=== PATIENT | male | born 1990 | race Two or more races ===

== ENCOUNTER 2024-12-01 11:25 | Emergency (ER) | payer MEDICAID, SELFPAY ==
[2024-12-01 11:26] VITALS: BMI 23.4
[2024-12-01 11:49] VITALS: BP 90/60; PULSE 82; RESP 18; TEMP 35.4; O2SAT 93
--- NOTE | 2024-12-01 11:54 | EDRME_ITS ---
Rapid Medical Screening Exam [facility] Arrival date/time: 12/01/24 11:25 Chief Complaint: Shortness of Breath/Dyspnea Vital signs: Vital Signs Temperature 95.7 F L 12/01/24 11:49 Pulse Rate 82 12/01/24 11:49 Respiratory Rate 18 12/01/24 11:49 Blood Pressure 90/60 12/01/24 11:49 Pulse Oximetry (%) 93 L 12/01/24 11:49 Oxygen Delivery Method Room Air 12/01/24 11:49 [facility] Narrative: 34-year-old patient with a history of cerebral palsy and is wheelchair-bound presents emergency department brought in by parents with complaint of cough and wheezing for the past 2 days. Parent denies sick contact or recent travel. Wheezing auscultated in all lung jeffery
--- NOTE | 2024-12-01 11:55 | XR_ITS ---
Examination: AP chest single view Technique: AP sitting portable chest single view Exam date and time: May 31, 2024 1227 hrs. Comparison 08/21/2024 Indications: Coughing beginning 2 weeks ago. Findings: Bilateral perihilar pneumonia Normal heart size Tracheostomy tube tip 23 mm above coredll Impression: Bilateral perihilar pneumonia
[2024-12-01 16:39] LABS: Lactate (Lactic Acid) 1.6 mMol/L (0.4-2.0)
[2024-12-01 16:46] VITALS: BP 98/65; PULSE 74; RESP 18; TEMP 36.6; O2SAT 93
[2024-12-01 16:48] LABS: Basophils % (Auto) 0 % (0-2.5); Eosinophils # (Auto) 0.2 Thou/mm3 (0.0-0.5); Eosinophils % (Auto) 2 % (0-10); Hematocrit 39.7 % (41.0-53.0); Immature Granulocytes % (Auto) 0 % (0-0); Immature Granulocytes Auto 0.02 Thou/mm3 (0.00-0.00); Lymphocytes # (Auto) 0.3 Thou/mm3 (1.0-4.8); Lymphocytes % (Auto) 4 % (10-50); Mean Corpuscular HGB Conc 35.3 g/dl (31.0-37.0); Mean Corpuscular Hemoglobin 33.7 pg (25.0-35.0); Mean Corpuscular Volume 96 fL (80-100); Monocytes # (Auto) 0.4 Thou/mm3 (0.0-0.8); Monocytes % (Auto) 5 % (0-12); Neutrophils # (Auto) 7.3 Thou/mm3 (1.8-7.7); Neutrophils % (Auto) 89 % (37-80); Nucleated Red Blood Cell % 0 /100 WBC (0); Platelet Count 93 Thou/mm3 (140-440); RDW Standard Deviation 60.1 fL (35.1-43.9); Red Blood Count 4.15 Miln/mm3 (4.50-5.90); White Blood Count 8.2 Thou/mm3 (3.8-10.6)
--- NOTE | 2024-12-01 16:56 | PD.EDADULT ---
ED General RME/HPI General Chief complaint: Shortness of Breath/Dyspnea Stated complaint: SOB, congestion x 2 days Time Seen by Provider: 12/01/24 16:42 Arrival date/time: 12/01/24 11:25 CC: Cough onset yesterday patient has a history of cerebral palsy is wheelchair-bound., managed by family members who state that the cough was persistent since yesterday. No fever at home. 1 family members ill with URI type symptoms last week but no other patients family members are ill. RME / HPI RME / HPI narrative: 34-year-old patient with a history of cerebral palsy and is wheelchair-bound presents emergency department brought in by parents with complaint of cough and wheezing for the past 2 days. Parent denies sick contact or recent travel. Wheezing auscultated in all lung jeffery Related Data Home Medications ?Medication ?Instructions ?Recorded ?Confirmed albuterol sulfate 2.5 mg/3 mL 2.5 mg inhalation PRN PRN 03/06/24 03/06/24 (0.083 %) solution for nebulization Respiratory Distress baclofen 20 mg tablet 20 mg feeding tube TID 03/06/24 03/06/24 clorazepate dipotassium 3.75 mg 3.75 mg feeding tube BID 03/06/24 03/06/24 tablet phenobarbital 32.4 mg tablet 32.4 mg feeding tube BID 03/06/24 03/06/24 topiramate 200 mg tablet 200 mg feeding tube BID 03/06/24 03/06/24 Previous Rx's ?Medication ?Instructions ?Recorded levofloxacin 750 mg tablet 750 mg PO QDAY #5 tabs 03/15/24 levofloxacin 500 mg tablet 500 mg PO Q24H 7 days #7 tabs 12/01/24 Allergies Allergy/AdvReac Type Severity Reaction Status Date / Time No Known Allergies Allergy Verified 03/06/24 09:58 Review of Systems Review of Systems Narrative Review of Systems: Per mother GEN: No fever, no chills, no weight loss EYES: No discharge, no visual changes, no pain HEENT: No ear pain, no congestion, no sore throat PULM: No shortness of breath, no cough, no congestion CV: No chest pain, no dyspnea on exertion, no palpitations GI: No nausea, no vomiting, no diarrhea, no pain, no constipation : No frequency, no urgency, no dysuria MUSC/SKEL: No joint pain, no back pain SKIN: No rash PSYCH: No hallucinations, no depression HEME/LYMPH: No easy bleeding or bruising tendencies NEURO: No weakness, no headache Past Medical History Past Medical History NEUROLOGIC: Positive Neurological Disorders, Seizures and Cerebral Palsy CARDIAC: Negative Cardiac Disorders or Congestive Heart Failure RESPIRATORY: Positive Asthma (trach in place) and Pneumonia; Negative Chronic Obstructive Pulmonary Disease (COPD) GENITOURINARY: Negative Renal Disease ENDOCRINE: Negative Diabetes Mellitus Type 1 or Diabetes Mellitus Type 2 HEMATOLOGIC: Negative Sickle Cell Disease Surgical History SURGICAL: Positive Tracheostomy and Gastrostomy Social History SMOKING STATUS: Never smoker ED Exam Narrative Physical exam: [General: Appears in not in any acute distress Head normocephalic HEENT: Eyes are closed but when lids are open I patient is tracking. Within acceptable limits Neck is supple nontender, trach site is clean dry and intact. Chest equal chest rise nontender to palpation Respiratory: Patient has baseline crackles no tachypnea CV: Rate rhythm is regular no murmurs rubs or clicks Abdomen is distended secondary to body habitus soft nontender no masses positive bowel sounds all 4 quadrants Back: No CVA tenderness no spinous process tenderness from cervical spine thoracic and lumbar spine Skin: Intact no petechiae rash induration ulceration or crepitus Extremities: Deconditioned and flaccid but range of motion passively. Cap refill less than 2 seconds Neuro: Baseline obtunded Course Quality Measures VTE prophylaxis Orders Category Date Time Status Bedside COVID-19 Antigen Test NOW Care 12/01/24 11:55 Active Bedside COVID-19 Antigen Test NOW Care 12/01/24 16:53 Active Bedside Influenza A&B Antigen Test NOW Care 12/01/24 11:56 Completed Bedside Influenza A&B Antigen Test NOW Care 12/01/24 16:54 Completed XR chest 1V Stat Exams 12/01/24 11:55 Completed CBC Stat Lab 12/01/24 16:24 Completed CMP [Comprehensive Metabolic Panel] Stat Lab 12/01/24 16:24 Completed Lactic Acid [Lactate (Lactic Acid)] Stat Lab 12/01/24 16:24 Completed Procalcitonin Stat Lab 12/01/24 16:24 Completed Albuterol/Ipratr Rt Naila [Duoneb Rt Naila] Med 12/01/24 17:12 Discontinued 3 ml INH X1 ONE cefTRIAXone [Rocephin] Med 12/01/24 16:08 Discontinued 1,000 mg IV X1 ONE cefTRIAXone [Rocephin] 1,000 mg Med 12/01/24 17:23 Discontinued Lidocaine 1% 20 ml [Xylocaine 1% 20 ML] 2.1 ml IM X1 Vital Signs Vital signs: Vital Signs Temperature 95.7 F L 12/01/24 11:49 Pulse Rate 82 12/01/24 11:49 Respiratory Rate 18 12/01/24 11:49 Blood Pressure 90/60 12/01/24 11:49 Pulse Oximetry (%) 93 L 12/01/24 11:49 Oxygen Delivery Method Room Air 12/01/24 11:49 [facility] Patient data External records reviewed:: [facility] previous records Clinical information provided by:: parent Social determinants that could affect healthcare access:: none Patient has the following chronic illnesses:: Cerebral palsy, deconditioning How is presenting disease/condition affected by chronic disease/condition?: uneffected by Evaluation data The following diagnostics were reviewed and interpreted by me:: lab results and radiology exam(s) Lab and/or radiology exams considered but not ordered:: CBC shows no acute leukocytosis anemia thrombocytopenia CMP shows no significant electrolyte imbalances renal impairment transaminitis or T. bili elevation COVID influenza are negative Chest x-ray as interpreted by me read by radiology shows a mild perihilar infiltrate Lactic acid is negative Procalcitonin is mildly elevated 1.09. Interpretation Summary: Although the patient's influenza and COVID are negative concerned that this is bacterial versus viral pneumonia given the patient's chronic conditions will medicate the patient with antibiotics here and start him on antibiotics home family member was advised if he does not improve in the next 48 hours to return for reevaluation. Medications Medications considered but not ordered:: None Medication administrations:: Medication Administration History Discontinued Medications Albuterol/Ipratropium (Albuterol/Ipratropium (Duoneb) Rt Naila 3 Ml Nebu) 3 ml INH X1 ONE Stop: 12/01/24 17:13 Ceftriaxone Sodium (Ceftriaxone Sodium 500 Mg Vial) 1,000 mg IV X1 ONE Stop: 12/01/24 16:09 Ceftriaxone Sodium 1,000 mg/ (Lidocaine HCl 2.1 ml) 0 mg IM X1 ONE Stop: 12/01/24 17:24 None Consultations Consultation(s) initiated? (list below): No Diagnosis Differential Diagnosis ED Complaint MDM: Pneumonia viral syndrome UTI Most likely diagnosis given after review of the tests above:: Pneumonia Admission Indicated Admission indicated?: not indicated Explain why admission is indicated or not indicated:: Stable for outpatient follow-up Admission Request Was there a request for admission?: No Disposition Plan Disposition Plan: Discharge Discharge Attestation Discharge Attestation: The patient and all family members were given an opportunity to ask questions and understood the discharge instructions. Discharge instructions specifically effects, indications for sooner follow up or return to the emergency department, and the expected course of current diagnosis. Patient condition: Stable Medical Decision Making Differential Diagnosis Differential Diagnosis: Pneumonia viral syndrome UTI Lab Data 12/01/24 16:24 12/01/24 16:24 Labs: Lab Results 12/01/24 Range/Units 16:24 WBC 8.2 (3.8-10.6) Thou/mm3 RBC 4.15 L (4.50-5.90) Miln/mm3 Hgb 14.0 (13.5-16.0) g/dL Hct 39.7 L (41.0-53.0) % MCV 96 (80-100) fL MCH 33.7 (25.0-35.0) pg MCHC 35.3 (31.0-37.0) g/dl RDW Std Deviation 60.1 H (35.1-43.9) fL Plt Count 93 L (140-440) Thou/mm3 Neut % (Auto) 89 H (37-80) % Lymph % (Auto) 4 L (10-50) % Russell % (Auto) 5 (0-12) % Eos % (Auto) 2 (0-10) % Baso % (Auto) 0 (0-2.5) % Neut # (Auto) 7.3 (1.8-7.7) Thou/mm3 Lymph # (Auto) 0.3 L (1.0-4.8) Thou/mm3 Russell # (Auto) 0.4 (0.0-0.8) Thou/mm3 Eos # (Auto) 0.2 (0.0-0.5) Thou/mm3 Baso # (Auto) 0.0 (0.0-0.2) Thou/mm3 Immature Gran # (Auto) 0.02 H (0.00-0.00) Thou/mm3 Absolute Nucleated RBC 0.00 (0.00-0.00) Thou/mm3 Immature Gran % 0 (0-0) % Nucleated RBC % 0 (0) /100 WBC Sodium 135 L (136-145) mMol/L Potassium 4.3 (3.4-5.1) mMol/L Chloride 102 (98-107) mMol/L Carbon Dioxide 22.5 (20.0-31.0) mMol/L Anion Gap 11 (7-16) BUN 16 (9-23) mg/dL Creatinine 0.7 (0.6-1.3) mg/dL Estim Creat Clear Calc 106.2 (>60) mL/min eGFR > 60 (60 - ) See Note BUN/Creatinine Ratio 23 H (12-20) Ratio Glucose 87 (74-106) mg/dL Calculated Osmolality 270 L (275-295) Lactic Acid 1.6 (0.4-2.0) mMol/L Calcium 9.5 (8.3-10.6) mg/dL Corrected Calcium 9.5 (8.5-10.1) mg/dL Total Bilirubin 0.3 (0.3-1.2) mg/dL AST 62 H (0-34) U/L ALT 70 H (10-49) U/L Alkaline Phosphatase 224 H (46-116) U/L Total Protein 7.6 (5.7-8.2) gm/dL Albumin 4.2 (3.5-5.0) gm/dL Globulin 3.4 (2.3-3.5) gm/dL Albumin/Globulin Ratio 1.2 (1.2-2.2) Procalcitonin 1.18 H (0.0-0.49) ng/ml Discharge Plan Plan Patient Disposition: HOME (Self Care) Patient condition on transfer: Stable Prescriptions/Referrals Prescriptions/Med Rec: New levofloxacin 500 mg tablet 500 mg PO Q24H 7 Days Qty: 7 0RF No Action albuterol sulfate 2.5 mg /3 mL (0.083 %) solution for nebulization 2.5 mg inhalation PRN PRN (Reason: Respiratory Distress) clorazepate dipotassium 3.75 mg tablet 3.75 mg feeding tube BID Rx Instructions: 1/2 tab bid baclofen 20 mg tablet 20 mg feeding tube TID Rx Instructions: 40mg am, 30mg at noon, and 40mg pm topiramate 200 mg tablet 200 mg feeding tube BID phenobarbital 32.4 mg tablet 32.4 mg feeding tube BID levofloxacin 750 mg tablet 750 mg PO QDAY Qty: 5 0RF Referrals: Ever Duarte MD [Primary Care Provider] - In 1 week Problem List Clinical Impression: Pneumonia Patient/Caregiver Discharge Instructions Education Materials: ED Pneumonia (Adult) Additional Instructions: Give the medications as prescribed once a day for the next 7 days if after 2 days the patient worsens return to the emergency room for reevaluation. Print Language: Japanese Stand Alone Forms: Aruna Award Info., Patient Portal Info Letter PA/SANJAY Supervising Physician PA/SANJAY Supervising Physician: Cosme Lindsey ENP
[2024-12-01 17:11] LABS: Alanine Aminotransferase 70 U/L (10-49); Albumin, Serum 4.2 gm/dL (3.5-5.0); Albumin/Globulin Ratio 1.2 (1.2-2.2); Alkaline Phosphatase 224 U/L (46-116); Anion Gap 11 (7-16); Aspartate Amino Transferase 62 U/L (0-34); BUN/Creatinine Ratio 23 Ratio (12-20); Bilirubin,Total 0.3 mg/dL (0.3-1.2); Blood Urea Nitrogen 16 mg/dL (9-23); Calcium 9.5 mg/dL (8.3-10.6); Calcium (Corrected) 9.5 mg/dL (8.5-10.1); Carbon Dioxide 22.5 mMol/L (20.0-31.0); Chloride 102 mMol/L (98-107); Creatinine (Component) 0.7 mg/dL (0.6-1.3); Estimated Creatinine Clearance 106.2 mL/min (>60); Globulin 3.4 gm/dL (2.3-3.5); Glucose 87 mg/dL (74-106); Osmolality,Calculated 270 (275-295); Potassium 4.3 mMol/L (3.4-5.1); Procalcitonin 1.18 ng/ml (0.0-0.49); Sodium 135 mMol/L (136-145); Total Protein 7.6 gm/dL (5.7-8.2); eGFR > 60 See Note
[2024-12-01 17:56] VITALS: PULSE 87; RESP 20; O2SAT 97
[2024-12-01] MEDS: ALBUTEROL/IPRATROPIUM (Duoneb) RT SOL 3 ML NEBU INH (17:56)
[2024-12-01] MEDS: cefTRIAXone 1,000 MG, LIDOCAINE 1% 20 ML 2.1 ML IM (18:00)
[2024-12-01 18:37] VITALS: BP 104/61; PULSE 67; RESP 18; O2SAT 91
== END 2024-12-01 18:51 | disposition home or self-care (01) ==
PROVIDERS: Physician Assistant; Emergency Provider Emergency Medicine; PCP Family Medicine
DX: J18.9 Pneumonia, unspecified organism (principal)
CPT/HCPCS: 36415; 71045; 80053; 83605; 84145; 85025; 87400; 87811; 94640; 96372; 99283; A9270; J0696; J3490

== ENCOUNTER 2025-03-31 03:46 | Inpatient (IN) | payer MEDICAID, SELFPAY ==
[2025-03-31] VITALS (66 sets, daily range): BP systolic 86–115; BP diastolic 48–83; PULSE 85–131; RESP 13–51; TEMP 36.2–38.4; O2SAT 71–100; BMI 28.8
--- NOTE | 2025-03-31 04:31 | XR_ITS ---
Examination: AP chest single view Technique one AP portable semiupright chest single view Exam date and time: March 31, 2025 at 0446 hours Comparison December 01, 2024 INDICATIONS: SOB today. FINDINGS: Diffuse bilateral lung opacity Mild to moderate elevation left hemidiaphragm. Normal heart size. Tracheostomy tube tip 17 mm above the cordell IMPRESSION: Significant diffuse bilateral pneumonia
--- NOTE | 2025-03-31 04:41 | EDNOTE_ITS ---
ED General RME/HPI General Chief complaint: Shortness of Breath/Dyspnea Stated complaint: DIFFICULTY BREATHING, BLOOD FROM TRACH Time Seen by Provider: 03/31/25 04:16 Arrival date/time: 03/31/25 03:46 RME / HPI RME / HPI narrative: This patient is a 35-year-old male with past medical history of cerebral palsy, seizures on medication, status post PEG tube and tracheostomy presented to the ER with care provider with worsening shortness of breath desatting around 77% was started since almost a week associated with congestion, cough with phlegm pinkish in color. Caregiver reported the patient also had fever with chills. Care provider reported that when no one is sick at home and patient did not had flu vaccine. No nausea vomiting or loose stools were reported per patient's caregiver. Of note, patient was discharged in February 2024 due to empyema and Pseudomonas pneumonia. We ordered Zosyn 2.375 g x 1, Dexamethasone 6 mg IV x 1, doxycycline 100 mg IV x 1, breathing treatment, Mucomyst.ordered CBC, CMP, ABGs, lactic acid, pro calcitonin, magnesium, phosphorus, INR, sputum culture with Gram stain urinalysis. Bedside COVID-19 and influenza. Chest x-ray and chest PT. Per chart review patient's previous sputum grew Pseudomonas sensitive to Zosyn. Patient tested positive for COVID-19. Flu is negative. Patient would need to be admitted for Acute on chronic hypoxic resp failure likely to CAP and COVID-19. We ordered chest CTA to rule out PE due to wells' criteria of 3.0 and ABGs showed hypoxia with Po2 59. Pmx: Cerebral Palsy, Seizures, Chr PEG and trach tube Psx : PEG and Trach tube Allergies NKDA Home meds: Baclofen, albuterol, clorazepate, phenobarbital and topiramate complaint: Worsening SOB with cough and fever Onset (ago): week(s) Associated symptoms: cough, fever/chills and shortness of breath Related Data Home Medications ?Medication ?Instructions ?Recorded ?Confirmed albuterol sulfate 2.5 mg/3 mL 2.5 mg inhalation PRN OR N 03/06/24 03/06/24 (0.083 %) solution for nebulization Respiratory Distre ss baclofen 20 mg tablet 20 mg feeding tube TID 03/0603/06/24 clorazepate dipotassium 3.75 mg 3.75 mg feeding tube B ID 03/06/24 03/06/24 tablet phenobarbital 32.4 mg tablet 32.4 mg feeding tube BID 03/06/24 03/06/24 topiramate 200 mg tablet 200 mg feeding tube BID 02/2503/06/24 Previous Rx's ?Medication ?Instructions ?Recorded levofloxacin 750 mg tablet 750 mg PO QDAY #5 tabs 02/25 08/20 Allergies Allergy/AdvReac Type Severity Reaction Status Date / Time No Known Allergies Allergy Verified 03/31/25 03:47 Review of Systems Review of Systems Systems Reviewed: All systems reviewed, normal except as documented Past Medical History Past Medical History NEUROLOGIC: Positive Neurological Disorders, Seizures and Cerebral Palsy CARDIAC: Negative Cardiac Disorders or Congestive Heart Failure RESPIRATORY: Positive Asthma (trach in place) and Pneumonia; Negative Chronic Obstructive Pulmonary Disease (COPD) GENITOURINARY: Negative Renal Disease ENDOCRINE: Negative Diabetes Mellitus Type 1 or Diabetes Mellitus Type 2 HEMATOLOGIC: Negative Sickle Cell Disease Surgical History SURGICAL: Positive Tracheostomy and Gastrostomy Social History SMOKING STATUS: Never smoker ED Exam Narrative Physical exam: GENERAL APPEARANCE: Patient is awake short in height, bedbound with diffuse muscle atrophy and contracted limbs. HEENT: Microcephaly. AT. MMM. EOMI, clear conjunctiva, oropharynx filled with secretions NECK: Supple without lymphadenopathy. No stiffness or restricted ROM.trach tube with blow-by HEART: Regular rate and regular rhythm, normal S1/S2, no m/r/g LUNGS: Diffuse expiratory wheezing with decreased breath sounds. ABDOMEN: Soft, nontender, nondistended with good bowel sounds heard.PEG tube clean dry and intact. BACK: No CVAT, no obvious deformity. EXTREMITIES: All 4 limbs contracted. NEUROLOGICAL: Awake. Nonverbal at baseline appears to be responding to words. Contracted with good muscle tone in all 4 extremities. Skin: Warm and dry without any rash. Course Quality Measures none Orders Category Date Time Status Bedside COVID-19 Antigen Test NOW Care 03/31/25 04:28 Active Bedside Influenza A&B Antigen Test NOW Care 03/31/25 04:[address] Screening NOW Care 03/31/25 05:43 Active EKG (ED ONLY) *Do not use* NOW Care 03/31/25 04:55 Completed Referral Respiratory Therapy Stat Cons 03/31/25 04:[address] angio chest Stat Exams 03/31/25 05:43 Ordered CXRP [XR chest 1V portable] Stat Exams 03/31/25 04:31 Taken EKG (ED Only) Stat Exams 03/31/25 04:55 Ordered ABG [Arterial Blood Gas] Stat Lab 03/31/25 05:25 Completed Blood Culture (Lab) Stat Lab 03/31/25 05:20 Received CBC Stat Lab 03/31/25 05:20 Received CMP [Comprehensive Metabolic Panel] Stat Lab 03/31/25 05:20 Received Cocci Serology IgM with reflex to IgG [Cocci Serology, Lab 03/31/25 05:20 Received Unk History] Stat INR [Prothrombin Time with INR] Stat Lab 03/31/25 05:20 Received Lactate (Lactic Acid) Stat Lab 03/31/25 05:20 Received MRSA Nasal Screen Stat Lab 03/31/25 05:06 Ordered Mag [Magnesium] Stat Lab 03/31/25 05:20 Received Phosphorous Stat Lab 03/31/25 05:20 Received Procalcitonin Stat Lab 03/31/25 05:20 Received Sputum Culture and Gram Stain Stat Lab 03/31/25 04:35 Ordered Troponin I Stat Lab 03/31/25 05:20 Received Urinalysis Stat Lab 03/31/25 04:35 Ordered Acetylcysteine Rt 10% -10Ml [Mucomyst Rt 10% -10ml] Med 03/31/25 04:31 Discontinued 3 ml INH X1 ONE Albuterol/Ipratr Rt Naila [Duoneb Rt Naila] Med 03/31/25 04:31 Discontinued 3 ml INH X1 ONE Dexamethasone Inj [Decadron Inj] Med 03/31/25 05:03 Discontinued 6 mg IV X1 ONE Doxycycline Inj [Vibramycin Inj] 100 mg Med 03/31/25 04:31 Discontinued Sodium Chloride 0.9% (Pop) [NS 0.9% mini bag] 100 ml IV X1 MethylPREDNISolone. [SoluMEDROL Inj] Med 03/31/25 04:31 Discontinued 40 mg IVP X1 ONE Piper/Tazo 3.375 gm Premix [Zosyn] Med 03/31/25 04:33 Discontinued 3.375 gm in 50 ml IV X1 Sodium Chloride Rt Naila 10% [NS Rt Naila 10%] Med 03/31/25 04:35 Discontinued 5 ml INH X1 ONE Chest Physiotherapy Treatment DAILY RT 03/31/25 04:31 Active Sputum Induction PRN RT 03/31/25 04:45 Ordered Volume Ventilator Stat RT 03/31/25 05:49 Active Vital Signs Vital signs: Vital Signs Temperature 97.1 F 03/31/25 04:06 Pulse Rate 97 03/31/25 04:06 Respiratory Rate 22 H 03/31/25 04:06 Blood Pressure 106/64 03/31/25 04:06 Pulse Oximetry (%) 71 L 03/31/25 04:06 Oxygen Delivery Method Room Air 03/31/25 04:06 Discharge Plan Plan Patient Disposition: Admit Acute Care w/in Hospital Prescriptions/Referrals Prescriptions/Med Rec: No Action albuterol sulfate 2.5 mg /3 mL (0.083 %) solution for nebulization 2.5 mg inhalation PRN PRN (Reason: Respiratory Distress) clorazepate dipotassium 3.75 mg tablet 3.75 mg feeding tube BID Rx Instructions: 1/2 tab bid baclofen 20 mg tablet 20 mg feeding tube TID Rx Instructions: 40mg am, 30mg at noon, and 40mg pm topiramate 200 mg tablet 200 mg feeding tube BID phenobarbital 32.4 mg tablet 32.4 mg feeding tube BID levofloxacin 750 mg tablet 750 mg PO QDAY Qty: 5 0RF Referrals: No Primary/Family,Physician [Primary Care Provider] - In 1 week Problem List Clinical Impression: COVID-19, Pneumonia, Acute dyspnea, Sepsis Patient/Caregiver Discharge Instructions Print Language: Kinyarwanda Stand Alone Forms: Aruna Award Info., Patient Portal Info Letter MDM Medication Administration(s) Medication Administration History Discontinued Medications Acetylcysteine (Acetylcysteine Rt 10% 10 Ml Nebu) 3 ml INH X1 ONE Stop: 03/31/25 04:32 Albuterol/Ipratropium (Albuterol/Ipratropium (Duoneb) Rt Naila 3 Ml Nebu) 3 ml INH X1 ONE Stop: 03/31/25 04:32 Dexamethasone Sodium Phosphate (Dexamethasone Sod Phos Inj 10 Mg/Ml Vial) 6 mg IV X1 ONE Stop: 03/31/25 05:04 Last Admin: 03/31/25 05:21 Dose: 6 mg Documented By: EF Piperacillin/Tazobactam/Dextrose (Zosyn) 3.375 gm in 50 mls @ 100 mls/hr IV X1 ONE Stop: 03/31/25 05:02 Last Admin: 03/31/25 05:47 Dose: 100 mls/hr Documented By: EF Doxycycline Hyclate 100 mg/ (Sodium Chloride) 100 mls @ 100 mls/hr IV X1 ONE Stop: 03/31/25 05:30 Last Admin: 03/31/25 05:22 Dose: 100 mls/hr Documented By: EF Methylprednisolone Sodium Succinate (Methylprednisolone Sod Succ 40 Mg Vial) 40 mg IVP X1 ONE Stop: 03/31/25 04:32 Last Admin: 03/31/25 05:07 Dose: Not Given Documented By: EF Non-Admin Reason: Cancelled by Provider Sodium Chloride (Sodium Chloride Rt 10% 15 Ml Nebu) 5 ml INH X1 ONE Stop: 03/31/25 04:36
--- NOTE | 2025-03-31 04:55 | EKG_ITS ---
[facility] Test Date: 2025-03-31 Pat Name: ARCHANA RAMSEY Department: Room: - Gender: Male [employer]: : 1990 Requested By: Zach Zamudio Order Number: [id number] Reading MD: Zach Zamudio Measurements Intervals [place] Rate: 105 P: 99 DE: 121 QRS: 120 QRSD: 116 T: -18 QT: 327 QTc: 433 Interpretive Statements SINUS TACHYCARDIA ARM LEADS REVERSED [INVERTED P AND QRS IN I] ABNORMAL RHYTHM ECG Compared to ECG 03/06/2024 10:44:58 Atrial flutter no longer present Incomplete right bundle-branch block no longer present /store/S0/[id number]/[id number]
[2025-03-31] MEDS: DEXAMETHASONE SOD PHOS INJ 10 MG/ML VIAL 6 MG IV (05:21)
[2025-03-31] MEDS: DOXYCYCLINE INJ 100 MG in SODIUM CHLORIDE 0.9% (POP) 100 ML IV (05:22)
[2025-03-31 05:28] LABS: Base Excess -3 (-3-3); HCO3 21 mEq/L (20-26); Inspired Oxygen, FIO2 50 %; O2 Saturation 93 % (91-98); PCO2 35 mmHg (32.0-48.0); pH, Arterial 7.39 (7.35-7.45)
[2025-03-31 05:34] LABS: Allen Test Performed/OK; PO2 59 mmHg (83-108); Puncture Site Left Radial
[2025-03-31] MEDS: PIPER/TAZO 3.375 GM PREMIX 3.375 GM/50 ML BAG IV ×3 (05:47→21:18)
[2025-03-31 05:59] LABS: Lactate (Lactic Acid) 5.3 mMol/L (0.4-2.0)
--- NOTE | 2025-03-31 06:01 | XR_ITS ---
Examination: CTA chest with intravenous contrast 2-D reconstructions 3-D reconstructions, vascular Date and time of exam: March 31, 2025 1759 hours Comparison March 14, 2024 INDICATIONS: Shortness of breath, hypoxia, tachypnea today with blood visualized from the tracheostomy CTDI: vol (mGy) 27.1 DLP: (mGycm) 587 Technique: Multiple axial sections of the thorax have been obtained. 3 mm slice thickness, from below the hemidiaphragms to above the apices of the lungs. Mediastinal and lung density settings have been obtained. 2-D sagittal and coronal reconstructions. 3-D angiographic renderings, 3-D volume renderings, 3D post processing, vascular maximum intensity projections obtained. Contrast administered is 100 cc Isovue-370. Low dose protocols were performed. One or more of the following dose reduction techniques were used; automated exposure control, adjustment of the mA and/or KV according to patient size, use of iterative reconstruction technique. Findings: Tracheostomy tube tip 22 mm above the cordell No thoracic aortic aneurysmal dilatation Pulmonary artery segments are not enlarged Bilateral extensive pneumonia, severe in the left lung Right central line tip satisfactory position, no pneumothorax No visualized liver splenic lesion Contracted gallbladder No pancreatic or adrenal mass Atrophic right kidney with multiple staghorn calculi but no hydronephrosis Abdominal aorta is not enlarged IMPRESSION: Negative for pulmonary artery emboli Extensive bilateral pneumonia, severe in the left lung Right internal jugular central line tip satisfactory position, no pneumothorax Atrophic right kidney with multiple staghorn calculi
[2025-03-31 06:12] LABS: Basophils % (Auto) 0 % (0-2.5); Eosinophils % (Auto) 0 % (0-10); Hematocrit 41.3 % (41.0-53.0); Hemoglobin 14.6 g/dL (13.5-16.0); Immature Granulocytes % (Auto) 0 % (0-0); Immature Granulocytes Auto 0.02 Thou/mm3 (0.00-0.00); Lymphocytes # (Auto) 0.7 Thou/mm3 (1.0-4.8); Lymphocytes % (Auto) 15 % (10-50); Mean Corpuscular HGB Conc 35.4 g/dl (31.0-37.0); Mean Corpuscular Hemoglobin 34.8 pg (25.0-35.0); Mean Corpuscular Volume 98 fL (80-100); Monocytes # (Auto) 0.2 Thou/mm3 (0.0-0.8); Monocytes % (Auto) 5 % (0-12); Neutrophils # (Auto) 3.8 Thou/mm3 (1.8-7.7); Neutrophils % (Auto) 80 % (37-80); Nucleated Red Blood Cell % 0 /100 WBC (0); Platelet Count 86 Thou/mm3 (140-440); White Blood Count 4.8 Thou/mm3 (3.8-10.6)
[2025-03-31 06:13] LABS: Prothrombin Time 11.3 Seconds (9.0-12.2)
[2025-03-31] MEDS: RINGERS LACTATED 1000 ML 1,000 ML 999 ML IV (06:21)
[2025-03-31] MEDS: SODIUM CHLORIDE RT 10% 15 ML NEBU 5 ML INH (06:22)
[2025-03-31] MEDS: ALBUTEROL/IPRATROPIUM (Duoneb) RT SOL 3 ML NEBU INH ×5 (06:22→23:39)
[2025-03-31 06:24] LABS: Alanine Aminotransferase 73 U/L (10-49); Albumin, Serum 3.7 gm/dL (3.5-5.0); Alkaline Phosphatase 752 U/L (46-116); Anion Gap 14 (7-16); Aspartate Amino Transferase 145 U/L (0-34); BUN/Creatinine Ratio 21 Ratio (12-20); Bilirubin,Total 0.3 mg/dL (0.3-1.2); Blood Urea Nitrogen 15 mg/dL (9-23); Calcium 8.8 mg/dL (8.3-10.6); Carbon Dioxide 21.8 mMol/L (20.0-31.0); Chloride 106 mMol/L (98-107); Creatinine (Component) 0.7 mg/dL (0.6-1.3); Globulin 3.7 gm/dL (2.3-3.5); Glucose 88 mg/dL (74-106); Magnesium 1.7 mg/dL (1.6-2.6); Osmolality,Calculated 282 (275-295); Phosphorous 3.1 mg/dL (2.4-5.1); Potassium 3.7 mMol/L (3.4-5.1); Procalcitonin 2.06 ng/ml (0.0-0.49); Sodium 142 mMol/L (136-145); Total Protein 7.4 gm/dL (5.7-8.2); Troponin I < 0.020 ng/mL (0.0-0.045); eGFR > 60 See Note
--- NOTE | 2025-03-31 07:22 | PD.EDADDENDU ---
Emergency Room Addendum Addendum Narrative: 0600: Care assumed from resident Dr. Serrano Wasiq working with Dr. Knight, the previous shift emergency physician. Past medical, surgical, social and family history reviewed. Vitals and home medications reviewed. I will assume the care of the patient at this time, pending remainder of diagnostics tests and final disposition. Please refer to the emergency department record for history and examination from initial visit.? Physical exam by me shows patient under no acute distress at this time. Plan to admit for sepsis, pneumonia, and hypoxia. Discussed test HPI, PMHx, lab, radiology results and/or management with resident working with hospitalist Dr. Piedra. Will admit for further evaluation and management. Accepts patient for admission. Diagnoses: -COVID -Pneumonia -Acute dyspnea -Sepsis
--- NOTE | 2025-03-31 08:40 | PC.NURSE ---
UNABLE TO PLACE A 20G IV AT THIS TIME FORE CT ANGIO; THIS RN TRIED X1, NANCY MCKEON TRIED X2; UNSUCCESSFUL. DR. OTERO MADE AWARE.
[2025-03-31 08:47] LABS: Reflex Lactate? Y
[2025-03-31] MEDS: PANTOPRAZOLE INJ 40 MG VIAL IVP (10:27)
[2025-03-31] MEDS: PHENobarbitaL 32.4 MG TABLET GT ×2 (10:27→21:17)
--- NOTE | 2025-03-31 10:30 | PC.NURSE ---
@1030- SPOKE TO REGARDIN UNSUCCESFUL IV PLACEMENT AGAIN; PER DR. RAMSEY, WILL COME AND PLACE CENTRAL LINE INSTEAD. @1300- SPOKE TO DR. COLON AGAIN REGARDING WHEN HE WILL BE PLACING THE CENTRAL LINE; PER DR. COLON , ICU TEAM WITH DR. MITCHELL ARE ACTUALLY GONNA COME DOWN AND PLACE THE CENTRAL LINE IN.
[2025-03-31] MEDS: RINGERS LACTATED 1000 ML 500 ML 999 ML IV (10:40)
[2025-03-31] MEDS: ACETAMINOPHEN 325 MG TABLET 650 MG PO (10:57)
[2025-03-31] MEDS: TOPIRAMATE 100 MG TABLET 200 MG GT ×2 (10:57→21:17)
[2025-03-31] MEDS: VANCOMYCIN/NS 1 GM IVPB 200 ML IV (11:06)
[2025-03-31 12:32] LABS: Lactic Acid, 3 HR 0.8 mMol/L (0.4-2.0)
[2025-03-31] MEDS: LORazepam 2 MG/ML VIAL 1 MG IVP (13:05)
--- NOTE | 2025-03-31 13:51 | PC.NURSE ---
SPOKE TO DR. MITCHELL AND CLARIFIED WHEN ICU TEAM WILL BE COMING TO PT'S ROOM FOR CENTRAL LINE PLACEMENT; PER DR. MITCHELL, WILL COME WITH MY TEAM SOON.
[2025-03-31 15:13] LABS: Cocci Serology, IgM Negative (Negative)
--- NOTE | 2025-03-31 15:49 | ESHP_ITS ---
<Statement entered by Oseas Piedra MD - 04/14/25 14:11> I reviewed above note and agree with findings and plans. I have also personally examined the patient with medicine team and went over assessment and plan with medical team including internal combustion engineer and resident physician. Documentation for date of: 03/31/25 HPI History of Present Illness Chief complaint: Hypoxia History of present illness: 35-year-old male with past medical history of cerebral palsy, seizures on phenobarbital and topiramate, status post PEG tube and tracheostomy, history of empyema and Pseudomonas pneumonia, who presented to the ED with tachypnea and desaturation around 70%. Per the caregiver symptom onset around a week ago with associated congestion and cough with pinkish phlegm as well as fever and chills. Patient is admitted for Acute hypoxic respiratory failure secondary to Ventilator associated pneumonia + Covid pneumonia. ED course: ED vitals: BP 106 64, HR 97, RR 22, temp 97.1 ?F, O2 saturation 71%. ED labs: Thrombocytopenia, ABG with pH 7.39, with low PO2, CHEM panel mostly unremarkable aside from elevated liver enzymes and alk phos, procalcitonin 2.06, lactic acid 5.3. ED Dx: Chest x-ray shows significant bilateral pneumonia patient was found to also be positive for COVID-19. ED treatment: Zosyn, dexamethasone, doxycycline, DuoNebs, 1 L IVF's PMHx: As above SX Hx: Tracheostomy, PEG tube Social Hx: Unknown FH X: Unknown No known drug allergies Medications: Baclofen, albuterol, clorazepate, phenobarbital and topiramate Review of Systems Review of Systems ROS Unobtainable: unobtainable due to mental status and unobtainable due to medical condition Exam Vital Signs Temp Pulse Resp BP Pulse Ox O2 Del Method O2 Flow Rate 99.9 F 92 26 H 93/65 100 Mechanical Ventilation 30 03/31/25 13:00 03/31/25 14:28 03/31/25 14:28 03/31/25 14:28 03/31/25 14:28 03/31/25 13:00 03/31/25 06:16 FiO2 80 03/31/25 14:28 Narrative Exam Physical Exam GENERAL: NAD, nonverbal HEENT: Moist mucosa. Eyes open, symmetrical, & clear CARDIO: Heart RRR, no obvious murmurs PULM: + coughing/dyspnea, tracheostomy, diminished BS GI: Abdomen soft, nondistendedPEG tube in place, BS+ SKIN/MSK/EXT: contracted, Pedal pulses present B/L Results: Labs 03/31/25 05:20 03/31/25 05:20 Labs: Short CBC 03/31/25 Range/Units 05:20 WBC 4.8 (3.8-10.6) Thou/mm3 Hgb 14.6 (13.5-16.0) g/dL Hct 41.3 (41.0-53.0) % Plt Count 86 L (140-440) Thou/mm3 BMP 03/31/25 05:20 Sodium 142 Potassium 3.7 Chloride 106 Carbon Dioxide 21.8 BUN 15 Creatinine 0.7 Glucose 88 Calcium 8.8 Cardiac Enzymes 03/31/25 Range/Units 05:20 Troponin I < 0.020 (0.0-0.045) ng/mL Liver Function 03/31/25 Range/Units 05:20 Total Bilirubin 0.3 (0.3-1.2) mg/dL AST 145 H (0-34) U/L ALT 73 H (10-49) U/L Alkaline Phosphatase 752 H (46-116) U/L Albumin 3.7 (3.5-5.0) gm/dL ABG Interpretation ABG results: 03/31/25 05:25 ABG pH 7.39 ABG pCO2 35 ABG pO2 59 L* ABG HCO3 21 ABG O2 Saturation 93 ABG Base Excess -3 Quality Measures Quality Measures none Medications Home Medications and Allergies Home Medications ?Medication ?Instructions ?Recorded ?Confirmed ?Type albuterol sulfate 2.5 mg/3 mL 2.5 mg inhalation PRN GA N 03/06/24 03/31/25 History (0.083 %) solution for nebulization Respiratory Distre ss baclofen 20 mg tablet 20 mg feeding tube TID 03/0603/31/25 History clorazepate dipotassium 3.75 mg 3.75 mg feeding tube B ID 03/06/24 03/31/25 History tablet phenobarbital 32.4 mg tablet 32.4 mg feeding tube BID 03/06/24 03/31/25 History topiramate 200 mg tablet 200 mg feeding tube BID 02/2503/31/25 History Allergies Allergy/AdvReac Type Severity Reaction Status Date / Time No Known Allergies Allergy Verified 03/31/25 03:47 Visit Medications Acetaminophen (Acetaminophen 325 Mg Tablet) 650 mg PO Q6H PRN PRN Reason: Fever >101.5 Stop: 04/30/25 09:07 Last Admin: 03/31/25 10:57 Dose: 650 mg Acetaminophen (Acetaminophen 325 Mg Tablet) 650 mg PO Q6H PRN PRN Reason: PAIN SCALE 1-3 (mild Stop: 04/30/25 09:13 Albuterol/Ipratropium (Albuterol/Ipratropium (Duoneb) Rt Naila 3 Ml Nebu) 3 ml INH Q4HRRT KATEY Stop: 04/30/25 10:59 Last Admin: 03/31/25 14:27 Dose: 3 ml Docusate Sodium (Docusate Sod 100 Mg Capsule) 100 mg PO QDAY [facility]; Protocol Stop: 05/01/25 08:59 Fentanyl Citrate (Fentanyl Cit Inj 50 Mcg/Ml Amp 2ml) 25 mcg IVP Q4H PRN PRN Reason: AGITATION Stop: 04/05/25 07:58 Piperacillin/Tazobactam/Dextrose (Zosyn) 3.375 gm in 50 mls @ 12.5 mls/hr IV Q8HR KATEY Stop: 04/07/25 13:59 Last Admin: 03/31/25 13:08 Dose: 12.5 mls/hr Lorazepam (Lorazepam 2 Mg/Ml Vial) 1 mg IVP Q6H PRN PRN Reason: AGITATION Stop: 04/05/25 07:59 Last Admin: 03/31/25 13:05 Dose: 1 mg Ondansetron HCl (Ondansetron Inj 2 Mg/Ml Inj 2 Ml) 4 mg IV Q6H PRN; Protocol PRN Reason: NAUSEA OR VOMITING Stop: 04/30/25 09:13 Pantoprazole Sodium (Pantoprazole Inj 40 Mg Vial) 40 mg IVP QDAY KATEY Stop: 04/30/25 09:14 Last Admin: 03/31/25 10:27 Dose: 40 mg Pharmacy Consult (Vancomycin Pharmacy To Dose 1 Each Each) 1 each IV QDAY PRN PRN Reason: RX Stop: 04/30/25 09:29 Phenobarbital (Phenobarbital 32.4 Mg Tablet) 32.4 mg GT BID [facility] Stop: 04/14/25 09:44 Last Admin: 03/31/25 10:27 Dose: 32.4 mg Sennosides (Senna Tablet) 1 tab PO QDAY [facility]; Protocol Stop: 05/01/25 08:59 Topiramate (Topiramate 100 Mg Tablet) 200 mg GT BID [facility] Stop: 04/30/25 09:44 Last Admin: 03/31/25 10:57 Dose: 200 mg Discontinued Medications Acetylcysteine (Acetylcysteine Rt 10% 10 Ml Nebu) 3 ml INH X1 ONE Stop: 03/31/25 04:32 Last Admin: 03/31/25 06:23 Dose: Not Given Albuterol/Ipratropium (Albuterol/Ipratropium (Duoneb) Rt Naila 3 Ml Nebu) 3 ml INH X1 ONE Stop: 03/31/25 04:32 Last Admin: 03/31/25 06:22 Dose: 3 ml Dexamethasone Sodium Phosphate (Dexamethasone Sod Phos Inj 10 Mg/Ml Vial) 6 mg IV X1 ONE Stop: 03/31/25 05:04 Last Admin: 03/31/25 05:21 Dose: 6 mg Piperacillin/Tazobactam/Dextrose (Zosyn) 3.375 gm in 50 mls @ 100 mls/hr IV X1 ONE Stop: 03/31/25 05:02 Last Infusion: 03/31/25 06:17 Dose: Infused Doxycycline Hyclate 100 mg/ (Sodium Chloride) 100 mls @ 100 mls/hr IV X1 ONE Stop: 03/31/25 05:30 Last Infusion: 03/31/25 06:22 Dose: Infused Lactated Ringer's (Lactated Ringers) 1,000 mls @ 999 mls/hr IV .Q1H1M ONE Stop: 03/31/25 07:10 Last Infusion: 03/31/25 07:40 Dose: Infused Lactated Ringer's (Lactated Ringers) 500 mls @ 999 mls/hr IV .Q31M ONE Stop: 03/31/25 09:48 Last Admin: 03/31/25 10:40 Dose: Not Given Lactated Ringer's (Lactated Ringers) 500 mls @ 999 mls/hr IV .Q31M ONE Stop: 03/31/25 11:00 Last Infusion: 03/31/25 11:30 Dose: Infused Vancomycin/Sodium Chloride (Vancomycin/Ns 1 Gm Ivpb) 200 mls @ 120 mls/hr IV X1 ONE Stop: 03/31/25 12:09 Last Infusion: 03/31/25 12:51 Dose: Infused Methylprednisolone Sodium Succinate (Methylprednisolone Sod Succ 40 Mg Vial) 40 mg IVP X1 ONE Stop: 03/31/25 04:32 Last Admin: 03/31/25 05:07 Dose: Not Given Sodium Chloride (Sodium Chloride Rt 10% 15 Ml Nebu) 5 ml INH X1 ONE Stop: 03/31/25 04:36 Last Admin: 03/31/25 06:22 Dose: 5 ml Assessment & Plan Plan 35-year-old male with past medical history of cerebral palsy, seizures on phenobarbital and topiramate, status post PEG tube and tracheostomy, history of empyema and Pseudomonas pneumonia, who presented to the ED with tachypnea and desaturation around 70%. Per the caregiver symptom onset around a week ago with associated congestion and cough with pinkish phlegm as well as fever and chills. #Acute hypoxic respiratory failure in the setting of #Sepsis secondary to #Ventilator associated pneumonia #COVID-pneumonia #Hemoptysis #Lactic acidosis-resolved Vitals showed temp 101.2, HR 131, tachypnea rate of 30s-40s, SIRS 3/4, end organ damage lung, saturating 71% No leukocytosis noted, procalcitonin elevated, lactic acid 5.3, however after fluids normalized CXR showed significant bilateral pneumonia patient was found to also be positive for COVID-19. Reported that patient has been having blood from tracheostomy, spoke to ICU team will upgrade to ICU for possible bronchoscopy procedure. 1L Bolus given in ED Wells score: 4.0, hemoptysis, immobilization, HR>100, ? 500ml bolus given ? On vancomycin ? On Zosyn ? Chest PT ? CTA ordered ? DuoNebs ordered ? Blood cultures ordered ? Sputum cultures ordered ? Follow-up cocci ? Follow-up UA #History of seizures #History of cerebral palsy ? Phenobarbital 32.4 mg twice daily resumed as taken at home ? Topamax 200 mg twice daily resumed as taken at home #elevated liver enzymes likely in the setting of sepsis - monitor at this time #thrombocytopenia - monitor at this time Case discussed with my attending Dr. Tadeo Gutierrez MD PGY-1 Disposition: tele -->ICU Fluids: None Feeding: NPO Thrombo prophylaxis: SCDs Gastric Ulcer prophylaxis: Pantoprazole CODE STATUS: Full code
--- NOTE | 2025-03-31 16:43 | XR_ITS ---
Examination: AP chest single view TECHNIQUE: AP portable semiupright chest single view Exam date and time: March 31, 2025 at 1653 hours Comparison March 31, 2025 1646 hours INDICATIONS: Status post central line placement FINDINGS: Bilateral pneumonia, more severe in the left upper lobe Right internal jugular central line tip right atrium Tracheostomy tube tip 21 mm above cordell IMPRESSION: Bilateral pneumonia, more severe in the left upper lobe, consider aspiration pneumonia Right internal jugular central line tip right atrium, no pneumothorax
--- NOTE | 2025-03-31 16:45 | PD.RESPROC ---
Procedures Procedure Date / Time 03/31/25 1645 Procedure Narrative Procedure Narrative: Attending Attestation: I was present for entire procedure. Patient tolerated procedure well with no immediate complications. Minimal blood loss. Post procedure chest x-ray shows adequate placement of the tip of the catheter with no postprocedural pneumothorax. Central Line Placement Right IJ: Indication(s): poor, or inadequate peripheral venous access Informed consent obtained: obtained from surrogate decision maker (patient's father and mother) Time out done, and the following verified: correct patient, side and site and procedure Patient placed on monitor/pulse ox: Yes Hand Hygiene: soap & water and alcohol-based hand rub Max Sterile Barrier Techniques used: cap, mask, sterile gown, sterile gloves and sterile full body drape Central line prep: Povidone-Iodine 1% Local anesthesia used: lidocaine 1% Ultrasound used for placement: Yes Sterile Technique if Ultrasound used, including sterile gel: yes Central line lumen inserted: triple Post procedure: sutured in place, good blood return, all ports aspirated, flushed, capped and sterile dressing applied Post procedure x-ray: tip of catheter in good position and no pneumothorax seen Patient tolerated procedure: well Complications: none Procedure comment: Central Venous Catheter Placement Time: 4:00PM Procedure, site, and special equipment obtained. Patient placed supine in Trendelenburg position. Patient's right neck prepped and drapped in sterile manner. Lidocained applied to numb area. Needle introduced with aspiration of venous blood. Guide wire introduced. Scalpel used to place small nelda. Dilator introduced over guidewire. Central line catheter over guidewire. Guidewire removed. Central catheter secured in place via suture and biopathc to site. chest x-ray obtained. - The patient's plan was discussed with attending Dr. Dannie Ohara MD PGY1 Internal Medicine
--- NOTE | 2025-03-31 16:45 | PD.RESCONSUL ---
HPI Data of Consult Requesting Physician: Oseas Piedra MD Admitting Provider: Oseas Piedra MD Attending Provider: Oseas Piedra MD Primary Care Provider: Puja Strickland PA-C Consult Narrative History of present illness: 35-year-old male with past medical history of cerebral palsy, seizures on phenobarbital and topiramate, status post PEG tube and tracheostomy, history of empyema and Pseudomonas pneumonia, who presented to the ED with tachypnea and desaturation around 70%. Per the caregiver symptom onset around a week ago with associated congestion and cough with pinkish phlegm as well as fever and chills. Patient is admitted for Acute hypoxic respiratory failure secondary to Ventilator associated pneumonia + Covid pneumonia. ED course: ED vitals: BP 106 64, HR 97, RR 22, temp 97.1 ?F, O2 saturation 71%. ED labs: Thrombocytopenia, ABG with pH 7.39, with low PO2, CHEM panel mostly unremarkable aside from elevated liver enzymes and alk phos, procalcitonin 2.06, lactic acid 5.3. ED Dx: Chest x-ray shows significant bilateral pneumonia patient was found to also be positive for COVID-19. ED treatment: Zosyn, dexamethasone, doxycycline, DuoNebs, 1 L IVF's 03/31/2025 ICU consulted for sepsis, secondary COVID pneumonia complicated with hemoptysis and acute hypoxic respiratory failure requiring mechanical ventilation via tracheostomy. cc:: cc: Oseas Piedra MD Review of Systems Review of Systems Narrative Review of Systems: General appearance: NO weight change, NO fatigue, NO weakness, Subjective fever, Yes chills, NO night sweats, YES cough Skin: NO rash, NO itching, NO sores, NO moles HEENT: NO Trauma, NO nausea, NO vomiting, NO visual changes, NO blurry vision, NO double vision, NO tinnitus, NO vertigo, NO ear discharge, NO rhinorrhea, NO stuffiness, NO sneezing, NO allergy, NO epistaxis. NO Hoarseness, NO sore throat, NO swollen neck. Cardiac: NO Palpitations, NO dyspnea on exertion, NO orthopnea, NO paroxysmal nocturnal dyspnea, NO edema Respiratory: NO Shortness of Breath, NO Wheezing, NO Cough, NO Sputum, NO hemoptysis GI:NO appetite, NO nausea, NO vomiting, NO dysphagia, NO changes in bowel frequency, NO stool color, NO diarrhea, NO constipation, NO hemetemesis, NO hemorrhoids, NO melena, NO hematechezia, NO abdominal pain, NO jaundice Renal: NO frequency, NO hesitancy, NO urgency, NO hematuria, NO nocturia, NO incontinence MSK: NO muscle weakness, NO gout, NO arthritis, NO muscle stiffness Neuro: NO headaches, NO tremors, NO weakness, NO paralysis, NO seizures, NO loss of consciousness, NO numbness. Hem: NO anemia, NO easy bruising/bleeding, NO petechiae, NO purpura Endo: NO heat/cold intolerance, NO excessive sweating, NO polyuria, NO polydipsia, NO polyphagia, NO thyroid problems, NO diabetes Pysch: NO mood, NO anxiety, NO depression Exam Vital Signs Temp Pulse Resp BP Pulse Ox O2 Del Method O2 Flow Rate 99.9 F 92 26 H 93/65 100 Mechanical Ventilation 30 03/31/25 13:00 03/31/25 14:28 03/31/25 14:28 03/31/25 14:28 03/31/25 14:28 03/31/25 13:00 03/31/25 06:16 FiO2 80 03/31/25 14:28 Narrative Exam General Appearance: Alert & Oriented X0, thin male who is lying in bed in no acute distress HEENT: Asymmetrical skull and atraumatic. Conjunctivae pink and moist. Pupils equal, round, w/ decreased response to light and accommodation. External ear without lesion or discharge. Cardio: Normal Rate and Rhythm with S1 and S2 heart sounds. No murmurs or extra heart sounds auscultated. No bruits on carotid auscultation. No peripheral edema or cyanosis. Lungs: Symmetric with good expansion. Chest and back non-tender. Decreased sounds vesicular with rhonchi through out all lung jeffery. Abdomen: Non-tender, Non-distended, Normal Reactive Bowel Sounds Neuro: Yes Alert, NO cooperative, NO oriented to person, No place, and NO time. No-verbal. Upper motor strength 0/5 and Lower motor strength 0/5. Contracted. Results Labs 04/02/25 05:05 04/02/25 05:05 Labs: Short CBC 03/31/25 Range/Units 05:20 WBC 4.8 (3.8-10.6) Thou/mm3 Hgb 14.6 (13.5-16.0) g/dL Hct 41.3 (41.0-53.0) % Plt Count 86 L (140-440) Thou/mm3 BMP 03/31/25 05:20 Sodium 142 Potassium 3.7 Chloride 106 Carbon Dioxide 21.8 BUN 15 Creatinine 0.7 Glucose 88 Calcium 8.8 Cardiac Enzymes 03/31/25 Range/Units 05:20 Troponin I < 0.020 (0.0-0.045) ng/mL Liver Function 03/31/25 Range/Units 05:20 Total Bilirubin 0.3 (0.3-1.2) mg/dL AST 145 H (0-34) U/L ALT 73 H (10-49) U/L Alkaline Phosphatase 752 H (46-116) U/L Albumin 3.7 (3.5-5.0) gm/dL ABG Interpretation ABG results: 03/31/25 05:25 ABG pH 7.39 ABG pCO2 35 ABG pO2 59 L* ABG HCO3 21 ABG O2 Saturation 93 ABG Base Excess -3 Quality Measures Quality Measures none Medications Home Medications and Allergies Home Medications ?Medication ?Instructions ?Recorded ?Confirmed ?Type albuterol sulfate 2.5 mg/3 mL 2.5 mg inhalation PRN PRN 03/06/24 03/31/25 History (0.083 %) solution for nebulization Respiratory Distress baclofen 20 mg tablet 20 mg feeding tube TID 03/06/24 03/31/25 History clorazepate dipotassium 3.75 mg 3.75 mg feeding tube BID 03/06/24 03/31/25 History tablet phenobarbital 32.4 mg tablet 32.4 mg feeding tube BID 03/06/24 03/31/25 History topiramate 200 mg tablet 200 mg feeding tube BID 03/06/24 03/31/25 History Allergies Allergy/AdvReac Type Severity Reaction Status Date / Time No Known Allergies Allergy Verified 03/31/25 03:47 Visit Medications Acetaminophen (Acetaminophen 325 Mg Tablet) 650 mg PO Q6H PRN PRN Reason: Fever >101.5 Stop: 04/30/25 09:07 Last Admin: 03/31/25 10:57 Dose: 650 mg Acetaminophen (Acetaminophen 325 Mg Tablet) 650 mg PO Q6H PRN PRN Reason: PAIN SCALE 1-3 (mild Stop: 04/30/25 09:13 Albuterol/Ipratropium (Albuterol/Ipratropium (Duoneb) Rt Naila 3 Ml Nebu) 3 ml INH Q4HRRT [facility] Stop: 04/30/25 10:59 Last Admin: 03/31/25 14:27 Dose: 3 ml Docusate Sodium (Docusate Sod 100 Mg Capsule) 100 mg PO QDAY [facility]; Protocol Stop: 05/01/25 08:59 Fentanyl Citrate (Fentanyl Cit Inj 50 Mcg/Ml Amp 2ml) 25 mcg IVP Q4H PRN PRN Reason: AGITATION Stop: 04/05/25 07:58 Piperacillin/Tazobactam/Dextrose (Zosyn) 3.375 gm in 50 mls @ 12.5 mls/hr IV Q8HR [facility] Stop: 04/07/25 13:59 Last Admin: 03/31/25 13:08 Dose: 12.5 mls/hr Lorazepam (Lorazepam 2 Mg/Ml Vial) 1 mg IVP Q6H PRN PRN Reason: AGITATION Stop: 04/05/25 07:59 Last Admin: 03/31/25 13:05 Dose: 1 mg Ondansetron HCl (Ondansetron Inj 2 Mg/Ml Inj 2 Ml) 4 mg IV Q6H PRN; Protocol PRN Reason: NAUSEA OR VOMITING Stop: 04/30/25 09:13 Pantoprazole Sodium (Pantoprazole Inj 40 Mg Vial) 40 mg IVP QDAY [facility] Stop: 04/30/25 09:14 Last Admin: 03/31/25 10:27 Dose: 40 mg Pharmacy Consult (Vancomycin Pharmacy To Dose 1 Each Each) 1 each IV QDAY PRN PRN Reason: RX Stop: 04/30/25 09:29 Phenobarbital (Phenobarbital 32.4 Mg Tablet) 32.4 mg GT BID [facility] Stop: 04/14/25 09:44 Last Admin: 03/31/25 10:27 Dose: 32.4 mg Sennosides (Senna Tablet) 1 tab PO QDAY [facility]; Protocol Stop: 05/01/25 08:59 Topiramate (Topiramate 100 Mg Tablet) 200 mg GT BID [facility] Stop: 04/30/25 09:44 Last Admin: 03/31/25 10:57 Dose: 200 mg Discontinued Medications Acetylcysteine (Acetylcysteine Rt 10% 10 Ml Nebu) 3 ml INH X1 ONE Stop: 03/31/25 04:32 Last Admin: 03/31/25 06:23 Dose: Not Given Albuterol/Ipratropium (Albuterol/Ipratropium (Duoneb) Rt Naila 3 Ml Nebu) 3 ml INH X1 ONE Stop: 03/31/25 04:32 Last Admin: 03/31/25 06:22 Dose: 3 ml Dexamethasone Sodium Phosphate (Dexamethasone Sod Phos Inj 10 Mg/Ml Vial) 6 mg IV X1 ONE Stop: 03/31/25 05:04 Last Admin: 03/31/25 05:21 Dose: 6 mg Piperacillin/Tazobactam/Dextrose (Zosyn) 3.375 gm in 50 mls @ 100 mls/hr IV X1 ONE Stop: 03/31/25 05:02 Last Infusion: 03/31/25 06:17 Dose: Infused Doxycycline Hyclate 100 mg/ (Sodium Chloride) 100 mls @ 100 mls/hr IV X1 ONE Stop: 03/31/25 05:30 Last Infusion: 03/31/25 06:22 Dose: Infused Lactated Ringer's (Lactated Ringers) 1,000 mls @ 999 mls/hr IV .Q1H1M ONE Stop: 03/31/25 07:10 Last Infusion: 03/31/25 07:40 Dose: Infused Lactated Ringer's (Lactated Ringers) 500 mls @ 999 mls/hr IV .Q31M ONE Stop: 03/31/25 09:48 Last Admin: 03/31/25 10:40 Dose: Not Given Lactated Ringer's (Lactated Ringers) 500 mls @ 999 mls/hr IV .Q31M ONE Stop: 03/31/25 11:00 Last Infusion: 03/31/25 11:30 Dose: Infused Vancomycin/Sodium Chloride (Vancomycin/Ns 1 Gm Ivpb) 200 mls @ 120 mls/hr IV X1 ONE Stop: 03/31/25 12:09 Last Infusion: 03/31/25 12:51 Dose: Infused Methylprednisolone Sodium Succinate (Methylprednisolone Sod Succ 40 Mg Vial) 40 mg IVP X1 ONE Stop: 03/31/25 04:32 Last Admin: 03/31/25 05:07 Dose: Not Given Sodium Chloride (Sodium Chloride Rt 10% 15 Ml Nebu) 5 ml INH X1 ONE Stop: 03/31/25 04:36 Last Admin: 03/31/25 06:22 Dose: 5 ml Assessment & Plan Plan 35-year-old male with past medical history of cerebral palsy, seizures on phenobarbital and topiramate, status post PEG tube and tracheostomy, history of empyema and Pseudomonas pneumonia who was admitted on 03/31/2025 for acute hypoxic respiratory failure with sepsis secondary to COVID pneumonia and complicated by hemopytsis. Neruo: #Cerebral Palsy #Seizures resumed home medication of phenobarbital and topiramate. [facility] Stable Respiratory: #Acute hypoxic respiratory #Pneumonia, secondary to COVID #Ventilatory Associated Pneumonia #Elevated Lactic Acid, resolved. Acute hypoxic respiratory failure given patient failed out patient treatment with Levofloxacin and COVID positive, Pneumonia secondary to COVID likely source of infection. Chest x-ray showing extensive consolidations and bilateral opacities. Consider steriods. Monitor for ARDS vs Ventilator associated pneumonia can not be ruled as patient uses a blow by at home and was found spO2 of 70%. PE less likely as CTA chest negative for pulmonary artery embolism. Given extent of patient's pneumonia and adequate fluid resuscitation in ER 1.4 (L), No maintenance fluid. -Mechanical Ventilation -ABG evening, please follow up -[place] (03/31/2025--) -Consider CT chest AM& Steriods/ -Pepcid BID -Sputum Cultures -Blood culture -MRSA Screen #Hemoptysis Likely secondary to pneumonia vs deep suctioning vs less likely secondary to TB or Cocci. Cocci less likely as patient is mostly indoors. 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 GI: s/p PEG tube -consulted pearl hand to restart PEG tube feedings. -NPO for now Endo: stable Heme: stable ID: #Sepsis secondary to Pneumonia COVID #COVID Pneumonia #SIRs Tachypenic & Tachycardia w/ pneumonia, thus meeting SIRs criteria. COVID pneumonia with failed antibiotic treatment as outpatient and extensive bilateral opacities on chest x-ray with large consolidation in left upper lobe. Previous hospitalization for pneumonia showing sputum culture Pseudomonas, sensitive to most antibiotics except ciprofloxacin and cefotaxime, thus ventilator associated pneumonia can not be ruled out. Previous MRSA screen negative -Zosyn 03/31/2025 -Consider Vancomycin, but patient is MRSA Negative from previous screen and comes from home -blood cultures and sputum cultures pending Health Maintenance: Disp: Pt is currently admitted to floors for further management of sepsis secondary to ventilator associated and hemoptysis, awaiting bronchoscopy. No presors on board. FEN: NPO until pearl hand DVT: on subQ heparin Code: Full Code - The patient's plan was discussed with attending Dr. Dannie Ohara MD PGY1 Internal Medicine Attending Provider Attestation/Addendum Patient seen and examined with above resident, Liliana Ohara MD. I agree with findings, assessment, and plan of care as documented except for any differences below. Patient initially admitted to [facility] with left upper lobe pneumonia though worsening acute hypoxic respiratory failure requiring mechanical ventilation. Lung protective ventilation settings ensured. Started on empiric antibiotics given patient likely history of bronchiectasis secondary to chronic aspiration. Patient at baseline is not ventilator dependent and not requiring any oxygen though trach in place for adequate airway preservation. Patient remains hemodynamically stable, borderline blood pressure may eventually require vasopressor support. We did preemptively place central line given difficulty with peripheral access per nursing in the emergency department. Patient remains volume depleted and we did provide adequate volume for severe sepsis. Patient's mentation has been declining per patient's family. He also has significant hemoptysis suggesting robust inflammatory response to acute infection. Will complete testing with determining etiology including tracheal aspirate. Patient on appropriate coverage for MRSA and Pseudomonas with prior known history history, but may ultimately be able to narrow antibiotics based on results of testing. Patient was accompanied by his father and mother who are able to provide significant history as they are his primary caregivers. We have updated them on plan of care and they remain agreeable. Total critical care time: I personally spent 40 minutes for review of physiologic parameters, directing plan of care throughout the day, coordination of care with other specialists, and counseling patient's family at bedside. This is exclusive of time spent teaching housestaff or performing any separate billable procedures. Patient remains at significant risk for further morbidity and mortality warranting close monitoring and care only available in the intensive care unit. Patient required critical care services for acute on chronic hypoxic respiratory failure secondary to lobar pneumonia.
--- NOTE | 2025-03-31 18:18 | PC.RT ---
pt taken to CT with RN Glaire no complications, while CT RR increased to the 30s,spo2 97%, hr 111. back from CT at this time.
[2025-03-31] MEDS: BACLOFEN 10 MG TABLET 40 MG PO (21:16)
[2025-03-31] MEDS: HEPARIN SOD INJ 5000 UNIT/ML VIAL SC (21:17)
[2025-03-31] MEDS: FAMOTIDINE INJ 10 MG/ML VIAL 2 ML 20 MG IVP (21:17)
[2025-03-31] MEDS: CLORAZEPATE 3.75 MG PO (21:19)
[2025-04-01] VITALS (100 sets, daily range): BP systolic 78–112; BP diastolic 52–80; PULSE 81–117; RESP 22–45; TEMP 36.2–37.2; O2SAT 91–100; BMI 27.5
[2025-04-01 04:39] LABS: Base Excess -4 (-3-3); HCO3 21 mEq/L (20-26); Inspired Oxygen, FIO2 80 %; O2 Saturation 97 % (91-98); PCO2 35 mmHg (32.0-48.0); PO2 77 mmHg (83-108); pH, Arterial 7.38 (7.35-7.45)
[2025-04-01 04:40] LABS: Allen Test Performed/OK; Puncture Site Left Radial
[2025-04-01] MEDS: PIPER/TAZO 3.375 GM PREMIX 3.375 GM/50 ML BAG IV ×3 (05:07→21:44)
[2025-04-01 06:11] LABS: Basophils % (Auto) 0 % (0-2.5); Eosinophils % (Auto) 0 % (0-10); Hematocrit 35.1 % (41.0-53.0); Hemoglobin 12.5 g/dL (13.5-16.0); Immature Granulocytes % (Auto) 0 % (0-0); Immature Granulocytes Auto 0.02 Thou/mm3 (0.00-0.00); Lymphocytes # (Auto) 0.8 Thou/mm3 (1.0-4.8); Lymphocytes % (Auto) 16 % (10-50); Mean Corpuscular HGB Conc 35.6 g/dl (31.0-37.0); Mean Corpuscular Hemoglobin 34.6 pg (25.0-35.0); Mean Corpuscular Volume 97 fL (80-100); Monocytes # (Auto) 0.2 Thou/mm3 (0.0-0.8); Monocytes % (Auto) 5 % (0-12); Neutrophils # (Auto) 3.6 Thou/mm3 (1.8-7.7); Neutrophils % (Auto) 78 % (37-80); Nucleated Red Blood Cell % 0 /100 WBC (0); Red Blood Count 3.61 Miln/mm3 (4.50-5.90); White Blood Count 4.6 Thou/mm3 (3.8-10.6)
[2025-04-01 06:19] LABS: Platelet Count 69 Thou/mm3 (140-440)
[2025-04-01 06:51] LABS: Alanine Aminotransferase 47 U/L (10-49); Albumin, Serum 3.2 gm/dL (3.5-5.0); Albumin/Globulin Ratio 1.1 (1.2-2.2); Alkaline Phosphatase 553 U/L (46-116); Anion Gap 11 (7-16); Aspartate Amino Transferase 122 U/L (0-34); BUN/Creatinine Ratio 16 Ratio (12-20); Bilirubin,Total 0.5 mg/dL (0.3-1.2); Blood Urea Nitrogen 11 mg/dL (9-23); Calcium 8.3 mg/dL (8.3-10.6); Calcium (Corrected) 8.9 mg/dL (8.5-10.1); Carbon Dioxide 21.8 mMol/L (20.0-31.0); Chloride 112 mMol/L (98-107); Creatinine (Component) 0.7 mg/dL (0.6-1.3); Estimated Creatinine Clearance 90.4 mL/min (>60); Glucose 75 mg/dL (74-106); Magnesium 1.7 mg/dL (1.6-2.6); Osmolality,Calculated 287 (275-295); Phosphorous 2.1 mg/dL (2.4-5.1); Potassium 3.1 mMol/L (3.4-5.1); Sodium 145 mMol/L (136-145); Total Protein 6.2 gm/dL (5.7-8.2); eGFR > 60 See Note
[2025-04-01] MEDS: ALBUTEROL/IPRATROPIUM (Duoneb) RT SOL 3 ML NEBU INH ×5 (07:19→22:30)
--- NOTE | 2025-04-01 07:27 | XR_ITS ---
Examination: AP chest single view Technique: AP portable semiupright chest single view Exam date and time: April 01, 2025 0748 hours Comparison March 31, 2025 INDICATIONS: Worsening shortness of breath hypoxia today. FINDINGS: Worsening severe bilateral pneumonia Tracheostomy tube tip 5.5 cm above cordell. Right internal jugular central line tip right atrium no pneumothorax IMPRESSION: Worsening severe bilateral pneumonia
[2025-04-01] MEDS: NAPH,KPH MBDB 1 PACKET (1.5 GM) GT (08:31)
[2025-04-01] MEDS: SENNA TABLET 1 TAB PO (08:31)
[2025-04-01] MEDS: BACLOFEN 10 MG TABLET 40 MG PO ×2 (08:31→20:28)
[2025-04-01] MEDS: TOPIRAMATE 100 MG TABLET 200 MG GT ×2 (08:31→20:29)
[2025-04-01] MEDS: DOCUSATE SOD 100 MG CAPSULE PO (08:31)
[2025-04-01] MEDS: PHENobarbitaL 32.4 MG TABLET GT ×2 (08:31→20:29)
[2025-04-01] MEDS: DEXAMETHASONE SOD PHOS INJ 10 MG/ML VIAL 6 MG IV (08:32)
[2025-04-01] MEDS: FAMOTIDINE INJ 10 MG/ML VIAL 2 ML 20 MG IVP ×2 (08:32→20:28)
[2025-04-01] MEDS: POTASSIUM CHL 20 mEq IVPB 20 MEQ/100 ML BAG 50 MEQ IV ×4 (08:32→15:56)
[2025-04-01] MEDS: HEPARIN SOD INJ 5000 UNIT/ML VIAL SC ×2 (08:33→20:28)
[2025-04-01 09:12] LABS: Slide Review Platelets confirmed
--- NOTE | 2025-04-01 09:41 | ESPR_ITS ---
Documentation for date of: 04/01/25 Subjective Subjective Interval history: 35-year-old male with past medical history of cerebral palsy, seizures on phenobarbital and topiramate, status post PEG tube and tracheostomy, history of empyema and Pseudomonas pneumonia, who presented to the ED with tachypnea and desaturation around 70%. Per the caregiver symptom onset around a week ago with associated congestion and cough with pinkish phlegm as well as fever and chills. Patient is admitted for Acute hypoxic respiratory failure secondary to Ventilator associated pneumonia + Covid pneumonia. ED course: ED vitals: BP 106 64, HR 97, RR 22, temp 97.1 ?F, O2 saturation 71%. ED labs: Thrombocytopenia, ABG with pH 7.39, with low PO2, CHEM panel mostly unremarkable aside from elevated liver enzymes and alk phos, procalcitonin 2.06, lactic acid 5.3. ED Dx: Chest x-ray shows significant bilateral pneumonia patient was found to also be positive for COVID-19. ED treatment: Zosyn, dexamethasone, doxycycline, DuoNebs, 1 L IVF's 03/31/2025 ICU consulted for sepsis, secondary COVID pneumonia complicated with hemoptysis and acute hypoxic respiratory failure requiring mechanical ventilation via tracheostomy. 04/01/2025: Patient test positive for COVID and started on Dexamethasone 6 mg Qday for the next 10 days and Remdesivir 250 mg X 1 first dose today, followed by 100 mg IV starting tomorrow. Morning chest x-ray noted for left lober pneumonia, resumed antibiotics. Holding off any food feedings. Confirmed with family, at home patichitra was not using a by blow. Exam Vital Signs Temp Pulse Resp BP Pulse Ox O2 Del Method O2 Flow Rate 97.6 F 116 H 28 H 102/59 L 95 Mechanical Ventilation 30 04/01/25 04:00 04/01/25 07:20 04/01/25 07:20 04/01/25 07:20 04/01/25 07:20 03/31/25 18:22 03/31/25 06:16 FiO2 50 04/01/25 07:20 Narrative Exam General Appearance: Alert & Oriented X0, small male who is bed bound with contracture of lower extremities. HEENT: Skull asymmetrical and atraumatic. Conjunctivae pink and moist. Diminished pupil reaction to light accommodation . External ear without lesion or discharge. Cardio: Normal Rate and Rhythm with S1 and S2 heart sounds. No murmurs or extra heart sounds auscultated. No bruits on carotid auscultation. No peripheral edema or cyanosis. Lungs: Symmetric with reduced expansion. Decreased vesicular breath sounds with rhonchi Abdomen: Non-tender, Non-distended, Normal Reactive Bowel Sounds Neuro: No Alert, NO cooperative, NO oriented to person, No place, and No time. Speech clear. CN grossly intact. Upper motor strength 0/5 and Lower motor strength 0/5. Objective Labs 04/02/25 05:05 04/02/25 05:05 Labs: Laboratory Results - last 24 hr 03/31/25 03/31/25 04/01/25 05:20 12:21 04:20 WBC RBC Hgb Hct MCV MCH MCHC RDW Std Deviation Plt Count Neut % (Auto) Lymph % (Auto) [place] % (Auto) Eos % (Auto) Baso % (Auto) Neut # (Auto) Lymph # (Auto) [place] # (Auto) Eos # (Auto) Baso # (Auto) Immature Gran # (Auto) Absolute Nucleated RBC Immature Gran % Nucleated RBC % Puncture Site Left Radial ABG pH 7.38 ABG pCO2 35 ABG pO2 77 L ABG HCO3 21 ABG O2 Saturation 97 ABG Base Excess -4 L FiO2 80 Sodium Potassium Chloride Carbon Dioxide Anion Gap BUN Creatinine Estim Creat Clear Calc eGFR BUN/Creatinine Ratio Glucose Calculated Osmolality Lactic Acid 0.8 Calcium Corrected Calcium Phosphorus Magnesium Total Bilirubin AST ALT Alkaline Phosphatase Total Protein Albumin Globulin Albumin/Globulin Ratio Coccidioides IgM Ab Negative Misc Test Result 04/01/25 05:20 WBC 4.6 RBC 3.61 L Hgb 12.5 L D Hct 35.1 L MCV 97 MCH 34.6 MCHC 35.6 RDW Std Deviation 52.0 H Plt Count 69 L Neut % (Auto) 78 Lymph % (Auto) 16 Navarro % (Auto) 5 Eos % (Auto) 0 Baso % (Auto) 0 Neut # (Auto) 3.6 Lymph # (Auto) 0.8 L [place] # (Auto) 0.2 Eos # (Auto) 0.0 Baso # (Auto) 0.0 Immature Gran # (Auto) 0.02 H Absolute Nucleated RBC 0.00 Immature Gran % 0 Nucleated RBC % 0 Puncture Site ABG pH ABG pCO2 ABG pO2 ABG HCO3 ABG O2 Saturation ABG Base Excess FiO2 Sodium 145 Potassium 3.1 L D Chloride 112 H Carbon Dioxide 21.8 Anion Gap 11 BUN 11 Creatinine 0.7 Estim Creat Clear Calc 90.4 eGFR > 60 BUN/Creatinine Ratio 16 Glucose 75 Calculated Osmolality 287 Lactic Acid Calcium 8.3 Corrected Calcium 8.9 Phosphorus 2.1 L Magnesium 1.7 Total Bilirubin 0.5 AST 122 H ALT 47 Alkaline Phosphatase 553 H D Total Protein 6.2 Albumin 3.2 L D Globulin 3.0 Albumin/Globulin Ratio 1.1 L Coccidioides IgM Ab Misc Test Result Platelets confirmed ABG Interpretation ABG results: 03/31/25 04/01/25 05:25 04:20 ABG pH 7.39 7.38 ABG pCO2 35 35 ABG pO2 59 L* 77 L ABG HCO3 21 21 ABG O2 Saturation 93 97 ABG Base Excess -3 -4 L Quality Measures Quality Measures none Assessment & Plan Assessment Current Active Medications: Generic Name Dose Route Start Last Admin Trade Name Freq PRN Reason Stop Dose Admin Acetaminophen 650 mg 03/31/25 09:08 03/31/25 10:57 Acetaminophen 325 Mg Tablet PO 04/30/25 09:07 650 mg Q6H PRN Administration Fever >101.5 Acetaminophen 650 mg 03/31/25 09:14 Acetaminophen 325 Mg Tablet PO 04/30/25 09:13 Q6H PRN PAIN SCALE 1-3 (mild Albuterol/Ipratropium 3 ml 03/31/25 11:00 04/01/25 07:19 Albuterol/Ipratropium (Duoneb) Rt Naila 3 Ml Nebu INH 04/30/25 10:59 3 ml Q4HRRT KATEY Administration Baclofen 40 mg 03/31/25 21:00 04/01/25 08:31 Baclofen 10 Mg Tablet PO 04/30/25 20:59 40 mg BID KATEY Administration Protocol Baclofen 30 mg 04/01/25 15:00 Baclofen 10 Mg Tablet PO 05/01/25 14:59 1500 KATEY Clorazepate 3.75 Mg 0 ea 03/31/25 21:00 03/31/25 21:19 Tablet PO 04/30/25 20:59 1 tablet BID KATEY Administration Dexamethasone Sodium Phosphate 6 mg 04/01/25 09:00 04/01/25 08:32 Dexamethasone Sod Phos Inj 10 Mg/Ml Vial IV 04/09/25 08:59 6 mg QDAY KATEY Administration Docusate Sodium 100 mg 04/01/25 09:00 04/01/25 08:31 Docusate Sod 100 Mg Capsule PO 05/01/25 08:59 100 mg QDAY KATEY Administration Protocol Famotidine 20 mg 03/31/25 21:00 04/01/25 08:32 Famotidine Inj 10 Mg/Ml Vial 2 Ml IVP 04/30/25 20:59 20 mg BID KATEY Administration Fentanyl Citrate 25 mcg 03/31/25 07:59 Fentanyl Cit Inj 50 Mcg/Ml Amp 2ml IVP 04/05/25 07:58 Q4H PRN AGITATION Protocol Heparin Sodium (Porcine) 5,000 unit 03/31/25 21:00 04/01/25 08:33 Heparin Sod Inj 5000 Unit/Ml Vial SC 04/14/25 20:59 5,000 unit BID KATEY Administration Potassium Chloride 20 meq in 100 mls @ 50 mls/hr 04/01/25 07:24 04/01/25 08:32 Kcl Ivpb IV 04/01/25 11:23 50 mls/hr Q2H KATEY Administration Potassium Chloride 20 meq in 100 mls @ 50 mls/hr 04/01/25 11:30 Kcl Ivpb IV 04/01/25 15:29 Q2H KATEY Vancomycin/Sodium Chloride 200 mls @ 120 mls/hr 04/01/25 10:00 Vancomycin/Ns 1 Gm Ivpb IV 04/08/25 09:59 BID@1000,2200 KATEY Protocol Piperacillin/Tazobactam/Dextrose 3.375 gm in 50 mls @ 12.5 mls/hr 04/01/25 14:00 Zosyn IV 04/08/25 13:59 Q8HR KATEY Lorazepam 1 mg 03/31/25 07:59 03/31/25 13:05 Lorazepam 2 Mg/Ml Vial IVP 04/05/25 07:59 1 mg Q6H PRN Administration AGITATION Protocol Ondansetron HCl 4 mg 03/31/25 09:14 Ondansetron Inj 2 Mg/Ml Inj 2 Ml IV 04/30/25 09:13 Q6H PRN NAUSEA OR VOMITING Protocol Pharmacy Consult 1 each 03/31/25 09:30 Vancomycin Pharmacy To Dose 1 Each Each IV 04/30/25 09:29 QDAY PRN RX Pharmacy Consult 1 each 03/31/25 20:46 Pharmacy To Consult Patient XX 04/30/25 20:45 PRN PRN CONSULT Phenobarbital 32.4 mg 03/31/25 09:45 04/01/25 08:31 Phenobarbital 32.4 Mg Tablet GT 04/14/25 09:44 32.4 mg BID KATEY Administration Sennosides 1 tab 04/01/25 09:00 04/01/25 08:31 Senna Tablet PO 05/01/25 08:59 1 tab QDAY KATEY Administration Protocol Topiramate 200 mg 03/31/25 09:45 04/01/25 08:31 Topiramate 100 Mg Tablet GT 04/30/25 09:44 200 mg BID KATEY Administration Plan 35-year-old male with past medical history of cerebral palsy, seizures on phenobarbital and topiramate, status post PEG tube and tracheostomy, history of empyema and Pseudomonas pneumonia who was admitted on 03/31/2025 for acute hypoxic respiratory failure with sepsis secondary to COVID pneumonia and complicated by hemopytsis. Neruo: #Cerebral Palsy #Seizures resumed home medication of phenobarbital, topiramate, and Clorazepate [facility] Stable Respiratory: #Acute hypoxic respiratory #Pneumonia, secondary to COVID #Left Lobar CAP #Elevated Lactic Acid, resolved. Acute hypoxic respiratory failure given patient failed out patient treatment with Levofloxacin and COVID positive, Pneumonia secondary to COVID likely source of infection. Although superimposed bacterial pneumonia infection less common in COVID, worsening chest x-ray showing extensive consolidations w/ airbronchograms, continue antibiotics. Given extent of patient's pneumonia and adequate fluid resuscitation in ER 1.4 (L), No maintenance fluid. -Mechanical Ventilation -Zosyn & Vancomycin (03/31/2025--) -Dexamethasone 6 mg Qday & Remdesivir 200 mg IV X 1 (loading dose) -Chest X-rays & ABGs -Sputum Cultures Preliminary GNR -Blood culture -MRSA Screen #Hemoptysis, resolved. Likely secondary to pneumonia vs deep suctioning vs less likely secondary to TB or Cocci. Cocci less likely as patient is mostly indoors. 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 GI: s/p PEG tube Keep patient NPO. Hold off restarting PEG tube feedings. Endo: stable Heme: stable ID: #Sepsis Secondary to Pneumonia COVID #ARDS #COVID Pneumonia, GNR + #Left Lobar, CAP #SIRs COVID pnuemonia showing diffuse bilateral opacities on chest x-ray with P/F ratio of 92.25, thus moderate ARDS pattern. Superimosed bacterial pneumonia less frequent pattern noted with COVID, but given worsening chest x-ray noted to have lobar pneumonia with air bronchograms, superimposed CAP likely. Patient no longer using by blow at home for several months now. Preliminary sputum culture growing GNR, penidng finl cultrue results. Day one of Remdesivir 200 mg X 1 and Dexamethasone 6 mg Day one. Previous MRSA negative. Previous sputum culture in 2023, positive for Pseudomonas. -Zosyn 03/31/2025 & Vancomycin (03/31/2025) -blood cultures negative after 24 hours -Sputum Culture GNR -Remdesivir 200 mg X 1 -Dexamethasone 6 mg day 1 (04/01/2025-04/11/2025) Health Maintenance: Disp: Pt is currently admitted to floors for further management of sepsis secondary to ventilator associated and hemoptysis, awaiting improved ARDS pattern FEN: NPO, Pepcid BID DVT: on subQ heparin Code: Full Code - The patient's plan was discussed with attending Dr. Dannie Ohara MD PGY1 Internal Medicine Attending Provider Attestation/Addendum Patient seen and examined with above resident, Liliana Ohara MD. I agree with the findings, assessment, and plan of care as documented except for any differences below. Patient remains stable on lung protective ventilator settings. Gas exchange seems to have declined with further worsening of the consolidation of the left upper lobe significantly involving the lingula. There is presence of air bronchograms though there is a component of volume loss given the left hemidiaphragm is slightly elevated. Patient with significant component of bronchiectasis likely due to chronic aspiration. He is chronically trach dependent though he does not require mechanical ventilation or noninvasive support typically. Testing did return overnight positive for COVID, remdesivir and dexamethasone have been initiated. This will be appropriate for community- acquired pneumonia as well. We did adjust antibiotics to ensure adequate coverage for opportunistic infections such as Pseudomonas given the structural lung disease. Patient's hemoptysis seems to have improved with the initiation of the antibiotics but likely has a long road to recovery given limited pulmonary function as well as the severity of illness and inflammatory state within the lung. Fortunately remains hemodynamically stable without evidence of septic shock. Patient's family was at bedside throughout the day and updated on plan of care and remained agreeable. Patient remains on appropriate prophylaxis. Will hold off on initiation of tube feeds at this point given evolving respiratory status. Total critical care time: I personally spent 40 minutes for review of physiologic parameters, directing plan of care throughout today, and counseling patient and family at bedside. This is exclusive of time spent teaching housestaff performing any separate billable procedures. Patient remains at significant risk for further morbidity and mortality with acute on chronic hypoxic respiratory failure secondary to lobar pneumonia/exacerbation of bronchiectasis and severe sepsis.
[2025-04-01] MEDS: REMDESIVIR INJ 200 MG in SODIUM CHLORIDE 0.9% 250 ML 250 ML 250 MG IV (10:28)
--- NOTE | 2025-04-01 11:03 | PC.DIETICIAN ---
Nutrition prescription When indicated, consider: Glucerna 1.2 at 15 ml/hr via PEG tube by pump. Advance 10 ml every 8 hrs to goal rate of 35 ml/hr x 24 hrs. If no IV fluids, water flushes of 30 ml/hr (or per MD).
[2025-04-01] MEDS: CLORAZEPATE 3.75 MG PO ×2 (11:05→20:29)
[2025-04-01] MEDS: VANCOMYCIN/NS 1 GM IVPB 200 ML IV ×2 (12:53→21:43)
--- NOTE | 2025-04-01 13:51 | PC.SS ---
Update: Patient in possession of trach. On mechanical ventilator. Patient possesses PEG tube. Patient is not receiving pressors. Obtaining IV antibiotics. Central line has been placed. Patient is Covid (+).
[2025-04-01] MEDS: BACLOFEN 10 MG TABLET 30 MG PO (15:56)
[2025-04-02] VITALS (104 sets, daily range): BP systolic 72–123; BP diastolic 43–78; PULSE 80–124; RESP 1–47; TEMP 36.1–36.7; O2SAT 88–97
[2025-04-02] MEDS: ALBUTEROL/IPRATROPIUM (Duoneb) RT SOL 3 ML NEBU INH ×6 (03:00→23:00)
[2025-04-02 03:40] LABS: Base Excess -7 (-3-3); HCO3 19 mEq/L (20-26); Inspired Oxygen, FIO2 21 %; O2 Saturation 89 % (91-98); PCO2 39 mmHg (32.0-48.0); pH, Arterial 7.29 (7.35-7.45)
[2025-04-02 03:43] LABS: Allen Test Performed/OK; PO2 56 mmHg (83-108); Puncture Site Right Radial
[2025-04-02] MEDS: PIPER/TAZO 3.375 GM PREMIX 3.375 GM/50 ML BAG IV ×3 (05:01→20:59)
--- NOTE | 2025-04-02 06:00 | XR_ITS ---
Examination: AP chest single view TECHNIQUE: AP portable semiupright chest single view Examination triangle April 02, 2025 0546 hours Comparison April 01, 2025 INDICATIONS: Pneumonia ARDS pattern on earlier imaging this week. FINDINGS: Severe bilateral lung opacity again noted Right internal jugular central line tip right atrium Tracheostomy tube tip 3.4 cm above Claudine Normal heart size No pneumothorax Mild osteopenia IMPRESSION: No significant change in severe pneumonia ARDS pattern
[2025-04-02 06:23] LABS: Basophils % (Auto) 0 % (0-2.5); Eosinophils % (Auto) 0 % (0-10); Hematocrit 35.9 % (41.0-53.0); Hemoglobin 12.3 g/dL (13.5-16.0); Immature Granulocytes % (Auto) 0 % (0-0); Immature Granulocytes Auto 0.03 Thou/mm3 (0.00-0.00); Lymphocytes # (Auto) 0.5 Thou/mm3 (1.0-4.8); Lymphocytes % (Auto) 6 % (10-50); Mean Corpuscular HGB Conc 34.3 g/dl (31.0-37.0); Mean Corpuscular Hemoglobin 34.5 pg (25.0-35.0); Mean Corpuscular Volume 101 fL (80-100); Monocytes # (Auto) 0.5 Thou/mm3 (0.0-0.8); Monocytes % (Auto) 5 % (0-12); Neutrophils # (Auto) 7.5 Thou/mm3 (1.8-7.7); Neutrophils % (Auto) 88 % (37-80); Nucleated Red Blood Cell % 0 /100 WBC (0); Platelet Count 84 Thou/mm3 (140-440); Red Blood Count 3.57 Miln/mm3 (4.50-5.90); White Blood Count 8.5 Thou/mm3 (3.8-10.6)
[2025-04-02 07:17] LABS: Alanine Aminotransferase 41 U/L (10-49); Alkaline Phosphatase 402 U/L (46-116); Anion Gap 9 (7-16); Aspartate Amino Transferase 109 U/L (0-34); BUN/Creatinine Ratio 20 Ratio (12-20); Bilirubin,Total 0.7 mg/dL (0.3-1.2); Blood Urea Nitrogen 12 mg/dL (9-23); Calcium 8.3 mg/dL (8.3-10.6); Calcium (Corrected) 9.1 mg/dL (8.5-10.1); Chloride 117 mMol/L (98-107); Creatinine (Component) 0.6 mg/dL (0.6-1.3); Estimated Creatinine Clearance 105.8 mL/min (>60); Globulin 2.9 gm/dL (2.3-3.5); Glucose 63 mg/dL (74-106); Magnesium 1.8 mg/dL (1.6-2.6); Osmolality,Calculated 288 (275-295); Phosphorous 2.1 mg/dL (2.4-5.1); Potassium 3.5 mMol/L (3.4-5.1); Sodium 146 mMol/L (136-145); Total Protein 5.9 gm/dL (5.7-8.2); eGFR > 60 See Note
[2025-04-02] MEDS: DOCUSATE SOD LIQD 100 MG/10 ML UDC GT (08:17)
[2025-04-02] MEDS: BACLOFEN 10 MG TABLET 40 MG PO (08:17)
[2025-04-02] MEDS: HEPARIN SOD INJ 5000 UNIT/ML VIAL SC ×2 (08:18→21:00)
[2025-04-02] MEDS: FAMOTIDINE INJ 10 MG/ML VIAL 2 ML 20 MG IVP ×2 (08:18→20:57)
[2025-04-02] MEDS: DEXAMETHASONE SOD PHOS INJ 10 MG/ML VIAL 6 MG IV (08:18)
[2025-04-02] MEDS: POTASSIUM CHL 20 mEq IVPB 20 MEQ/100 ML BAG 50 MEQ IV ×2 (08:18→10:20)
[2025-04-02] MEDS: fentaNYL 2,500 MCG/250 ML BAG 2,500 MCG/250 ML BAG IV (08:18)
[2025-04-02] MEDS: PROPOFOL 1,000 MG IVPB 1,000 MG/100 ML VIAL 1.332 MG IV (08:30)
[2025-04-02] MEDS: SENNA TABLET 1 TAB PO (08:33)
[2025-04-02] MEDS: TOPIRAMATE 100 MG TABLET 200 MG GT (08:33)
[2025-04-02] MEDS: PHENobarbitaL 32.4 MG TABLET GT (08:33)
--- NOTE | 2025-04-02 08:44 | XR_ITS ---
Examination: AP chest single view TECHNIQUE: Portable semiupright AP chest single view Exam date and time: April 02, 2025 0858 hours Comparison April 02, 2025 0546 hours INDICATIONS: Worsening shortness of breath FINDINGS: Severe bilateral lung opacity Right internal jugular central line tip SVC satisfactory position Tracheostomy tube tip 3.6 cm above cordell IMPRESSION: Again noted severe bilateral pneumonia ARDS pattern
[2025-04-02] MEDS: Norepinephrine/NS 16mg/250ml 16 MG/250 ML BAG 2.081 MG IV (09:22)
[2025-04-02] MEDS: FUROSEMIDE INJ 10 MG/ML VIAL 2 ML 20 MG IVP (09:43)
--- NOTE | 2025-04-02 10:19 | PD.RESPRO ---
Documentation for date of: 04/02/25 Subjective Subjective Interval history: 35-year-old male with past medical history of cerebral palsy, seizures on phenobarbital and topiramate, status post PEG tube and tracheostomy, history of empyema and Pseudomonas pneumonia, who presented to the ED with tachypnea and desaturation around 70%. Per the caregiver symptom onset around a week ago with associated congestion and cough with pinkish phlegm as well as fever and chills. Patient is admitted for Acute hypoxic respiratory failure secondary to Ventilator associated pneumonia + Covid pneumonia. ED course: ED vitals: BP 106 64, HR 97, RR 22, temp 97.1 ?F, O2 saturation 71%. ED labs: Thrombocytopenia, ABG with pH 7.39, with low PO2, CHEM panel mostly unremarkable aside from elevated liver enzymes and alk phos, procalcitonin 2.06, lactic acid 5.3. ED Dx: Chest x-ray shows significant bilateral pneumonia patient was found to also be positive for COVID-19. ED treatment: Zosyn, dexamethasone, doxycycline, DuoNebs, 1 L IVF's 03/31/2025 ICU consulted for sepsis, secondary COVID pneumonia complicated with hemoptysis and acute hypoxic respiratory failure requiring mechanical ventilation via tracheostomy. 04/01/2025: Patient test positive for COVID and started on Dexamethasone 6 mg Qday for the next 10 days and Remdesivir 250 mg X 1 first dose today, followed by 100 mg IV starting tomorrow. Morning chest x-ray noted for left lober pneumonia, resumed antibiotics. Holding off any food feedings. Confirmed with family, at home amber was not using a by blow. 04/02/2025: No overnight events. Amber examined at bedside and continues to have diffuse rhonchi. Patient desating to spO2 of 88%. Amber noted to not be in sync with ventilator. Patient started on Fenantly and Propofol drip. Versed 2 mg X1 given. D/C Vancomycin as Blood culture negative and urine culture negative. Exam Vital Signs Temp Pulse Resp BP Pulse Ox O2 Del Method O2 Flow Rate 97.9 F 99 34 H 88/61 L 95 Mechanical Ventilation 30 04/02/25 08:00 04/02/25 10:15 04/02/25 10:15 04/02/25 10:15 04/02/25 10:15 04/02/25 08:00 03/31/25 06:16 FiO2 70 04/02/25 08:00 Narrative Exam General Appearance: Alert & Oriented X0, small male who is bed bound with contracture of lower extremities. HEENT: Skull asymmetrical and atraumatic. Conjunctivae pink and moist. Diminished pupil reaction to light accommodation . External ear without lesion or discharge. Cardio: Normal Rate and Rhythm with S1 and S2 heart sounds. No murmurs or extra heart sounds auscultated. No bruits on carotid auscultation. No peripheral edema or cyanosis. Lungs: Symmetric with reduced expansion. Decreased vesicular breath sounds with rhonchi Abdomen: Non-tender, Non-distended, Normal Reactive Bowel Sounds Neuro: No Alert, NO cooperative, NO oriented to person, No place, and No time. Speech clear. CN grossly intact. Upper motor strength 0/5 and Lower motor strength 0/5. Objective Labs 04/03/25 04:40 04/03/25 04:40 Labs: Laboratory Results - last 24 hr 04/02/25 04/02/25 03:30 05:05 WBC 8.5 D RBC 3.57 L Hgb 12.3 L Hct 35.9 L MCV 101 H MCH 34.5 MCHC 34.3 RDW Std Deviation 55.0 H Plt Count 84 L D Neut % (Auto) 88 H Lymph % (Auto) 6 L [place] % (Auto) 5 Eos % (Auto) 0 Baso % (Auto) 0 Neut # (Auto) 7.5 Lymph # (Auto) 0.5 L [place] # (Auto) 0.5 Eos # (Auto) 0.0 Baso # (Auto) 0.0 Immature Gran # (Auto) 0.03 H Absolute Nucleated RBC 0.00 Immature Gran % 0 Nucleated RBC % 0 Puncture Site Right Radial ABG pH 7.29 L ABG pCO2 39 ABG pO2 56 L* D ABG HCO3 19 L ABG O2 Saturation 89 L ABG Base Excess -7 L FiO2 21 Sodium 146 H Potassium 3.5 Chloride 117 H Carbon Dioxide 20.0 Anion Gap 9 BUN 12 Creatinine 0.6 Estim Creat Clear Calc 105.8 eGFR > 60 BUN/Creatinine Ratio 20 Glucose 63 L Calculated Osmolality 288 Calcium 8.3 Corrected Calcium 9.1 Phosphorus 2.1 L Magnesium 1.8 Total Bilirubin 0.7 AST 109 H ALT 41 Alkaline Phosphatase 402 H D Total Protein 5.9 Albumin 3.0 L Globulin 2.9 Albumin/Globulin Ratio 1.0 L ABG Interpretation ABG results: 03/31/25 04/01/25 04/02/25 05: 04:20 03:30 ABG pH 7.39 7.38 7.29 L ABG pCO2 35 35 39 ABG pO2 59 L* 77 L 56 L* D ABG HCO3 21 21 19 L ABG O2 Saturation 93 97 89 L ABG Base Excess -3 -4 L -7 L Quality Measures Quality Measures none Assessment & Plan Assessment Current Active Medications: Generic Name Dose Route Start Last Admin Trade Name Freq PRN Reason Stop Dose Admin Acetaminophen 650 mg 03/31/25 09:08 03/31/25 10:57 Acetaminophen 325 Mg Tablet PO 04/30/25 09:07 650 mg Q6H PRN Administration Fever >101.5 Acetaminophen 650 mg 03/31/25 09:14 Acetaminophen 325 Mg Tablet PO 04/30/25 09:13 Q6H PRN PAIN SCALE 1-3 (mild Albuterol/Ipratropium 3 ml 03/31/25 11:00 04/02/25 08:12 Albuterol/Ipratropium (Duoneb) Rt Naila 3 Ml Nebu INH 04/30/25 10:59 Not Given Q4HRRT KATEY Baclofen 40 mg 03/31/25 21:00 04/02/25 08:17 Baclofen 10 Mg Tablet PO 04/30/25 20:59 40 mg BID KATEY Administration Protocol Baclofen 30 mg 04/01/25 15:00 04/01/25 15:56 Baclofen 10 Mg Tablet PO 05/01/25 14:59 30 mg 1500 KATEY Administration Clorazepate 3.75 Mg 0 ea 03/31/25 21:00 04/01/25 20:29 Tablet PO 04/30/25 20:59 1 tablet BID KATEY Administration Dexamethasone Sodium Phosphate 6 mg 04/01/25 09:00 04/02/25 08:18 Dexamethasone Sod Phos Inj 10 Mg/Ml Vial IV 04/09/25 08:59 6 mg QDAY KATEY Administration Docusate Sodium 100 mg 04/02/25 09:00 04/02/25 08:17 Docusate Sod Liqd 100 Mg/10 Ml Udc GT 05/01/25 08:59 100 mg QDAY KATEY Administration Protocol Famotidine 20 mg 03/31/25 21:00 04/02/25 08:18 Famotidine Inj 10 Mg/Ml Vial 2 Ml IVP 04/30/25 20:59 20 mg BID KATEY Administration Fentanyl Citrate 25 mcg 03/31/25 07:59 Fentanyl Cit Inj 50 Mcg/Ml Amp 2ml IVP 04/05/25 07:58 Q4H PRN AGITATION Protocol Heparin Sodium (Porcine) 5,000 unit 03/31/25 21:00 04/02/25 08:18 Heparin Sod Inj 5000 Unit/Ml Vial SC 04/14/25 20:59 5,000 unit BID KATEY Administration Piperacillin/Tazobactam/Dextrose 3.375 gm in 50 mls @ 12.5 mls/hr 04/01/25 14:00 04/02/25 05:01 Zosyn IV 04/08/25 13:59 12.5 mls/hr Q8HR KATEY Administration Potassium Chloride 20 meq in 100 mls @ 50 mls/hr 04/02/25 07:48 04/02/25 08:18 Kcl Ivpb IV 04/02/25 11:47 50 mls/hr Q2H KATEY Administration Fentanyl Citrate 2,500 mcg in 250 mls @ 2.5 mls/hr 04/02/25 08:07 04/02/25 09:00 Sublimaze Inj 2,500 Mcg/250 Ml Bag IV 04/07/25 08:06 75 mcg/hr .Q24H PRN 7.5 mls/hr PER PROTOCOL Titration Protocol 25 MCG/HR Remdesivir 100 mg/ Sodium 100 mls @ 100 mls/hr 04/02/25 14:00 Chloride IV 04/05/25 14:59 Q24H NR Protocol Propofol 1,000 mg in 100 mls @ 1.332 mls/hr 04/02/25 08:22 04/02/25 09:10 Diprivan Ivpb IV 05/02/25 08:21 20 mcg/kg/min .Q24H PRN 5.328 mls/hr PER PROTOCOL Titration Protocol 5 MCG/KG/MIN Norepinephrine Bitartrate 16 mg in 250 mls @ 2.081 mls/hr 04/02/25 09:16 04/02/25 09:22 Levophed In Ns 16mg/250ml IV 05/02/25 09:15 0.05 mcg/kg/min .Q24H PRN 2.081 mls/hr PER protocol Administration Protocol 0.05 MCG/KG/MIN Lorazepam 1 mg 03/31/25 07:59 03/31/25 13:05 Lorazepam 2 Mg/Ml Vial IVP 04/05/25 07:59 1 mg Q6H PRN Administration AGITATION Protocol Ondansetron HCl 4 mg 03/31/25 09:14 Ondansetron Inj 2 Mg/Ml Inj 2 Ml IV 04/30/25 09:13 Q6H PRN NAUSEA OR VOMITING Protocol Pharmacy Consult 1 each 03/31/25 20:46 Pharmacy To Consult Patient XX 04/30/25 20:45 PRN PRN CONSULT Phenobarbital 32.4 mg 03/31/25 09:45 04/02/25 08:33 Phenobarbital 32.4 Mg Tablet GT 04/14/25 09:44 32.4 mg BID KATEY Administration Sennosides 1 tab 04/01/25 09:00 04/02/25 08:33 Senna Tablet PO 05/01/25 08:59 1 tab QDAY KATEY Administration Protocol Topiramate 200 mg 03/31/25 09:45 04/02/25 08:33 Topiramate 100 Mg Tablet GT 04/30/25 09:44 200 mg BID KATEY Administration Plan #Cerebral Palsy #Seizures HOLD home medication of phenobarbital, topiramate, and Clorazepate -holding home medication as patient was started on propofol and fenatly [facility] Stable Respiratory: #Acute hypoxic respiratory #Pneumonia, secondary to COVID #ARDS #Left Lobar CAP #Elevated Lactic Acid, resolved. #Respiratory Acidosis Acute hypoxic respiratory failure given patient failed out patient treatment with Levofloxacin and COVID positive, Pneumonia secondary to COVID likely source of infection. Although superimposed bacterial pneumonia infection less common in COVID, worsening chest x-ray showing extensive consolidations w/ airbronchograms, continue antibiotics. Given extent of patient's pneumonia and adequate fluid resuscitation in ER 1.4 (L) Vancomycin stopped on 04/02/2025 as blood culture negative. Sputum cutlure positive for pseudomonas aeruginosa sensitive to Zosyn, continue. ABG noted to have respiratory acidosis secondary to elevated CO2. Adjusted Tidal Volume, repeat ABG. -Mechanical Ventilation -Fentanyl 30, Propofol 13.3, Levophed 5.4 -Zosyn (03/31/2025--) -Dexamethasone 6 mg Qday 04/01/2025-04/09/2025 -Chest X-rays & ABGs #Hemoptysis, resolved. Likely secondary to pneumonia vs deep suctioning vs less likely secondary to TB or Cocci. Cocci Negative. 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 GI: s/p PEG tube Resume tube feedings Bedside glucose checks. Endo: stable Heme: stable ID: #Sepsis Secondary to Pneumonia COVID #ARDS #COVID Pneumonia, Pseudomonas #Left Lobar, CAP #SIRs COVID pnuemonia showing diffuse bilateral opacities on chest x-ray with P/F ratio of 92.25, thus moderate ARDS pattern. Superimosed bacterial pneumonia less frequent pattern noted with COVID, but given worsening chest x-ray noted to have lobar pneumonia with air bronchograms, superimposed CAP likely. Patient no longer using by blow at home for several months now. Preliminary sputum culture growing GNR, penidng finl cultrue results. Day one of Remdesivir 200 mg X 1 and Dexamethasone 6 mg Day one. Previous MRSA negative. Previous sputum culture in 2023, positive for Pseudomonas. -Zosyn 03/31/2025 & Vancomycin (03/31/2025) -Remdesivir 200 mg X 1 -Dexamethasone 6 mg day 1 (04/01/2025-04/11/2025) -Lasix 20 mg IV push x1 -blood cultures negative after 48 hours Health Maintenance: Disp: Pt is currently admitted to floors for further management of sepsis secondary to ventilator associated and hemoptysis, awaiting improved ARDS pattern FEN: Resume PEG tube feeding, Pepcid BID DVT: on subQ heparin Drips: Fentanyl 30, Propofol 13.3, Levophed 5.4 drips. Code: Full Code - The patient's plan was discussed with attending Dr. Dannie Ohara MD Attending Provider Attestation/Addendum Patient seen and examined with above resident, Liliana Ohara MD. I agree with the findings, assessment, and plan of care as documented except for any differences below. Patient with significant decline in gas exchange as evidenced by reduction in PF ratio. Patient with extensive left-sided upper lobe pneumonia. Despite conservative fluid management and appropriate antibiotic regimen with declining WBC and afebrile state. Patient continues to have poor gas exchange and we will try to optimize position. Unfortunately cannot proning and thus we have for control of intrapulmonary pressures decided to use Nimbex. Patient responded well with reduction of plateau to goal of less than 30. PEEP optimized along with adjustments in tidal volume with tolerance for permissive hypercapnia. Significant respiratory acidosis may be limited in this patient's ability to recover at this point. Will trial trickle feeds as well. Avoid full tube feeds as this will increase metabolic demand. Patient with borderline hypoglycemia that this should improve with some level of nutrition. Patient will remain paralyzed for the next 24 hours and we will reassess ability to wean off. We have placed the patient in the high lateral position as an alternative to proning but we will need to be close monitoring for breakdown of skin given his body habitus. Patient's family is aware of guarded prognosis. Will hold off on bronchoscopy at this point as this may be more harmful than beneficial though mucous plugging may be the cause of today's decline but on what level is yet to be determined.. Chest physiotherapy to avoid risk of pneumothorax secondary to barotrauma. Patient growing Pseudomonas and on appropriate antibiotic regimen. Total critical care time: I personally spent 45 minutes for review of physiologic parameters, directing plan of care throughout the day including frequent adjustments and mechanical ventilation, and counseling patient's family extensively at bedside. This is exclusive of time spent teaching housestaff or performing any separate billable procedures. Patient remains at significant risk for further morbidity and mortality warranting close monitoring and care only available in the intensive care unit. Patient receiving critical care services for acute on chronic hypoxic respiratory failure secondary to lobar pneumonia/ARDS.
[2025-04-02 10:24] LABS: Base Excess -9 (-3-3); HCO3 19 mEq/L (20-26); Inspired Oxygen, FIO2 70 %; O2 Saturation 95 % (91-98); PCO2 44 mmHg (32.0-48.0); PO2 74 mmHg (83-108); pH, Arterial 7.24 (7.35-7.45)
[2025-04-02 10:29] LABS: Allen Test Performed/OK; Puncture Site Left Radial
[2025-04-02] MEDS: NAPH,KPH MBDB 1 PACKET (1.5 GM) GT (10:31)
[2025-04-02] MEDS: CLORAZEPATE 3.75 MG PO ×2 (10:31→20:59)
[2025-04-02] MEDS: MIDAZOLAM INJ 1 MG/ML VIAL 2 ML 2 MG IV (11:37)
[2025-04-02] MEDS: ROCURONIUM INJ 10 MG/ML VIAL 10 ML 26 MG IVP (12:10)
[2025-04-02 13:06] LABS: Cocci Serology, IgG Negative (Negative)
[2025-04-02] MEDS: DEXTROSE 50%-WATER INJ 50 ML SYRINGE IV (13:26)
[2025-04-02 13:54] LABS: Base Excess -12 (-3-3); HCO3 21 mEq/L (20-26); Inspired Oxygen, FIO2 70 %; O2 Saturation 91 % (91-98); PCO2 90 mmHg (32.0-48.0); PO2 79 mmHg (83-108)
[2025-04-02 13:58] LABS: Allen Test Performed/OK; Puncture Site Left Radial; pH, Arterial 6.98 (7.35-7.45)
[2025-04-02] MEDS: BACLOFEN 10 MG TABLET 30 MG PO (14:05)
[2025-04-02] MEDS: REMDESIVIR INJ 100 MG in SODIUM CHLORIDE 0.9% 100 ML IV (14:06)
[2025-04-02 15:28] LABS: Base Excess -12 (-3-3); HCO3 20 mEq/L (20-26); Inspired Oxygen, FIO2 80 %; O2 Saturation 93 % (91-98); PCO2 79 mmHg (32.0-48.0); PO2 79 mmHg (83-108)
[2025-04-02 15:29] LABS: Puncture Site Left Radial; pH, Arterial 7.02 (7.35-7.45)
[2025-04-02 15:30] LABS: Allen Test Performed/OK
[2025-04-02] MEDS: CISATRACURIUM INJ 200 MG in SODIUM CHLORIDE 0.9% 500 ML 500 ML 6.926 MG IV (15:45)
[2025-04-02] MEDS: PROPOFOL 1,000 MG IVPB 1,000 MG/100 ML VIAL 13.32 MG IV (16:45)
[2025-04-02] MEDS: VASOPRESSIN IN NS IVPB 20 UNIT/100 ML BAG 9 UNIT IV (18:30)
[2025-04-02] MEDS: fentaNYL 2,500 MCG/250 ML BAG 2,500 MCG/250 ML BAG 30 MCG IV (18:53)
[2025-04-02 19:40] LABS: Base Excess -11 (-3-3); HCO3 20 mEq/L (20-26); Inspired Oxygen, FIO2 80 %; O2 Saturation 99 % (91-98); PCO2 71 mmHg (32.0-48.0); PO2 122 mmHg (83-108)
[2025-04-02 19:45] LABS: pH, Arterial 7.07 (7.35-7.45)
[2025-04-02 19:46] LABS: Allen Test Performed/OK; Puncture Site Right Radial
[2025-04-02] MEDS: levETIRAcetam INJ 100 MG/ML VIAL 5ML 1000 MG IVP (20:57)
[2025-04-03] VITALS (103 sets, daily range): BP systolic 87–161; BP diastolic 46–100; PULSE 65–108; RESP 0–28; TEMP 32.7–36.4; O2SAT 89–98
[2025-04-03] MEDS: PROPOFOL 1,000 MG IVPB 1,000 MG/100 ML VIAL 13.32 MG IV ×3 (02:00→17:43)
[2025-04-03] MEDS: fentaNYL 2,500 MCG/250 ML BAG 2,500 MCG/250 ML BAG 30 MCG IV ×3 (03:00→19:49)
[2025-04-03] MEDS: ALBUTEROL/IPRATROPIUM (Duoneb) RT SOL 3 ML NEBU INH ×7 (03:10→22:20)
[2025-04-03] MEDS: VASOPRESSIN IN NS IVPB 20 UNIT/100 ML BAG 9 UNIT IV ×2 (03:30→15:49)
[2025-04-03 05:01] LABS: Base Excess -11 (-3-3); HCO3 20 mEq/L (20-26); Inspired Oxygen, FIO2 80 %; O2 Saturation 100 % (91-98); PCO2 70 mmHg (32.0-48.0); PO2 134 mmHg (83-108)
[2025-04-03 05:07] LABS: Allen Test Performed/OK; Puncture Site Right Radial
[2025-04-03 05:08] LABS: pH, Arterial 7.07 (7.35-7.45)
[2025-04-03] MEDS: PIPER/TAZO 3.375 GM PREMIX 3.375 GM/50 ML BAG IV ×3 (05:16→21:02)
--- NOTE | 2025-04-03 06:00 | XR_ITS ---
Examination: AP chest single view Technique one AP portable semiupright chest single view EXAMINATION: April 03, 2025 0533 hours Comparison April 02, 2025 INDICATIONS: Acute hypoxic respiratory failure, pneumonia/ARDS on chest films this week. FINDINGS: Severe bilateral lung opacity Normal heart size Tracheostomy tube tip 4.9 cm above Claudine Right internal jugular central line tip right atrium No pneumothorax IMPRESSION: No change in severe bilateral pneumonia/ARDS
[2025-04-03 06:43] LABS: Basophils # (Auto) 0.1 Thou/mm3 (0.0-0.2); Basophils % (Auto) 1 % (0-2.5); Eosinophils % (Auto) 0 % (0-10); Hematocrit 39.6 % (41.0-53.0); Hemoglobin 13.3 g/dL (13.5-16.0); Immature Granulocytes % (Auto) 4 % (0-0); Immature Granulocytes Auto 0.51 Thou/mm3 (0.00-0.00); Lymphocytes # (Auto) 1.4 Thou/mm3 (1.0-4.8); Lymphocytes % (Auto) 11 % (10-50); Mean Corpuscular HGB Conc 33.6 g/dl (31.0-37.0); Mean Corpuscular Hemoglobin 34.4 pg (25.0-35.0); Mean Corpuscular Volume 102 fL (80-100); Monocytes # (Auto) 0.8 Thou/mm3 (0.0-0.8); Monocytes % (Auto) 7 % (0-12); Neutrophils # (Auto) 9.8 Thou/mm3 (1.8-7.7); Neutrophils % (Auto) 78 % (37-80); Nucleated Red Blood Cell # 0.15 Thou/mm3 (0.00-0.00); Nucleated Red Blood Cell % 1 /100 WBC (0); Platelet Count 88 Thou/mm3 (140-440); RDW Standard Deviation 59.8 fL (35.1-43.9); Red Blood Count 3.87 Miln/mm3 (4.50-5.90); White Blood Count 12.6 Thou/mm3 (3.8-10.6)
[2025-04-03 07:12] LABS: Alanine Aminotransferase 33 U/L (10-49); Albumin, Serum 2.5 gm/dL (3.5-5.0); Alkaline Phosphatase 269 U/L (46-116); Anion Gap 10 (7-16); Aspartate Amino Transferase 64 U/L (0-34); BUN/Creatinine Ratio 21 Ratio (12-20); Bilirubin,Total 1.4 mg/dL (0.3-1.2); Blood Urea Nitrogen 17 mg/dL (9-23); Calcium (Corrected) 8.2 mg/dL (8.5-10.1); Carbon Dioxide 19.3 mMol/L (20.0-31.0); Cardiac Risk Estimate 4.1 RATIO (4.0-6.7); Chloride 120 mMol/L (98-107); Cholesterol 82 mg/dL (132-200); Creatine Kinase 26 U/L (34-171); Creatinine (Component) 0.8 mg/dL (0.6-1.3); Globulin 2.4 gm/dL (2.3-3.5); Glucose 132 mg/dL (74-106); HDL Cholesterol 20 mg/dL (40-60); LDL Cholesterol,Calculated 31 mg/dL (0-130); Magnesium 1.7 mg/dL (1.6-2.6); Osmolality,Calculated 299 (275-295); Phosphorous 3.3 mg/dL (2.4-5.1); Potassium 3.9 mMol/L (3.4-5.1); Sodium 149 mMol/L (136-145); Total Protein 4.9 gm/dL (5.7-8.2); Triglycerides 156 mg/dL (30-150); eGFR > 60 See Note
[2025-04-03] MEDS: Magnesium Sulfate 4 GM Ivpb 4 GM/50 ML BAG IV (08:32)
[2025-04-03] MEDS: POTASSIUM CHLORIDE 10% 20 MEQ/15 ML UDC GT (08:33)
[2025-04-03] MEDS: DOCUSATE SOD LIQD 100 MG/10 ML UDC GT (08:33)
[2025-04-03] MEDS: DEXAMETHASONE SOD PHOS INJ 10 MG/ML VIAL 6 MG IV (08:34)
[2025-04-03] MEDS: HEPARIN SOD INJ 5000 UNIT/ML VIAL SC ×2 (08:34→21:02)
[2025-04-03] MEDS: levETIRAcetam INJ 100 MG/ML VIAL 5ML 1000 MG IVP ×2 (08:37→21:02)
[2025-04-03] MEDS: FAMOTIDINE INJ 10 MG/ML VIAL 2 ML 20 MG IVP ×2 (08:37→21:02)
[2025-04-03] MEDS: SENNA TABLET 1 TAB GT (08:38)
--- NOTE | 2025-04-03 11:13 | PD.RESPRO ---
Documentation for date of: 04/03/25 Subjective Subjective Interval history: 35-year-old male with past medical history of cerebral palsy, seizures on phenobarbital and topiramate, status post PEG tube and tracheostomy, history of empyema and Pseudomonas pneumonia, who presented to the ED with tachypnea and desaturation around 70%. Per the caregiver symptom onset around a week ago with associated congestion and cough with pinkish phlegm as well as fever and chills. Patient is admitted for Acute hypoxic respiratory failure secondary to Ventilator associated pneumonia + Covid pneumonia. ED course: ED vitals: BP 106 64, HR 97, RR 22, temp 97.1 ?F, O2 saturation 71%. ED labs: Thrombocytopenia, ABG with pH 7.39, with low PO2, CHEM panel mostly unremarkable aside from elevated liver enzymes and alk phos, procalcitonin 2.06, lactic acid 5.3. ED Dx: Chest x-ray shows significant bilateral pneumonia patient was found to also be positive for COVID-19. ED treatment: Zosyn, dexamethasone, doxycycline, DuoNebs, 1 L IVF's 03/31/2025 ICU consulted for sepsis, secondary COVID pneumonia complicated with hemoptysis and acute hypoxic respiratory failure requiring mechanical ventilation via tracheostomy. 04/01/2025: Patient test positive for COVID and started on Dexamethasone 6 mg Qday for the next 10 days and Remdesivir 250 mg X 1 first dose today, followed by 100 mg IV starting tomorrow. Morning chest x-ray noted for left lober pneumonia, resumed antibiotics. Holding off any food feedings. Confirmed with family, at home amber was not using a by blow. 04/02/2025: No overnight events. Amber examined at bedside and continues to have diffuse rhonchi. Patient desating to spO2 of 88%. Amber noted to not be in sync with ventilator. Patient started on Fenantly and Propofol drip. Versed 2 mg X1 given. D/C Vancomycin as Blood culture negative and urine culture negative. 04/03/2025: Overnight respiratory acidosis per ABG, now pH 7.07. Bicarbonate Added. No adjustments made on ventilator. Additional breathing treatment added. No changes in peak pressure after albuterol treatment. P/F ration 167.5, moderate ARDS. Levo 0.23, Fentantly 300 mcg/kg, Propo 50 mcg/kg/min, vasopressin 0.03 units. Nimbex D/C. Exam Vital Signs Temp Pulse Resp BP Pulse Ox O2 Del Method O2 Flow Rate 97.6 F 71 25 H 98/59 L 94 L Mechanical Ventilation 30 04/03/25 04:01 04/03/25 10:33 04/03/25 10:33 04/03/25 07:45 04/03/25 10:33 04/03/25 07:01 03/31/25 06:16 FiO2 65 04/03/25 10:33 Narrative Exam General Appearance: Alert & Oriented X0, small male who is bed bound with contracture of lower extremities. HEENT: Skull asymmetrical and atraumatic. Conjunctivae pink and moist. Diminished pupil reaction to light accommodation . External ear without lesion or discharge. Cardio: Normal Rate and Rhythm with S1 and S2 heart sounds. No murmurs or extra heart sounds auscultated. No bruits on carotid auscultation. No peripheral edema or cyanosis. Lungs: Symmetric with reduced expansion. Decreased vesicular breath sounds with rhonchi Abdomen: Non-tender, Non-distended, Normal Reactive Bowel Sounds Neuro: No Alert, NO cooperative, NO oriented to person, No place, and No time. Speech clear. CN grossly intact. Upper motor strength 0/5 and Lower motor strength 0/5. Objective Labs 04/04/25 05:00 04/04/25 05:00 Labs: Laboratory Results - last 24 hr 03/31/25 04/02/25 04/02/25 05:20 13:45 15:13 WBC RBC Hgb Hct MCV MCH MCHC RDW Std Deviation Plt Count Neut % (Auto) Lymph % (Auto) [place] % (Auto) Eos % (Auto) Baso % (Auto) Neut # (Auto) Lymph # (Auto) [place] # (Auto) Eos # (Auto) Baso # (Auto) Immature Gran # (Auto) Absolute Nucleated RBC Immature Gran % Nucleated RBC % Puncture Site Left Radial Left Radial ABG pH 6.98 L* D 7.02 L* ABG pCO2 90 H* D 79 H* D ABG pO2 79 L 79 L ABG HCO3 21 20 ABG O2 Saturation 91 93 ABG Base Excess -12 L -12 L FiO2 70 80 Sodium Potassium Chloride Carbon Dioxide Anion Gap BUN Creatinine Estim Creat Clear Calc eGFR BUN/Creatinine Ratio Glucose Calculated Osmolality Calcium Corrected Calcium Phosphorus Magnesium Total Bilirubin AST ALT Alkaline Phosphatase Total Creatine Kinase Total Protein Albumin Globulin Albumin/Globulin Ratio Triglycerides Cholesterol LDL Cholesterol, Calc HDL Cholesterol Cholesterol/HDL Ratio Coccidioides IgG Ab Negative 04/02/25 04/03/25 19:10 04:40 WBC 12.6 H D RBC 3.87 L Hgb 13.3 L Hct 39.6 L MCV 102 H MCH 34.4 MCHC 33.6 RDW Std Deviation 59.8 H Plt Count 88 L Neut % (Auto) 78 Lymph % (Auto) 11 [place] % (Auto) 7 Eos % (Auto) 0 Baso % (Auto) 1 Neut # (Auto) 9.8 H Lymph # (Auto) 1.4 [place] # (Auto) 0.8 Eos # (Auto) 0.0 Baso # (Auto) 0.1 Immature Gran # (Auto) 0.51 H Absolute Nucleated RBC 0.15 H Immature Gran % 4 H Nucleated RBC % 1 H Puncture Site Right Radial Right Radial ABG pH 7.07 L* 7.07 L* ABG pCO2 71 H* 70 H ABG pO2 122 H D 134 H ABG HCO3 20 20 ABG O2 Saturation 99 H 100 H ABG Base Excess -11 L -11 L FiO2 80 80 Sodium 149 H Potassium 3.9 Chloride 120 H Carbon Dioxide 19.3 L Anion Gap 10 BUN 17 Creatinine 0.8 Estim Creat Clear Calc 78.0 eGFR > 60 BUN/Creatinine Ratio 21 H Glucose 132 H D Calculated Osmolality 299 H Calcium 7.0 L Corrected Calcium 8.2 L Phosphorus 3.3 Magnesium 1.7 Total Bilirubin 1.4 H D AST 64 H ALT 33 Alkaline Phosphatase 269 H D Total Creatine Kinase 26 L Total Protein 4.9 L Albumin 2.5 L D Globulin 2.4 Albumin/Globulin Ratio 1.0 L Triglycerides 156 H Cholesterol 82 L LDL Cholesterol, Calc 31 HDL Cholesterol 20 L Cholesterol/HDL Ratio 4.1 Coccidioides IgG Ab ABG Interpretation ABG results: 03/31/25 04/01/25 04/02/25 05:25 04:20 03:30 ABG pH 7.39 7.38 7.29 L ABG pCO2 35 35 39 ABG pO2 59 L* 77 L 56 L* D ABG HCO3 21 21 19 L ABG O2 Saturation 93 97 89 L ABG Base Excess -3 -4 L -7 L 0504/02/25 04/02/25 10:18 13:45 15:13 ABG pH 7.24 L 6.98 L* D 7.02 L* ABG pCO2 44 90 H* D 79 H* D ABG pO2 74 L 79 L 79 L ABG HCO3 19 L 21 20 ABG O2 Saturation 95 91 93 ABG Base Excess -9 L -12 L -12 L 04/02/25 04/03/25 19:10 04:40 ABG pH 7.07 L* 7.07 L* ABG pCO2 71 H* 70 H ABG pO2 122 H D 134 H ABG HCO3 20 20 ABG O2 Saturation 99 H 100 H ABG Base Excess -11 L -11 L Quality Measures Quality Measures none Assessment & Plan Assessment Current Active Medications: Generic Name Dose Route Start Last Admin Trade Name Freq PRN Reason Stop Dose Admin Acetaminophen 650 mg 03/31/25 09:08 03/31/25 10:57 Acetaminophen 325 Mg Tablet PO 04/30/25 09:07 650 mg Q6H PRN Administration Fever >101.5 Acetaminophen 650 mg 03/31/25 09:14 Acetaminophen 325 Mg Tablet PO 04/30/25 09:13 Q6H PRN PAIN SCALE 1-3 (mild Albuterol/Ipratropium 3 ml 03/31/25 11:00 04/03/25 10:28 Albuterol/Ipratropium (Duoneb) Rt Naila 3 Ml Nebu INH 04/30/25 10:59 3 ml Q4HRRT KATEY Administration Baclofen 40 mg 03/31/25 21:00 04/02/25 08:17 Baclofen 10 Mg Tablet PO 04/30/25 20:59 40 mg BID KATEY Administration Protocol Baclofen 30 mg 04/01/25 15:00 04/02/25 14:05 Baclofen 10 Mg Tablet PO 05/01/25 14:59 30 mg 1500 KATEY Administration Clorazepate 3.75 Mg 0 ea 03/31/25 21:00 04/02/25 20:59 Tablet PO 04/30/25 20:59 1 tablet BID KATEY Administration Dexamethasone Sodium Phosphate 6 mg 04/01/25 09:00 04/03/25 08:34 Dexamethasone Sod Phos Inj 10 Mg/Ml Vial IV 04/09/25 08:59 6 mg QDAY KATEY Administration Docusate Sodium 100 mg 04/02/25 09:00 04/03/25 08:33 Docusate Sod Liqd 100 Mg/10 Ml Udc GT 05/01/25 08:59 100 mg QDAY KATEY Administration Protocol Famotidine 20 mg 03/31/25 21:00 04/03/25 08:37 Famotidine Inj 10 Mg/Ml Vial 2 Ml IVP 04/30/25 20:59 20 mg BID KATEY Administration Heparin Sodium (Porcine) 5,000 unit 03/31/25 21:00 04/03/25 08:34 Heparin Sod Inj 5000 Unit/Ml Vial SC 04/14/25 20:59 5,000 unit BID KATEY Administration Piperacillin/Tazobactam/Dextrose 3.375 gm in 50 mls @ 12.5 mls/hr 04/01/25 14:00 04/03/25 05:16 Zosyn IV 04/08/25 13:59 12.5 mls/hr Q8HR KATEY Administration Remdesivir 100 mg/ Sodium 100 mls @ 100 mls/hr 04/02/25 14:00 04/03/25 00:47 Chloride IV 04/05/25 14:59 Infused Q24H NR Infusion Protocol Propofol 1,000 mg in 100 mls @ 1.332 mls/hr 04/02/25 08:22 04/03/25 08:39 Diprivan Ivpb IV 05/02/25 08:21 50 mcg/kg/min .Q24H PRN 13.32 mls/hr PER PROTOCOL Administration Protocol 5 MCG/KG/MIN Norepinephrine Bitartrate 16 mg in 250 mls @ 2.081 mls/hr 04/02/25 09:16 04/03/25 05:16 Levophed In Ns 16mg/250ml IV 05/02/25 09:15 0.23 mcg/kg/min .Q24H PRN 9.574 mls/hr PER protocol Titration Protocol 0.05 MCG/KG/MIN Fentanyl Citrate 2,500 mcg in 250 mls @ 2.5 mls/hr 04/02/25 12:00 04/03/25 05:00 Sublimaze Inj 2,500 Mcg/250 Ml Bag IV 04/07/25 08:06 300 mcg/hr .Q24H PRN 30 mls/hr PER PROTOCOL Titration Protocol 25 MCG/HR Vasopressin/Sodium Chloride 20 unit in 100 mls @ 9 mls/hr 04/02/25 17:37 04/03/25 03:30 Vasostrict/Ns Ivpb IV 05/02/25 17:36 0.03 unit/min .Q11H7M PRN 9 mls/hr PER PROTOCOL Administration Protocol 0.03 UNIT/MIN Magnesium Sulfate 4 gm in 50 mls @ 12.5 mls/hr 04/03/25 07:30 04/03/25 08:32 Magnesium Sulfate Ivpb IV 04/03/25 11:29 12.5 mls/hr X1 ONE Administration Sodium Bicarbonate 88.23 meq/ 588.23 mls @ 100 mls/hr 04/03/25 08:38 Dextrose IV 05/03/25 08:37 .Q5H53M KATEY Sodium Bicarbonate 150 meq/ 500 mls @ 50 mls/hr 04/03/25 09:45 Dextrose IV 05/03/25 09:44 .Q10H KATEY Protocol Levetiracetam 1,000 mg 04/02/25 21:00 04/03/25 08:37 Levetiracetam Inj 100 Mg/Ml Vial 5ml IVP 05/02/25 20:59 1,000 mg Q12HR KATEY Administration Ondansetron HCl 4 mg 03/31/25 09:14 Ondansetron Inj 2 Mg/Ml Inj 2 Ml IV 04/30/25 09:13 Q6H PRN NAUSEA OR VOMITING Protocol Pharmacy Consult 1 each 03/31/25 20:46 Pharmacy To Consult Patient XX 04/30/25 20:45 PRN PRN CONSULT Phenobarbital 32.4 mg 03/31/25 09:45 04/02/25 08:33 Phenobarbital 32.4 Mg Tablet GT 04/14/25 09:44 32.4 mg BID KATEY Administration Sennosides 1 tab 04/03/25 08:03 04/03/25 08:38 Senna Tablet GT 05/01/25 08:59 1 tab QDAY KATEY Administration Protocol Topiramate 200 mg 03/31/25 09:45 04/02/25 08:33 Topiramate 100 Mg Tablet GT 04/30/25 09:44 200 mg BID KATEY Administration Plan 35-year-old male with past medical history of cerebral palsy, seizures on phenobarbital and topiramate, status post PEG tube and tracheostomy, history of empyema and Pseudomonas pneumonia who was admitted on 03/31/2025 for sepsis secondary to COVID pneumonia and acute hypoxic respiratory failure. CLIENT EXPERIENCE ADMINISTRATOR: #Cerebral Palsy #Seizures HOLD home medication of phenobarbital, topiramate, and Clorazepate -holding home medication as patient was started on propofol and fenatly CVS Shock likely in the setting in the distributive and respiratory acidosis. Levo 0.23 and vasopressin 0.03 units added. -continue to monitor MAP >65 Respiratory: #Acute hypoxic respiratory #Pneumonia, secondary to COVID #ARDS, moderate #Left Lobar CAP #Elevated Lactic Acid, resolved. #Respiratory Acidosis, secondary CO2 retention Acute hypoxic respiratory failure given patient failed out patient treatment with Levofloxacin and COVID positive, Pneumonia secondary to COVID likely source of infection. Although superimposed bacterial pneumonia infection less common in COVID, worsening chest x-ray showing extensive consolidations w/ airbronchograms, continue antibiotics. Given extent of patient's pneumonia and adequate fluid resuscitation in ER 1.4 (L) Vancomycin stopped on 04/02/2025 as blood culture negative. Sputum cutlure positive for pseudomonas aeruginosa sensitive to Zosyn, continue. ABG noted to have respiratory acidosis secondary to elevated CO2. Adjusted Tidal Volume, repeat ABG. P/F ration 167.5 -Mechanical Ventilation, current plateau pressure of 21 PEEP 9 RR 25 VT 290 -Levo 0.23, Fentantly 300 mcg/kg, Propo 50 mcg/kg/min, vasopressin 0.03 units. Nimbex D/C. -Zosyn (03/31/2025--) -Dexamethasone 6 mg Qday 04/01/2025-04/09/2025 -Daily Chest x-rays and ABG. #Hemoptysis, resolved. Likely secondary to pneumonia vs deep suctioning vs less likely secondary to TB or Cocci. Cocci Negative. 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 GI: s/p PEG tube Resume tube feedings at rate of 15 cc per hour Bedside glucose checks. Endo: stable Heme: stable ID: #Sepsis Secondary to Pneumonia COVID #ARDS, moderate #Left Lobar, CAP, Pseudomonas #SIRs COVID pnuemonia showing diffuse bilateral opacities on chest x-ray with P/F ratio of 92.25, thus moderate ARDS pattern. Superimosed bacterial pneumonia less frequent pattern noted with COVID, but given worsening chest x-ray noted to have lobar pneumonia with air bronchograms, superimposed CAP likely. Patient no longer using by blow at home for several months now. Preliminary sputum culture growing GNR, [facility] cultrue results. Day one of Remdesivir 200 mg X 1 and Dexamethasone 6 mg Day one. Previous MRSA negative. Previous sputum culture in 2023, positive for Pseudomonas. 44.4 kg to 42.4 kg. No lasix given today. P/F ration 167.5 -Zosyn 03/31/2025 & Vancomycin (03/31/2025) -Remdesivir 100 mg IV Q24 04/02/2025-04/05/2025 -Dexamethasone 6 mg day 1 (04/01/2025-04/11/2025) -blood cultures negative after 48 hours Health Maintenance: Disp: Pt is currently admitted to floors for further management of sepsis secondary to ventilator associated and hemoptysis, awaiting improved ARDS pattern FEN: Resume PEG tube feeding, Pepcid BID DVT: on subQ heparin Drips: Levo 0.23, Fentantly 300 mcg/kg, Propo 50 mcg/kg/min, vasopressin 0.03 units Code: Full Code - The patient's plan was discussed with attending Dr. Dannie Ohara MD Attending Provider Attestation/Addendum Patient seen and examined with above resident, Liliana Ohara MD. I agree with the findings, assessment, and plan of care as document except for any differences below. Patient has complaint seems to have improved along with chest film showing improved aeration of the left upper lobe though there are new infiltrates involving the right lung likely secondary to dependent edema and infection. Patient was started on bicarb drip to optimize pH in order to augment effectiveness of vasopressor support. Patient noted later adjustments made to ensure lung protective strategy is maintained with appropriate plateau pressure <30. Peak pressures remain elevated we did try albuterol hour-long treatment with no significant improvement. Airway disease likely secondary to bronchiectasis from recurrent infections in the past. Patient was receiving chest physiotherapy but given poor pulmonary compliance and lack of obstruction of the airways, will hold off on this at this point. Patient remains on appropriate antibiotics with gram-negative crys growth consistent with Pseudomonas which she does have a known history of. Sensitivities proved and current antibiotic regimen is appropriate. Patient has ARDS pattern given reduced PF ratio along with bilateral infiltrates though predominantly in the left upper lobe pneumonia. Patient continues to have guarded prognosis though I think we can hold off on any further aggressive measures as he is tolerating current regimen. Will need to be cautious of balancing hemodynamics along with safe ventilation. Patient is parents were at bedside throughout the day and have been updated by myself and the above resident. Total critical care time: I personally spent 45 minutes for review of physiologic parameters, directing plan of care throughout the day, and counseling patient's family extensively at bedside. This is exclusive of time spent teaching housestaff or performing any separate billable procedures. Patient remains at significant risk for further morbidity and mortality warranting close monitoring and care only available in the intensive care unit. Patient required critical care services for acute on chronic hypoxic respiratory failure secondary to ARDS with COVID pneumonia and superimposed bronchiectasis with acute exacerbation.
[2025-04-03] MEDS: SODIUM BICARB IV ×2 (11:41→22:00)
[2025-04-03] MEDS: DEXTROSE 5% IV ×2 (11:41→22:00)
[2025-04-03] MEDS: WATER IV ×2 (11:41→22:00)
[2025-04-03] MEDS: REMDESIVIR INJ 100 MG in SODIUM CHLORIDE 0.9% 100 ML IV (13:54)
[2025-04-03] MEDS: Norepinephrine/NS 16mg/250ml 16 MG/250 ML BAG 10.406 MG IV (16:14)
--- NOTE | 2025-04-03 16:36 | PC.SS ---
INTERNET ECOMMERCE SPECIALIST conducted phone contact with the patient?s mother, Yohana Garrison ; to conduct initial assessment and to discuss discharge planning on behalf of the patient.? INTERNET [employer]ER[employer] SPECIALIST utilized byproducts maker to assist with discussion.? Patient possesses a history of cerebral palsy, PEG tube placement and trach.? Patient currently in ICU.? Patient resides at home with parents.? Patient is bedbound.? Patient in possession of trach.? Patient requires assistance with completion of ADL?s.? Patient?s mother is assigned IHSS provider.? Patient?s surrogate medical decision maker is mother, Yohana Garrison.? The patient?s PCP is [facility].? Patient does not possess any specialty providers.? [facility] utilized for medication services.? Patient?s mother manages the patient?s trach and PEG tube.? No issues reported.? Discharge plan is for the patient to return home. ?If home health recommended no preferred vendor identified.? child and family services worker will arrange transportation for patient upon discharge.? No discharge needs identified at this time.? No further intervention required at this time, social work faculty member will be available to address any further concerns.? Next of Kin: Yohana Garrison D/C Plan: Home
[2025-04-03 18:51] LABS: Base Excess -6 (-3-3); HCO3 24 mEq/L (20-26); Inspired Oxygen, FIO2 65 %; O2 Saturation 96 % (91-98); PCO2 71 mmHg (32.0-48.0); PO2 74 mmHg (83-108)
[2025-04-03 18:58] LABS: pH, Arterial 7.14 (7.35-7.45)
[2025-04-03 18:59] LABS: Allen Test Performed/OK; Puncture Site Left Radial
[2025-04-04] VITALS (147 sets, daily range): BP systolic 82–128; BP diastolic 41–77; PULSE 96–124; RESP 8–31; TEMP 36–36.5; O2SAT 88–94; BMI 26.9
[2025-04-04] MEDS: PROPOFOL 1,000 MG IVPB 1,000 MG/100 ML VIAL 13.32 MG IV ×4 (00:45→23:39)
[2025-04-04] MEDS: VASOPRESSIN IN NS IVPB 20 UNIT/100 ML BAG 9 UNIT IV ×3 (02:36→23:38)
[2025-04-04] MEDS: ALBUTEROL/IPRATROPIUM (Duoneb) RT SOL 3 ML NEBU INH ×6 (02:50→22:45)
[2025-04-04] MEDS: fentaNYL 2,500 MCG/250 ML BAG 2,500 MCG/250 ML BAG 30 MCG IV ×3 (04:10→21:19)
[2025-04-04] MEDS: PIPER/TAZO 3.375 GM PREMIX 3.375 GM/50 ML BAG IV ×3 (05:23→21:28)
[2025-04-04 05:33] LABS: Base Excess -3 (-3-3); HCO3 28 mEq/L (20-26); Inspired Oxygen, FIO2 90 %; O2 Saturation 98 % (91-98); PCO2 85 mmHg (32.0-48.0); PO2 96 mmHg (83-108)
[2025-04-04 05:55] LABS: Basophils % (Auto) 0 % (0-2.5); Eosinophils % (Auto) 0 % (0-10); Hematocrit 41.6 % (41.0-53.0); Hemoglobin 13.9 g/dL (13.5-16.0); Immature Granulocytes % (Auto) 3 % (0-0); Immature Granulocytes Auto 0.21 Thou/mm3 (0.00-0.00); Lymphocytes # (Auto) 0.8 Thou/mm3 (1.0-4.8); Lymphocytes % (Auto) 9 % (10-50); Mean Corpuscular HGB Conc 33.4 g/dl (31.0-37.0); Mean Corpuscular Hemoglobin 34.6 pg (25.0-35.0); Mean Corpuscular Volume 104 fL (80-100); Monocytes # (Auto) 0.5 Thou/mm3 (0.0-0.8); Monocytes % (Auto) 6 % (0-12); Neutrophils % (Auto) 82 % (37-80); Nucleated Red Blood Cell # 0.08 Thou/mm3 (0.00-0.00); Nucleated Red Blood Cell % 1 /100 WBC (0); RDW Standard Deviation 59.8 fL (35.1-43.9); Red Blood Count 4.02 Miln/mm3 (4.50-5.90); White Blood Count 8.5 Thou/mm3 (3.8-10.6)
--- NOTE | 2025-04-04 06:00 | XR_ITS ---
Examination: AP chest single view TECHNIQUE: AP portable semiupright chest single view Exam date and time: April 04, 2025, 0511 hours Comparison April 03, 2025 INDICATIONS: Pneumonia ARDS on earlier chest films this week FINDINGS: Again noted is severe bilateral lung opacity Right internal jugular central line tip right atrium. No pneumothorax. Tracheostomy tube tip 3.7 cm above Claudine IMPRESSION: No change in severe bilateral pneumonia/ARDS pattern
[2025-04-04 06:10] LABS: Platelet Count 53 Thou/mm3 (140-440)
[2025-04-04 06:17] LABS: pH, Arterial 7.12 (7.35-7.45)
[2025-04-04 06:18] LABS: Allen Test Performed/OK; Puncture Site Left Radial
[2025-04-04 06:39] LABS: Alanine Aminotransferase 23 U/L (10-49); Albumin, Serum 2.6 gm/dL (3.5-5.0); Alkaline Phosphatase 262 U/L (46-116); Anion Gap 6 (7-16); Aspartate Amino Transferase 51 U/L (0-34); BUN/Creatinine Ratio 16 Ratio (12-20); Bilirubin,Total 1.3 mg/dL (0.3-1.2); Blood Urea Nitrogen 18 mg/dL (9-23); Calcium 7.7 mg/dL (8.3-10.6); Calcium (Corrected) 8.8 mg/dL (8.5-10.1); Carbon Dioxide 29.6 mMol/L (20.0-31.0); Chloride 115 mMol/L (98-107); Creatinine (Component) 1.1 mg/dL (0.6-1.3); Estimated Creatinine Clearance 56.3 mL/min (>60); Globulin 2.5 gm/dL (2.3-3.5); Glucose 106 mg/dL (74-106); Magnesium 2.7 mg/dL (1.6-2.6); Osmolality,Calculated 301 (275-295); Phosphorous 2.3 mg/dL (2.4-5.1); Sodium 151 mMol/L (136-145); Total Protein 5.1 gm/dL (5.7-8.2); eGFR > 60 See Note
[2025-04-04 07:13] LABS: Potassium 2.6 mMol/L (3.4-5.1)
[2025-04-04] MEDS: POTASSIUM CHL 20 mEq IVPB 20 MEQ/100 ML BAG 50 MEQ IV ×2 (07:33→09:32)
[2025-04-04] MEDS: POTASSIUM CHLORIDE 10% 20 MEQ/15 ML UDC 40 MEQ GT (07:34)
[2025-04-04] MEDS: DEXAMETHASONE SOD PHOS INJ 10 MG/ML VIAL 6 MG IV (08:15)
[2025-04-04] MEDS: FAMOTIDINE INJ 10 MG/ML VIAL 2 ML 20 MG IVP ×2 (08:15→20:36)
[2025-04-04] MEDS: levETIRAcetam INJ 100 MG/ML VIAL 5ML 1000 MG IVP ×2 (08:16→20:36)
[2025-04-04] MEDS: DOCUSATE SOD LIQD 100 MG/10 ML UDC GT (08:16)
[2025-04-04] MEDS: HEPARIN SOD INJ 5000 UNIT/ML VIAL SC ×2 (08:16→20:39)
[2025-04-04] MEDS: SENNA TABLET 1 TAB GT (08:18)
[2025-04-04 08:38] LABS: Slide Review Platelets confirmed
[2025-04-04] MEDS: Norepinephrine/NS 16mg/250ml 16 MG/250 ML BAG 26.224 MG IV (09:05)
[2025-04-04] MEDS: SODIUM BICARB IV ×3 (09:07→21:23)
[2025-04-04] MEDS: DEXTROSE 5% IV ×3 (09:07→21:23)
[2025-04-04] MEDS: WATER IV ×3 (09:07→21:23)
[2025-04-04 13:36] LABS: Anion Gap 6 (7-16); BUN/Creatinine Ratio 16 Ratio (12-20); Blood Urea Nitrogen 18 mg/dL (9-23); Calcium 7.2 mg/dL (8.3-10.6); Carbon Dioxide 33.5 mMol/L (20.0-31.0); Chloride 114 mMol/L (98-107); Creatinine (Component) 1.1 mg/dL (0.6-1.3); Estimated Creatinine Clearance 56.3 mL/min (>60); Glucose 131 mg/dL (74-106); Osmolality,Calculated 307 (275-295); Sodium 153 mMol/L (136-145); eGFR > 60 See Note
[2025-04-04 13:54] LABS: Base Excess, Venous 0 (-3-3); O2 Saturation, Venous 92 % (96-97); PCO2, Venous 93 mmHg (36-56); PO2, Venous 58 mmHg (15-58); pH, Venous 7.14 (7.33-7.66)
[2025-04-04] MEDS: REMDESIVIR INJ 100 MG in SODIUM CHLORIDE 0.9% 100 ML IV (14:38)
--- NOTE | 2025-04-04 16:33 | ESPR_ITS ---
Documentation for date of: 04/04/25 Subjective Subjective Interval history: 35-year-old male with past medical history of cerebral palsy, seizures on phenobarbital and topiramate, status post PEG tube and tracheostomy, history of empyema and Pseudomonas pneumonia, who presented to the ED with tachypnea and desaturation around 70%. Per the caregiver symptom onset around a week ago with associated congestion and cough with pinkish phlegm as well as fever and chills. Patient is admitted for Acute hypoxic respiratory failure secondary to Ventilator associated pneumonia + Covid pneumonia. ED course: ED vitals: BP 106 64, HR 97, RR 22, temp 97.1 ?F, O2 saturation 71%. ED labs: Thrombocytopenia, ABG with pH 7.39, with low PO2, CHEM panel mostly unremarkable aside from elevated liver enzymes and alk phos, procalcitonin 2.06, lactic acid 5.3. ED Dx: Chest x-ray shows significant bilateral pneumonia patient was found to also be positive for COVID-19. ED treatment: Zosyn, dexamethasone, doxycycline, DuoNebs, 1 L IVF's 03/31/2025 ICU consulted for sepsis, secondary COVID pneumonia complicated with hemoptysis and acute hypoxic respiratory failure requiring mechanical ventilation via tracheostomy. 04/01/2025: Patient test positive for COVID and started on Dexamethasone 6 mg Qday for the next 10 days and Remdesivir 250 mg X 1 first dose today, followed by 100 mg IV starting tomorrow. Morning chest x-ray noted for left lober pneumonia, resumed antibiotics. Holding off any food feedings. Confirmed with family, at home amber was not using a by blow. 04/02/2025: No overnight events. Amber examined at bedside and continues to have diffuse rhonchi. Patient desating to spO2 of 88%. Amber noted to not be in sync with ventilator. Patient started on Fenantly and Propofol drip. Versed 2 mg X1 given. D/C Vancomycin as Blood culture negative and urine culture negative. 04/03/2025: Overnight respiratory acidosis per ABG, now pH 7.07. Bicarbonate Added. No adjustments made on ventilator. Additional breathing treatment added. No changes in peak pressure after albuterol treatment. P/F ration 167.5, moderate ARDS. Levo 0.23, Fentantly 300 mcg/kg, Propo 50 mcg/kg/min, vasopressin 0.03 units. Nimbex D/C. 04/04/2025: Patient continues to have significant hypoxia more so hypercapnia. With significant air trapping after adjustments overnight to care evaluation with increasing requirements for vasopressors. Increased bicarbonate drip to compensate for respiratory acidosis. Patient continues to have urinary output is stable although creatinine rising. Patient's gas exchange otherwise improved after adjustments with reduction in air trapping and further optimization of IT ratio. Plateau pressure remains elevated right at 30. However I did decrease tidal volume and adjust flow to minimize peak pressures which have had minimal improvement. Patient's family at bedside. Culture data remains unchanged on appropriate antibiotic and antibiotic regimen. Critical Care Note Critical care time (min.): 40 Exam Vital Signs Temp Pulse Resp BP Pulse Ox O2 Del Method O2 Flow Rate 97.6 F 111 H 22 H 105/54 L 93 L Mechanical Ventilation 30 04/04/25 12:00 04/04/25 15:45 04/04/25 15:45 04/04/25 15:45 04/04/25 15:45 04/04/25 12:00 03/31/25 06:16 FiO2 100 04/04/25 15:21 Narrative Exam General Appearance: Intubated/sedated small male who is bed bound with contracture of lower extremities. HEENT: Skull asymmetrical and atraumatic. Conjunctivae pink and moist. Diminished pupil reaction to light accommodation . External ear without lesion or discharge. Cardio: Normal Rate and Rhythm with S1 and S2 heart sounds. No murmurs or extra heart sounds auscultated. No bruits on carotid auscultation. No peripheral edema or cyanosis. Lungs: Symmetric with reduced expansion. Decreased vesicular breath sounds with rhonchi Abdomen: Non-tender, Non-distended, Normal Reactive Bowel Sounds Neuro: Significant upper extremity and lower extremity contractures Physical Exam Completion Physical Exam Complete?: Yes Objective - [employer] Manager Labs 04/05/25 04:53 04/04/25 13:00 Labs: Laboratory Results - last 24 hr 04/03/25 04/04/25 04/04/25 18:40 04:35 05:00 WBC 8.5 RBC 4.02 L Hgb 13.9 Hct 41.6 MCV 104 H MCH 34.6 MCHC 33.4 RDW Std Deviation 59.8 H Plt Count 53 L D Neut % (Auto) 82 H Lymph % (Auto) 9 L [place] % (Auto) 6 Eos % (Auto) 0 Baso % (Auto) 0 Neut # (Auto) 7.0 Lymph # (Auto) 0.8 L [place] # (Auto) 0.5 Eos # (Auto) 0.0 Baso # (Auto) 0.0 Immature Gran # (Auto) 0.21 H Absolute Nucleated RBC 0.08 H Immature Gran % 3 H Nucleated RBC % 1 H Puncture Site Left Radial Left Radial ABG pH 7.14 L* 7.12 L* ABG pCO2 71 H* 85 H* D ABG pO2 74 L D 96 D ABG HCO3 24 28 H ABG O2 Saturation 96 98 ABG Base Excess -6 L -3 VBG pH VBG pCO2 VBG pO2 VBG O2 Sat (Sarika) VBG Base Excess FiO2 65 90 Sodium 151 H Potassium 2.6 L* D Chloride 115 H Carbon Dioxide 29.6 Anion Gap 6 L BUN 18 Creatinine 1.1 Estim Creat Clear Calc 56.3 L eGFR > 60 BUN/Creatinine Ratio 16 Glucose 106 Calculated Osmolality 301 H Calcium 7.7 L Corrected Calcium 8.8 Phosphorus 2.3 L Magnesium 2.7 H Total Bilirubin 1.3 H AST 51 H ALT 23 Alkaline Phosphatase 262 H Total Protein 5.1 L Albumin 2.6 L Globulin 2.5 Albumin/Globulin Ratio 1.0 L Misc Test Result Platelets confirmed 04/04/25 04/04/25 13:00 13:50 WBC RBC Hgb Hct MCV MCH MCHC RDW Std Deviation Plt Count Neut % (Auto) Lymph % (Auto) [place] % (Auto) Eos % (Auto) Baso % (Auto) Neut # (Auto) Lymph # (Auto) [place] # (Auto) Eos # (Auto) Baso # (Auto) Immature Gran # (Auto) Absolute Nucleated RBC Immature Gran % Nucleated RBC % Puncture Site ABG pH ABG pCO2 ABG pO2 ABG HCO3 ABG O2 Saturation ABG Base Excess VBG pH 7.14 L VBG pCO2 93 H VBG pO2 58 VBG O2 Sat (Sarika) 92 L VBG Base Excess 0 FiO2 Sodium 153 H Potassium 4.0 D Chloride 114 H Carbon Dioxide 33.5 H Anion Gap 6 L BUN 18 Creatinine 1.1 Estim Creat Clear Calc 56.3 L eGFR > 60 BUN/Creatinine Ratio 16 Glucose 131 H Calculated Osmolality 307 H Calcium 7.2 L Corrected Calcium Phosphorus Magnesium Total Bilirubin AST ALT Alkaline Phosphatase Total Protein Albumin Globulin Albumin/Globulin Ratio Misc Test Result Assessment & Plan Additional Plan Additional Plan: 35-year-old male with past medical history of cerebral palsy, seizures on phenobarbital and topiramate, status post PEG tube and tracheostomy, history of empyema and Pseudomonas pneumonia who was admitted on 03/31/2025 for sepsis secondary to COVID pneumonia and acute hypoxic respiratory failure. FLATWORK PRESSER: #Cerebral Palsy #Seizures HOLD home medication of phenobarbital, topiramate, and Clorazepate -holding home medication as patient was started on propofol and fentanyl [facility] Shock likely in the setting in the distributive and respiratory acidosis. Significant elevation in to Levo 0.61 and vasopressin 0.03 units added. -continue to monitor MAP >65 Respiratory: #Acute hypoxic respiratory #Pneumonia, secondary to COVID #ARDS, moderate #Left Lobar CAP #Elevated Lactic Acid, resolved. #Respiratory Acidosis, secondary CO2 retention Acute hypoxic respiratory failure given patient failed out patient treatment with Levofloxacin and COVID positive, Pneumonia secondary to COVID likely source of infection. Although superimposed bacterial pneumonia infection less common in COVID, worsening chest x-ray showing extensive consolidations w/ airbronchograms, continue antibiotics. Given extent of patient's pneumonia and adequate fluid resuscitation in ER 1.4 (L) Vancomycin stopped on 04/02/2025 as blood culture negative. Sputum cutlure positive for pseudomonas aeruginosa sensitive to Zosyn, continue. VBG noted to have respiratory acidosis secondary to elevated CO2. Adjusted Tidal Volume/ RR, repeat VBGs. P/F ration <200 -Mechanical Ventilation, current plateau pressure of 30 PEEP 9 RR 20 VT 280 -Levo 0.61, Fentantly 300 mcg/kg, Propo 50 mcg/kg/min, vasopressin 0.03 units. Nimbex D/C. -Zosyn (03/31/2025--) -Dexamethasone 6 mg Qday 04/01/2025-04/09/2025 -Daily Chest x-rays and ABG/VBG #Hemoptysis, resolved. Likely secondary to pneumonia vs deep suctioning vs less likely secondary to TB or Cocci. Cocci Negative. 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 GI: s/p PEG tube Resume tube feedings at rate of 15 cc per hour Bedside glucose checks. Endo: stable Heme: stable ID: #Sepsis Secondary to Pneumonia COVID #ARDS, moderate #Left Lobar, CAP, Pseudomonas #SIRs COVID pnuemonia showing diffuse bilateral opacities on chest x-ray with P/F ratio of <100. Superimosed bacterial pneumonia less frequent pattern noted with COVID, but given worsening chest x-ray noted to have lobar pneumonia with air bronchograms, superimposed CAP likely. Patient no longer using blow by at home for several months now. Sputum culture growing pseudomonas. Remdesivir 100 mg daily and Dexamethasone 6 mg. Previous MRSA negative. Previous sputum culture in 2023, positive for Pseudomonas. 44.4 kg to 42.4 kg. No lasix given today. -Zosyn 03/31/2025 & Vancomycin (03/31/2025) -Remdesivir 100 mg IV Q24 04/02/2025-04/05/2025 -Dexamethasone 6 mg day 1 (04/01/2025-04/11/2025) -blood cultures negative after 48 hours Health Maintenance: Disp: Pt is currently admitted to ICU for further management of sepsis secondary to ARDS/ COVID PNA FEN: Resume PEG tube feeding, Pepcid BID DVT: on subQ heparin Drips: Levo 0.61, Fentantly 300 mcg/kg, Propo 50 mcg/kg/min, vasopressin 0.03 units Code: Full Code Provider Notation Provider Notation: Although this document has been carefully reviewed, there may still be some phonetic and other typographical errors. These errors are purely grammatical due to imperfections in the software program and should not be construed in any way to compromise the substance of the patient's medical care during this visit. Thank you for the opportunity and privilege in assisting you with this patient's care and management.
--- NOTE | 2025-04-04 17:07 | PC.SS ---
Update: Patient is trach/PEG. Patient on pressor support. Receiving IV antibiotics. NPO at current time. Davis catheter in place. Covid (+).
[2025-04-04] MEDS: CALCIUM GLUC/NS 1000MG IVPB 1,000 MG/50 ML BAG 50 MG IV ×2 (17:52→18:33)
[2025-04-04] MEDS: Norepinephrine/NS 16mg/250ml 16 MG/250 ML BAG 32.051 MG IV (18:17)
[2025-04-05] VITALS (282 sets, daily range): BP systolic 77–133; BP diastolic 42–82; PULSE 97–189; RESP 0–45; TEMP 35.8–36.3; O2SAT 82–98
[2025-04-05] MEDS: ALBUTEROL/IPRATROPIUM (Duoneb) RT SOL 3 ML NEBU INH ×6 (02:51→23:07)
[2025-04-05] MEDS: Norepinephrine/NS 16mg/250ml 16 MG/250 ML BAG 33.716 MG IV (03:00)
[2025-04-05] MEDS: DEXTROSE 5% IV (03:43)
[2025-04-05] MEDS: SODIUM BICARB IV (03:43)
[2025-04-05] MEDS: WATER IV (03:43)
[2025-04-05 05:33] LABS: Base Excess 10 (-3-3); HCO3 42 mEq/L (20-26); Inspired Oxygen, FIO2 21 %; O2 Saturation 82 % (91-98); PCO2 113 mmHg (32.0-48.0)
[2025-04-05 05:36] LABS: Allen Test Performed/OK; Puncture Site Right Radial
[2025-04-05 05:37] LABS: pH, Arterial 7.18 (7.35-7.45)
[2025-04-05 05:38] LABS: PO2 45 mmHg (83-108)
[2025-04-05] MEDS: fentaNYL 2,500 MCG/250 ML BAG 2,500 MCG/250 ML BAG 30 MCG IV (05:39)
[2025-04-05 06:12] LABS: Basophils % (Auto) 1 % (0-2.5); Eosinophils % (Auto) 0 % (0-10); Hematocrit 34.3 % (41.0-53.0); Hemoglobin 11.8 g/dL (13.5-16.0); Immature Granulocytes % (Auto) 2 % (0-0); Lymphocytes # (Auto) 0.6 Thou/mm3 (1.0-4.8); Lymphocytes % (Auto) 9 % (10-50); Mean Corpuscular HGB Conc 34.4 g/dl (31.0-37.0); Mean Corpuscular Hemoglobin 34.9 pg (25.0-35.0); Mean Corpuscular Volume 102 fL (80-100); Monocytes # (Auto) 0.6 Thou/mm3 (0.0-0.8); Monocytes % (Auto) 9 % (0-12); Neutrophils # (Auto) 5.2 Thou/mm3 (1.8-7.7); Neutrophils % (Auto) 80 % (37-80); Nucleated Red Blood Cell # 0.06 Thou/mm3 (0.00-0.00); Nucleated Red Blood Cell % 1 /100 WBC (0); RDW Standard Deviation 58.5 fL (35.1-43.9); Red Blood Count 3.38 Miln/mm3 (4.50-5.90); White Blood Count 6.5 Thou/mm3 (3.8-10.6)
[2025-04-05 06:23] LABS: Platelet Count 32 Thou/mm3 (140-440)
[2025-04-05 06:24] LABS: Slide Review Platelets confirmed
[2025-04-05] MEDS: PROPOFOL 1,000 MG IVPB 1,000 MG/100 ML VIAL 13.32 MG IV (06:32)
[2025-04-05] MEDS: PIPER/TAZO 3.375 GM PREMIX 3.375 GM/50 ML BAG IV ×3 (06:37→21:34)
[2025-04-05 06:41] LABS: Alanine Aminotransferase 15 U/L (10-49); Albumin, Serum 2.2 gm/dL (3.5-5.0); Alkaline Phosphatase 136 U/L (46-116); Anion Gap 9 (7-16); Aspartate Amino Transferase 48 U/L (0-34); BUN/Creatinine Ratio 17 Ratio (12-20); Bilirubin,Total 2.8 mg/dL (0.3-1.2); Blood Urea Nitrogen 20 mg/dL (9-23); Calcium 7.3 mg/dL (8.3-10.6); Calcium (Corrected) 8.7 mg/dL (8.5-10.1); Carbon Dioxide > 40.0 mMol/L (20.0-31.0); Chloride 110 mMol/L (98-107); Creatine Kinase 19 U/L (34-171); Creatinine (Component) 1.2 mg/dL (0.6-1.3); Estimated Creatinine Clearance 51.7 mL/min (>60); Globulin 2.3 gm/dL (2.3-3.5); Glucose 112 mg/dL (74-106); Magnesium 2.5 mg/dL (1.6-2.6); Osmolality,Calculated 318 (275-295); Phosphorous 2.5 mg/dL (2.4-5.1); Potassium 3.2 mMol/L (3.4-5.1); Sodium 159 mMol/L (136-145); Total Protein 4.5 gm/dL (5.7-8.2); Triglycerides 161 mg/dL (30-150); eGFR > 60 See Note
[2025-04-05] MEDS: FUROSEMIDE INJ 10 MG/ML 4ML VIAL 40 MG IVP (08:52)
[2025-04-05] MEDS: DOCUSATE SOD LIQD 100 MG/10 ML UDC GT (08:54)
[2025-04-05] MEDS: SENNA TABLET 1 TAB GT (08:55)
[2025-04-05] MEDS: FAMOTIDINE INJ 10 MG/ML VIAL 2 ML 20 MG IVP ×2 (08:55→21:33)
[2025-04-05] MEDS: TOPIRAMATE 100 MG TABLET 200 MG GT ×2 (08:55→21:34)
[2025-04-05] MEDS: DEXAMETHASONE SOD PHOS INJ 10 MG/ML VIAL 6 MG IV (08:56)
[2025-04-05] MEDS: PHENobarbitaL 32.4 MG TABLET GT ×2 (08:56→21:34)
--- NOTE | 2025-04-05 09:00 | XR_ITS ---
Examination: AP chest single view Technique one AP portable semiupright chest single view Date and time: April 05, 2025 0709 hours Comparison April 04, 2025 INDICATIONS: Acute hypoxic respiratory failure, pneumonia or ARDS on chest imaging this week. FINDINGS: Bilateral severe lung opacity, more prominent in the left upper lobe Mild elevation left hemidiaphragm. Right internal jugular central line tip SVC satisfactory position, no pneumothorax Tracheostomy tube tip 3.2 cm above Claudine IMPRESSION: Severe bilateral pneumonia ARDS pattern, more severe in the left upper lobe, consider aspiration
[2025-04-05 09:08] LABS: Base Excess 12 (-3-3); HCO3 43 mEq/L (20-26); PCO2 105 mmHg (32.0-48.0); pH, Arterial 7.22 (7.35-7.45)
[2025-04-05 09:12] LABS: Allen Test Performed/OK; Inspired Oxygen, FIO2 100 %; O2 Saturation 96 % (91-98); Puncture Site Right Brachial
[2025-04-05 09:13] LABS: PO2 53 mmHg (83-108)
[2025-04-05] MEDS: Norepinephrine/NS 16mg/250ml 16 MG/250 ML BAG 31.219 MG IV (09:22)
--- NOTE | 2025-04-05 10:03 | PD.RESPRO ---
Documentation for date of: 04/05/25 Subjective Subjective Interval history: 35-year-old male with past medical history of cerebral palsy, seizures on phenobarbital and topiramate, status post PEG tube and tracheostomy, history of empyema and Pseudomonas pneumonia, who presented to the ED with tachypnea and desaturation around 70%. Per the caregiver symptom onset around a week ago with associated congestion and cough with pinkish phlegm as well as fever and chills. Patient is admitted for Acute hypoxic respiratory failure secondary to Ventilator associated pneumonia + Covid pneumonia. ED course: ED vitals: BP 106 64, HR 97, RR 22, temp 97.1 ?F, O2 saturation 71%. ED labs: Thrombocytopenia, ABG with pH 7.39, with low PO2, CHEM panel mostly unremarkable aside from elevated liver enzymes and alk phos, procalcitonin 2.06, lactic acid 5.3. ED Dx: Chest x-ray shows significant bilateral pneumonia patient was found to also be positive for COVID-19. ED treatment: Zosyn, dexamethasone, doxycycline, DuoNebs, 1 L IVF's 03/31/2025 ICU consulted for sepsis, secondary COVID pneumonia complicated with hemoptysis and acute hypoxic respiratory failure requiring mechanical ventilation via tracheostomy. 04/01/2025: Patient test positive for COVID and started on Dexamethasone 6 mg Qday for the next 10 days and Remdesivir 250 mg X 1 first dose today, followed by 100 mg IV starting tomorrow. Morning chest x-ray noted for left lober pneumonia, resumed antibiotics. Holding off any food feedings. Confirmed with family, at home amber was not using a by blow. 04/02/2025: No overnight events. Amber examined at bedside and continues to have diffuse rhonchi. Patient desating to spO2 of 88%. Amber noted to not be in sync with ventilator. Patient started on Fenantly and Propofol drip. Versed 2 mg X1 given. D/C Vancomycin as Blood culture negative and urine culture negative. 04/03/2025: Overnight respiratory acidosis per ABG, now pH 7.07. Bicarbonate Added. No adjustments made on ventilator. Additional breathing treatment added. No changes in peak pressure after albuterol treatment. P/F ration 167.5, moderate ARDS. Levo 0.23, Fentantly 300 mcg/kg, Propo 50 mcg/kg/min, vasopressin 0.03 units. Nimbex D/C. 04/04/2025: Patient continues to have significant hypoxia more so hypercapnia. With significant air trapping after adjustments overnight to care evaluation with increasing requirements for vasopressors. Increased bicarbonate drip to compensate for respiratory acidosis. Patient continues to have urinary output is stable although creatinine rising. Patient's gas exchange otherwise improved after adjustments with reduction in air trapping and further optimization of IT ratio. Plateau pressure remains elevated right at 30. However I did decrease tidal volume and adjust flow to minimize peak pressures which have had minimal improvement. Patient's family at bedside. Culture data remains unchanged on appropriate antibiotic and antibiotic regimen. 04/05/2025: No overnight events. This morning Levophed rate of 0.81 mcg per kg/min, titrating down, Proofolol at 50 mcg/kg STOPPED today/reduce amount of fluids, Vasopressin 0.03 unts. Fenatly 300 mcg/r--->decreased by 25% to 225 mcg/hr and Oxycodone 20 mg PO QID. Respiratory acidosis at ABG pH 7.22, bicarbonate drip holding. Follow up on repeat ABG given serum bicarbon >40. Continue antibiotics. Repeat chest x-ray, increased lower lobe consolidation on left lung field. Lasix X 1, increased perpheral edema. Repeat ABG at 3 PM. Holding Heparin given thrombocytopenia. P/F ratio 214 (morning ABG) Exam Vital Signs Temp Pulse Resp BP Pulse Ox O2 Del Method O2 Flow Rate 96.8 F 106 H 22 H 119/56 L 95 Mechanical Ventilation 30 04/05/25 08:00 04/05/25 09:30 04/05/25 09:30 04/05/25 09:30 04/05/25 09:30 04/05/25 08:00 03/31/25 06:16 FiO2 100 04/05/25 08:00 Narrative Exam General Appearance: Alert & Oriented X0, small male who is bed bound with contracture of lower extremities. Mechanically ventilated. HEENT: Skull asymmetrical and atraumatic. Conjunctivae pink and moist. Diminished pupil reaction to light accommodation . External ear without lesion or discharge. Cardio: Normal Rate and Rhythm with S1 and S2 heart sounds. No murmurs or extra heart sounds auscultated. No bruits on carotid auscultation. No peripheral edema or cyanosis. Lungs: Symmetric with reduced expansion. Decreased vesicular breath sounds with rhonchi Abdomen: Non-tender, Non-distended, Normal Reactive Bowel Sounds Neuro: No Alert, NO cooperative, NO oriented to person, No place, and No time. Speech clear. CN grossly intact. Upper motor strength 0/5 and Lower motor strength 0/5. Objective Labs 04/05/25 04:53 04/05/25 21:12 Labs: Laboratory Results - last 24 hr 04/04/25 04/04/25 04/05/25 13:00 13:50 04:53 WBC 6.5 RBC 3.38 L Hgb 11.8 L D Hct 34.3 L MCV 102 H MCH 34.9 MCHC 34.4 RDW Std Deviation 58.5 H Plt Count 32 L D Neut % (Auto) 80 Lymph % (Auto) 9 L Burnett % (Auto) 9 Eos % (Auto) 0 Baso % (Auto) 1 Neut # (Auto) 5.2 Lymph # (Auto) 0.6 L Burnett # (Auto) 0.6 Eos # (Auto) 0.0 Baso # (Auto) 0.0 Immature Gran # (Auto) 0.10 H Absolute Nucleated RBC 0.06 H Immature Gran % 2 H Nucleated RBC % 1 H Puncture Site ABG pH ABG pCO2 ABG pO2 ABG HCO3 ABG O2 Saturation ABG Base Excess VBG pH 7.14 L VBG pCO2 93 H VBG pO2 58 VBG O2 Sat (Sarika) 92 L VBG Base Excess 0 FiO2 Sodium 153 H 159 H Potassium 4.0 D 3.2 L D Chloride 114 H 110 H Carbon Dioxide 33.5 H > 40.0 H Anion Gap 6 L 9 BUN 18 20 Creatinine 1.1 1.2 Estim Creat Clear Calc 56.3 L 51.7 L eGFR > 60 > 60 BUN/Creatinine Ratio 16 17 Glucose 131 H 112 H Calculated Osmolality 307 H 318 H Calcium 7.2 L 7.3 L Corrected Calcium 8.7 Phosphorus 2.5 Magnesium 2.5 Total Bilirubin 2.8 H D AST 48 H ALT 15 Alkaline Phosphatase 136 H D Total Creatine Kinase 19 L Total Protein 4.5 L Albumin 2.2 L Globulin 2.3 Albumin/Globulin Ratio 1.0 L Triglycerides 161 H Misc Test Result Platelets confirmed 04/05/25 04/05/25 05:17 09:00 WBC RBC Hgb Hct MCV MCH MCHC RDW Std Deviation Plt Count Neut % (Auto) Lymph % (Auto) Burnett % (Auto) Eos % (Auto) Baso % (Auto) Neut # (Auto) Lymph # (Auto) Burnett # (Auto) Eos # (Auto) Baso # (Auto) Immature Gran # (Auto) Absolute Nucleated RBC Immature Gran % Nucleated RBC % Puncture Site Right Radial Right Brachial ABG pH 7.18 L* 7.22 L ABG pCO2 113 H* D 105 H* ABG pO2 45 L* D 53 L* ABG HCO3 42 H 43 H ABG O2 Saturation 82 L 96 ABG Base Excess 10 H 12 H VBG pH VBG pCO2 VBG pO2 VBG O2 Sat (Sarika) VBG Base Excess FiO2 21 100 Sodium Potassium Chloride Carbon Dioxide Anion Gap BUN Creatinine Estim Creat Clear Calc eGFR BUN/Creatinine Ratio Glucose Calculated Osmolality Calcium Corrected Calcium Phosphorus Magnesium Total Bilirubin AST ALT Alkaline Phosphatase Total Creatine Kinase Total Protein Albumin Globulin Albumin/Globulin Ratio Triglycerides Misc Test Result ABG Interpretation ABG results: 03/31/25 04/01/25 04/02/25 05:25 04:20 03:30 ABG pH 7.39 7.38 7.29 L ABG pCO2 35 35 39 ABG pO2 59 L* 77 L 56 L* D ABG HCO3 21 21 19 L ABG O2 Saturation 93 97 89 L ABG Base Excess -3 -4 L -7 L VBG pH VBG pCO2 VBG pO2 VBG Base Excess 04/02/25 04/02/25 04/02/25 10:18 13:45 15:13 ABG pH 7.24 L 6.98 L* D 7.02 L* ABG pCO2 44 90 H* D 79 H* D ABG pO2 74 L 79 L 79 L ABG HCO3 19 L 21 20 ABG O2 Saturation 95 91 93 ABG Base Excess -9 L -12 L -12 L VBG pH VBG pCO2 VBG pO2 VBG Base Excess 04/02/25 04/03/25 04/03/25 19:10 04:40 18:40 ABG pH 7.07 L* 7.07 L* 7.14 L* ABG pCO2 71 H* 70 H 71 H* ABG pO2 122 H D 134 H 74 L D ABG HCO3 20 20 24 ABG O2 Saturation 99 H 100 H 96 ABG Base Excess -11 L -11 L -6 L VBG pH VBG pCO2 VBG pO2 VBG Base Excess 04/04/25 04/04/25 04/05/25 04:35 13:50 05:17 ABG pH 7.12 L* 7.18 L* ABG pCO2 85 H* D 113 H* D ABG pO2 96 D 45 L* D ABG HCO3 28 H 42 H ABG O2 Saturation 98 82 L ABG Base Excess -3 10 H VBG pH 7.14 L VBG pCO2 93 H VBG pO2 58 VBG Base Excess 0 04/05/25 09:00 ABG pH 7.22 L ABG pCO2 105 H* ABG pO2 53 L* ABG HCO3 43 H ABG O2 Saturation 96 ABG Base Excess 12 H VBG pH VBG pCO2 VBG pO2 VBG Base Excess Quality Measures Quality Measures none Assessment & Plan Assessment Current Active Medications: Generic Name Dose Route Start Last Admin Trade Name Freq PRN Reason Stop Dose Admin Acetaminophen 650 mg 03/31/25 09:08 03/31/25 10:57 Acetaminophen 325 Mg Tablet PO 04/30/25 09:07 650 mg Q6H PRN Administration Fever >101.5 Acetaminophen 650 mg 03/31/25 09:14 Acetaminophen 325 Mg Tablet PO 04/30/25 09:13 Q6H PRN PAIN SCALE 1-3 (mild Albuterol/Ipratropium 3 ml 03/31/25 11:00 04/05/25 06:39 Albuterol/Ipratropium (Duoneb) Rt Naila 3 Ml Nebu INH 04/30/25 10:59 3 ml Q4HRRT KATEY Administration Baclofen 40 mg 03/31/25 21:00 04/02/25 08:17 Baclofen 10 Mg Tablet PO 04/30/25 20:59 40 mg BID KATEY Administration Protocol Baclofen 30 mg 04/01/25 15:00 04/02/25 14:05 Baclofen 10 Mg Tablet PO 05/01/25 14:59 30 mg 1500 KATEY Administration Clorazepate 3.75 Mg 0 ea 03/31/25 21:00 04/02/25 20:59 Tablet PO 04/30/25 20:59 1 tablet BID KATEY Administration Dexamethasone Sodium Phosphate 6 mg 04/01/25 09:00 04/05/25 08:56 Dexamethasone Sod Phos Inj 10 Mg/Ml Vial IV 04/09/25 08:59 6 mg QDAY KATEY Administration Docusate Sodium 100 mg 04/02/25 09:00 04/05/25 08:54 Docusate Sod Liqd 100 Mg/10 Ml Udc GT 05/01/25 08:59 100 mg QDAY KATEY Administration Protocol Famotidine 20 mg 03/31/25 21:00 04/05/25 08:55 Famotidine Inj 10 Mg/Ml Vial 2 Ml IVP 04/30/25 20:59 20 mg BID KATEY Administration Heparin Sodium (Porcine) 5,000 unit 03/31/25 21:00 04/04/25 20:39 Heparin Sod Inj 5000 Unit/Ml Vial SC 04/14/25 20:59 5,000 unit BID KATEY Administration Piperacillin/Tazobactam/Dextrose 3.375 gm in 50 mls @ 12.5 mls/hr 04/01/25 14:00 04/05/25 06:37 Zosyn IV 04/08/25 13:59 12.5 mls/hr Q8HR KATEY Administration Remdesivir 100 mg/ Sodium 100 mls @ 100 mls/hr 04/02/25 14:00 04/04/25 14:38 Chloride IV 04/05/25 14:59 100 mls/hr Q24H NR Administration Protocol Propofol 1,000 mg in 100 mls @ 1.332 mls/hr 04/02/25 08:22 04/05/25 07:43 Diprivan Ivpb IV 05/02/25 08:21 0 mcg/kg/min .Q24H PRN 0 mls/hr PER PROTOCOL Titration Protocol 5 MCG/KG/MIN Norepinephrine Bitartrate 16 mg in 250 mls @ 2.081 mls/hr 04/02/25 09:16 04/05/25 09:27 Levophed In Ns 16mg/250ml IV 05/02/25 09:15 0.73 mcg/kg/min .Q24H PRN 30.386 mls/hr PER protocol Titration Protocol 0.05 MCG/KG/MIN Fentanyl Citrate 2,500 mcg in 250 mls @ 2.5 mls/hr 04/02/25 12:00 04/05/25 08:00 Sublimaze Inj 2,500 Mcg/250 Ml Bag IV 04/07/25 08:06 300 mcg/hr .Q24H PRN 30 mls/hr PER PROTOCOL Titration Protocol 25 MCG/HR Vasopressin/Sodium Chloride 20 unit in 100 mls @ 9 mls/hr 04/02/25 17:37 04/05/25 07:00 Vasostrict/Ns Ivpb IV 05/02/25 17:36 0.03 unit/min .Q11H7M PRN 9 mls/hr PER PROTOCOL Titration Protocol 0.03 UNIT/MIN Sodium Bicarbonate 150 meq/ 500 mls @ 100 mls/hr 04/04/25 09:17 04/05/25 07:00 Dextrose IV 05/04/25 09:16 100 mls/hr .Q5H KATEY Infusion Protocol Ondansetron HCl 4 mg 03/31/25 09:14 Ondansetron Inj 2 Mg/Ml Inj 2 Ml IV 04/30/25 09:13 Q6H PRN NAUSEA OR VOMITING Protocol Oxycodone HCl 20 mg 04/05/25 12:00 Oxycodone Hcl 5 Mg Ir Tab PO 04/10/25 11:59 QID KATEY Protocol Pharmacy Consult 1 each 03/31/25 20:46 Pharmacy To Consult Patient XX 04/30/25 20:45 PRN PRN CONSULT Phenobarbital 32.4 mg 03/31/25 09:45 04/05/25 08:56 Phenobarbital 32.4 Mg Tablet GT 04/14/25 09:44 32.4 mg BID KATEY Administration Sennosides 1 tab 04/03/25 08:03 04/05/25 08:55 Senna Tablet GT 05/01/25 08:59 1 tab QDAY KATEY Administration Protocol Topiramate 200 mg 03/31/25 09:45 04/05/25 08:55 Topiramate 100 Mg Tablet GT 04/30/25 09:44 200 mg BID KATEY Administration Plan 35-year-old male with past medical history of cerebral palsy, seizures on phenobarbital and topiramate, status post PEG tube and tracheostomy, history of empyema and Pseudomonas pneumonia who was admitted on 03/31/2025 for sepsis secondary to COVID pneumonia and acute hypoxic respiratory failure. 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 Levo 0.81 (titrating down) and vasopressin 0.03 units added. -continue to monitor MAP >65 Respiratory: #Acute hypoxic respiratory #Pneumonia, secondary to COVID #ARDS, moderate #Left Lobar CAP #Elevated Lactic Acid, resolved. #Respiratory Acidosis, secondary CO2 retention Acute hypoxic respiratory failure given patient failed out patient treatment with Levofloxacin and COVID positive, Pneumonia secondary to COVID likely source of infection. Although superimposed bacterial pneumonia infection less common in COVID, worsening chest x-ray showing extensive consolidations w/ airbronchograms, continue antibiotics. Given extent of patient's pneumonia and adequate fluid resuscitation in ER 1.4 (L) Vancomycin stopped on 04/02/2025 as blood culture negative. Sputum cutlure positive for pseudomonas aeruginosa sensitive to Zosyn, continue. ABG noted to have respiratory acidosis secondary to elevated CO2. Adjusted Tidal Volume, repeat ABG. P/F ration 167.5 -Mechanical Ventilation, current plateau pressure of 21 PEEP 9 RR 25 VT 290 -Levo 0.23, Fentantly 300 mcg/kg, Propo 50 mcg/kg/min, vasopressin 0.03 units. Nimbex D/C. -Zosyn (03/31/2025--) -Dexamethasone 6 mg Qday 04/01/2025-04/09/2025 -Daily Chest x-rays and ABG. #Hemoptysis, resolved. Likely secondary to pneumonia vs deep suctioning vs less likely secondary to TB or Cocci. Cocci Negative. 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 GI: s/p PEG tube Holding tube feedings at rate of 15 cc per hour Bedside glucose checks. Endo: stable Heme: #Thrombocytopenia likely reactive secondary to acute infection. -Hold Heparin #Acute Normocytic anemia No signs of active bleeding, likely secondary to inflammation and infection -continue to monitor hemoglobin, transfuse <7 ID: #Sepsis Secondary to Pneumonia COVID #ARDS, moderate #Left Lobar, CAP, Pseudomonas #SIRs COVID pnuemonia showing diffuse bilateral opacities on chest x-ray with P/F ratio of 92.25, thus moderate ARDS pattern. Superimosed bacterial pneumonia less frequent pattern noted with COVID, but given worsening chest x-ray noted to have lobar pneumonia with air bronchograms, superimposed CAP likely. Patient no longer using by blow at home for several months now. Preliminary sputum culture growing GNR, anthony smithl cultrue results. Day one of Remdesivir 200 mg X 1 and Dexamethasone 6 mg Day one. Previous MRSA negative. Previous sputum culture in 2023, positive for Pseudomonas. Lasix x1 given (04/05/2025) and P/F 214 -Lasix 40 mg IVP X 1 -Zosyn 03/31/2025 & Vancomycin (03/31/2025) -Remdesivir 100 mg IV Q24 04/02/2025-04/05/2025 -Dexamethasone 6 mg day 1 (04/01/2025-04/11/2025) -blood cultures negative after 48 hours Health Maintenance: Disp: Pt is currently admitted to floors for further management of sepsis secondary to ventilator associated and hemoptysis, awaiting improved ARDS pattern FEN: Holding PEG tube feeding, Pepcid BID DVT: on subQ heparin-HOLD GIVE THROMBOCYTOPENIA Drips: Levophed 0.81 (itrating down), Fentantly 225 mcg/kg, Propofol D/C, vasopressin 0.03 units Code: Full Code - The patient's plan was discussed with attending Dr. Dannie Ohara MD PGY-1 Resident Attending Provider Attestation/Addendum Patient seen and examined with the above resident, Liliana Ohara MD. I agree with the findings, assessment, and plan of care as documented except for any differences below. Patient stable but with limited reserve still. Tolerating permissive hypercapnea and borderline PPlat ~30. Patient with stable oxygenation which is slow to improve given his previous structural lung disease. Antibiotics seems to have controlled superimposed bacterial infection but inflammatory state form COVID slow to resolve. Patient afebrile and WBC improved. pCO2 in low 100s. pH >7.2 now and we did discontinue NaHCO3 gtt. Diamox and lasix given to help diuresis. Na is rising and free water resumed via the NG tube. Minimize fluid intake, oral oxycodone and resumption of home antiseizure medications to discontinue propofol/ limit fentanyl rate. Remains synchronous with vent. Continue to hold tube feeds for preventing increase in O2 consumption. Renal function is preserved thus far but may become limiting step in recovery. Fluid positive for admission per I/Os but weight is down. Optimize to facilitate respiratory status in interim. Clinically with edema now. Patient's family aware of guarded prognosis but remain hopeful. We are able to come down on pressors now with metabolic compensation for respiratory acidosis now and normalizing of pH to >7.2. Will continue to adjust slowly with multiple systems competing at this time. Hold VTE prophylaxis, with thrombocytopenia. On H2 alex. Total critical care time: I personally spent 40 minutes for review of physiologic parameters, directing plan of care, and counseling patient's family. This is exclusive of time spent teaching housestaff or performing any separate billable procedures. Patient at very high risk of further morbidity and mortality warranting close monitoring and care only available in ICU. Critical care services delivered for acute on chronic hypoxic respiratory failure, COVID PNA, Secondary bacterial pneumonia with pseudomonas, hypernatremia.
[2025-04-05 11:44] LABS: Base Excess, Venous 12 (-3-3); O2 Saturation, Venous 86 % (96-97); PCO2, Venous 96 mmHg (36-56); PO2, Venous 47 mmHg (15-58); pH, Venous 7.26 (7.33-7.66)
[2025-04-05] MEDS: Artificial Tears 225 DROP/15 ML BTL BOTH EYES (12:14)
[2025-04-05] MEDS: oxyCODONE HCL 5 MG IR TAB 20 MG PO (12:14)
[2025-04-05] MEDS: VASOPRESSIN IN NS IVPB 20 UNIT/100 ML BAG 9 UNIT IV ×2 (12:32→22:38)
[2025-04-05] MEDS: REMDESIVIR INJ 100 MG in SODIUM CHLORIDE 0.9% 100 ML IV (14:12)
[2025-04-05] MEDS: fentaNYL 2,500 MCG/250 ML BAG 2,500 MCG/250 ML BAG 22.5 MCG IV (14:36)
--- NOTE | 2025-04-05 15:00 | XR_ITS ---
Examination: AP chest single view Time: AP semiupright portable chest single view Exam date and time: 07/06/2025 1137 hours Comparison April 05, 2025 0709 hours INDICATIONS: Worsening O2 desaturation hypoxia FINDINGS: Severe bilateral lung opacity The current exam is severely underpenetrated Tracheostomy tube 3.7 cm above Claudine Right internal jugular central line tip stable position IMPRESSION: Limited study Severe bilateral pneumonia /ARDS again noted
[2025-04-05 16:04] LABS: Base Excess, Venous 12 (-3-3); O2 Saturation, Venous 91 % (96-97); PCO2, Venous 95 mmHg (36-56); PO2, Venous 56 mmHg (15-58); pH, Venous 7.26 (7.33-7.66)
--- NOTE | 2025-04-05 16:32 | EKG_ITS ---
[facility] (Formerly [facility]) Test Date: 2025-04-05 Pat Name: ARCHANA RAMSEY [facility] [place] [place] 1990 Requested By: Liliana Ohara Order Number: [id number] Reading MD: Liliana Ohara Measurements Intervals [place] Rate: 185 P: GA: QRS: 66 QRSD: 120 T: 127 QT: 248 QTc: 436 Interpretive Statements UNCERTAIN REGULAR RHYTHM RIGHT BUNDLE BRANCH BLOCK Compared to ECG 03/31/2025 05:10:12 Right bundle-branch block now present Sinus tachycardia no longer present /store/S0/[id number].pdf
--- NOTE | 2025-04-05 16:34 | XR_ITS ---
Examination: AP chest single view Technique one AP portable semiupright chest single view Exam date 9: April 05, 2025 1651 hours Comparison April 05, 2025 and 37 hours INDICATIONS: Acute hypoxic respiratory failure, worsening hypoxia and tachycardia FINDINGS: Severe bilateral lung opacity, more severe in the left upper lobe compared with the chest x-ray April 04, 2025 Tracheostomy tube tip 4.2 cm above cordell Right internal jugular central line tip right atrium Normal heart size IMPRESSION: Severe bilateral pneumonia ARDS, worse in the left upper lobe compared with April 04, 2025
[2025-04-05] MEDS: POTASSIUM CHLORIDE 10% 20 MEQ/15 ML UDC 40 MEQ GT (16:40)
[2025-04-05] MEDS: POTASSIUM CHL 20 mEq IVPB 20 MEQ/100 ML BAG 50 MEQ IV ×2 (16:49→18:54)
[2025-04-05] MEDS: AMIODARONE 150 MG IVPB 150 MG/100 ML BAG 600 MG IV (16:59)
[2025-04-05] MEDS: MIDAZOLAM INJ 1 MG/ML VIAL 2 ML 2 MG IVP (17:06)
[2025-04-05 17:10] LABS: Base Excess, Venous 10 (-3-3); O2 Saturation, Venous 83 % (96-97); PCO2, Venous 101 mmHg (36-56); PO2, Venous 48 mmHg (15-58); pH, Venous 7.23 (7.33-7.66)
--- NOTE | 2025-04-05 17:15 | PD.RESEVENT ---
Documentation for date of: 04/05/25 Event Note Event Note: Cardioverted 1708 Patient developed SVT, heart rate 180-200s. Oxygen saturation decreased 82 to 85%. Patient MAP below 65. Hemodynamically unstable. Amiodarone bolus, followed by amiodarone drip. Patient was cardioverted at 1708-improved sinus tachycardia 108. Labs ordered: Renal panel, ABG, chest x-ray, EKG, and troponin. FiO2 increased. - The patient's plan was discussed with attending Dr. Dannie Ohara MD PGY1 Internal Medicine
[2025-04-05] MEDS: AMIODARONE 360 MG IVPB 360 MG/200 ML BAG 33.333 MG IV (17:18)
[2025-04-05 17:51] LABS: Albumin, Serum 2.4 gm/dL (3.5-5.0); Anion Gap 11 (7-16); BUN/Creatinine Ratio 16 Ratio (12-20); Blood Urea Nitrogen 21 mg/dL (9-23); Calcium 7.1 mg/dL (8.3-10.6); Calcium (Corrected) 8.4 mg/dL (8.5-10.1); Carbon Dioxide > 40.0 mMol/L (20.0-31.0); Chloride 109 mMol/L (98-107); Creatinine (Component) 1.3 mg/dL (0.6-1.3); Estimated Creatinine Clearance 47.7 mL/min (>60); Glucose 88 mg/dL (74-106); Osmolality,Calculated 318 (275-295); Phosphorous 3.6 mg/dL (2.4-5.1); Potassium 3.6 mMol/L (3.4-5.1); Sodium 160 mMol/L (136-145); Troponin I < 0.020 ng/mL (0.0-0.045); eGFR > 60 See Note
[2025-04-05] MEDS: Norepinephrine/NS 16mg/250ml 16 MG/250 ML BAG 26.224 MG IV (18:58)
[2025-04-05 19:12] LABS: Lactate (Lactic Acid) 4.9 mMol/L (0.4-2.0)
[2025-04-05] MEDS: ACETAzolaMIDE SOD 500 MG in SODIUM CHLORIDE 0.9% (Popper) 50 ML 100 MG IV (19:13)
[2025-04-05 21:58] LABS: Reflex Lactate? Y
[2025-04-05 22:13] LABS: Albumin, Serum 2.3 gm/dL (3.5-5.0); Anion Gap 8 (7-16); BUN/Creatinine Ratio 16 Ratio (12-20); Blood Urea Nitrogen 22 mg/dL (9-23); Calcium 6.9 mg/dL (8.3-10.6); Calcium (Corrected) 8.3 mg/dL (8.5-10.1); Carbon Dioxide > 40.0 mMol/L (20.0-31.0); Chloride 110 mMol/L (98-107); Creatinine (Component) 1.4 mg/dL (0.6-1.3); Estimated Creatinine Clearance 44.3 mL/min (>60); Glucose 94 mg/dL (74-106); Osmolality,Calculated 316 (275-295); Phosphorous 3.7 mg/dL (2.4-5.1); Potassium 4.8 mMol/L (3.4-5.1); Sodium 158 mMol/L (136-145); eGFR > 60 See Note
[2025-04-05 22:21] LABS: Base Excess, Venous 9 (-3-3); O2 Saturation, Venous 99 % (96-97); PCO2, Venous 95 mmHg (36-56); PO2, Venous 123 mmHg (15-58); pH, Venous 7.23 (7.33-7.66)
[2025-04-05 22:27] LABS: Lactic Acid, 3 HR 4.9 mMol/L (0.4-2.0)
[2025-04-05] MEDS: AMIODARONE 360 MG IVPB 360 MG/200 ML BAG 16.667 MG IV (23:22)
[2025-04-06] VITALS (264 sets, daily range): BP systolic 85–141; BP diastolic 31–87; PULSE 96–106; RESP 0–33; TEMP 36.5–36.6; O2SAT 84–92; BMI 27.1
[2025-04-06] MEDS: fentaNYL 2,500 MCG/250 ML BAG 2,500 MCG/250 ML BAG 22.5 MCG IV ×3 (01:03→23:57)
[2025-04-06 01:31] LABS: Albumin, Serum 2.2 gm/dL (3.5-5.0); Anion Gap 8 (7-16); BUN/Creatinine Ratio 16 Ratio (12-20); Blood Urea Nitrogen 23 mg/dL (9-23); Calcium (Corrected) 8.2 mg/dL (8.5-10.1); Carbon Dioxide 39.8 mMol/L (20.0-31.0); Chloride 107 mMol/L (98-107); Creatinine (Component) 1.4 mg/dL (0.6-1.3); Estimated Creatinine Clearance 44.3 mL/min (>60); Glucose 86 mg/dL (74-106); Osmolality,Calculated 310 (275-295); Phosphorous 4.1 mg/dL (2.4-5.1); Potassium 5.2 mMol/L (3.4-5.1); Sodium 155 mMol/L (136-145); eGFR > 60 See Note
[2025-04-06 01:35] LABS: Calcium 6.8 mg/dL (8.3-10.6)
[2025-04-06] MEDS: Norepinephrine/NS 16mg/250ml 16 MG/250 ML BAG 54.529 MG IV (02:04)
[2025-04-06] MEDS: ALBUTEROL/IPRATROPIUM (Duoneb) RT SOL 3 ML NEBU INH ×5 (02:56→22:25)
[2025-04-06 05:12] LABS: Base Excess 8 (-3-3); HCO3 39 mEq/L (20-26); Inspired Oxygen, FIO2 100 %; O2 Saturation 96 % (91-98); PCO2 106 mmHg (32.0-48.0); PO2 80 mmHg (83-108)
[2025-04-06] MEDS: PIPER/TAZO 3.375 GM PREMIX 3.375 GM/50 ML BAG IV ×3 (05:19→21:01)
[2025-04-06 05:23] LABS: Puncture Site Left Radial; pH, Arterial 7.17 (7.35-7.45)
[2025-04-06 05:24] LABS: Allen Test Not Performed
[2025-04-06 06:20] LABS: Basophils % (Auto) 0 % (0-2.5); Eosinophils % (Auto) 0 % (0-10); Hematocrit 31.5 % (41.0-53.0); Hemoglobin 10.5 g/dL (13.5-16.0); Immature Granulocytes % (Auto) 1 % (0-0); Immature Granulocytes Auto 0.17 Thou/mm3 (0.00-0.00); Lymphocytes # (Auto) 0.5 Thou/mm3 (1.0-4.8); Lymphocytes % (Auto) 5 % (10-50); Mean Corpuscular HGB Conc 33.3 g/dl (31.0-37.0); Mean Corpuscular Hemoglobin 34.8 pg (25.0-35.0); Mean Corpuscular Volume 104 fL (80-100); Monocytes # (Auto) 0.9 Thou/mm3 (0.0-0.8); Monocytes % (Auto) 8 % (0-12); Neutrophils # (Auto) 10.2 Thou/mm3 (1.8-7.7); Neutrophils % (Auto) 86 % (37-80); Nucleated Red Blood Cell # 0.13 Thou/mm3 (0.00-0.00); Nucleated Red Blood Cell % 1 /100 WBC (0); RDW Standard Deviation 62.1 fL (35.1-43.9); Red Blood Count 3.02 Miln/mm3 (4.50-5.90); White Blood Count 11.8 Thou/mm3 (3.8-10.6)
[2025-04-06 06:22] LABS: Platelet Count 76 Thou/mm3 (140-440)
[2025-04-06] MEDS: Norepinephrine/NS 16mg/250ml 16 MG/250 ML BAG 62.854 MG IV ×2 (06:45→19:22)
[2025-04-06 06:47] LABS: Alanine Aminotransferase 14 U/L (10-49); Albumin, Serum 2.2 gm/dL (3.5-5.0); Albumin/Globulin Ratio 0.9 (1.2-2.2); Alkaline Phosphatase 179 U/L (46-116); Anion Gap 7 (7-16); Aspartate Amino Transferase 63 U/L (0-34); BUN/Creatinine Ratio 15 Ratio (12-20); Bilirubin,Total 4.1 mg/dL (0.3-1.2); Blood Urea Nitrogen 22 mg/dL (9-23); Calcium (Corrected) 8.1 mg/dL (8.5-10.1); Carbon Dioxide 38.6 mMol/L (20.0-31.0); Chloride 106 mMol/L (98-107); Creatinine (Component) 1.5 mg/dL (0.6-1.3); Estimated Creatinine Clearance 41.3 mL/min (>60); Globulin 2.4 gm/dL (2.3-3.5); Glucose 68 mg/dL (74-106); Magnesium 2.2 mg/dL (1.6-2.6); Osmolality,Calculated 303 (275-295); Phosphorous 4.2 mg/dL (2.4-5.1); Potassium 5.2 mMol/L (3.4-5.1); Sodium 152 mMol/L (136-145); Total Protein 4.6 gm/dL (5.7-8.2); eGFR > 60 See Note
[2025-04-06 06:49] LABS: Calcium 6.7 mg/dL (8.3-10.6)
[2025-04-06 06:53] LABS: Slide Review Platelets confirmed
[2025-04-06 07:35] LABS: Bilirubin,Direct 2.9 mg/dL (0.0-0.3)
[2025-04-06] MEDS: CALCIUM GLUC/NS 1000MG IVPB 1,000 MG/50 ML BAG 50 MG IV (08:04)
[2025-04-06 08:40] LABS: Lactate (Lactic Acid) 2.6 mMol/L (0.4-2.0)
[2025-04-06] MEDS: VASOPRESSIN IN NS IVPB 20 UNIT/100 ML BAG 9 UNIT IV ×2 (08:59→19:39)
[2025-04-06 09:24] LABS: Base Excess 8 (-3-3); HCO3 39 mEq/L (20-26); O2 Saturation 92 % (91-98); PCO2 111 mmHg (32.0-48.0); PO2 65 mmHg (83-108)
[2025-04-06 09:25] LABS: Allen Test Performed/OK; Inspired Oxygen, FIO2 100 %; Puncture Site Right Brachial
[2025-04-06 09:26] LABS: pH, Arterial 7.16 (7.35-7.45)
[2025-04-06] MEDS: DEXTROSE 50%-WATER INJ 50 ML SYRINGE IV ×3 (09:53→21:07)
[2025-04-06] MEDS: ALBUMIN HUMAN 25% IVPB 25 GM/100 ML BTL IV (10:04)
[2025-04-06] MEDS: DOCUSATE SOD LIQD 100 MG/10 ML UDC GT (10:04)
[2025-04-06] MEDS: PHENobarbitaL 32.4 MG TABLET GT ×2 (10:23→20:53)
[2025-04-06] MEDS: SENNA TABLET 1 TAB GT (10:23)
[2025-04-06] MEDS: TOPIRAMATE 100 MG TABLET 200 MG GT ×2 (10:24→20:53)
[2025-04-06] MEDS: Norepinephrine/NS 16mg/250ml 16 MG/250 ML BAG 64.519 MG IV (10:47)
[2025-04-06 11:33] LABS: Reflex Lactate? Y
[2025-04-06 12:13] LABS: Lactic Acid, 3 HR 3.1 mMol/L (0.4-2.0)
[2025-04-06] MEDS: HYDROCORTISONE SOD SUCC INJ 100 MG VIAL 50 MG IV ×3 (12:17→23:53)
--- NOTE | 2025-04-06 12:33 | ESPR_ITS ---
<Statement entered by Isacc Tinajero MD - 04/07/25 10:56> TOTAL CC TIME: 65 MIN I saw and evaluated the patient. I reviewed the resident?s note and agree with findings and plan as documented in the resident?s note. Upon my evaluation, this patient had a high probability of imminent or life- threatening deterioration due to very severe ARDS, ATN, which required my direct attention, intervention, and personal management. This time is exclusive of time spent on procedures, which are documented separately if performed. Patient's noncompliance is very very low. PEEP stress testing was performed and there was no benefit at providing a PEEP of 8 compared to 5 cm H2O. Therefore PEEP was reduced to reduce the overall plateau pressure. Nonetheless Plateau pressure, and driving pressure remained above goal. Continue broad-spectrum antibiotics and aggressive care. We discussed goals of care with family at the bedside. Patient's mother and father declined initiation of hemodialysis and he did not think their son was in a condition for more invasive care. They have also asked us to change CODE STATUS to DNR. We are continuing current ICU management and will also attempt tube feeding. Although the prognosis is very poor, we are hoping that his lung compliance and renal function may improve. Volume status is consistent with a resuscitated state based off IVC exam. No evidence of significant biliary sludge or obvious Stevens's based off residents ultrasound review. Documentation for date of: 04/06/25 Subjective Subjective Interval history: 35-year-old male with past medical history of cerebral palsy, seizures on phenobarbital and topiramate, status post PEG tube and tracheostomy, history of empyema and Pseudomonas pneumonia, who presented to the ED with tachypnea and desaturation around 70%. Per the caregiver symptom onset around a week ago with associated congestion and cough with pinkish phlegm as well as fever and chills. Patient is admitted for Acute hypoxic respiratory failure secondary to Ventilator associated pneumonia + Covid pneumonia. ED course: ED vitals: BP 106 64, HR 97, RR 22, temp 97.1 ?F, O2 saturation 71%. ED labs: Thrombocytopenia, ABG with pH 7.39, with low PO2, CHEM panel mostly unremarkable aside from elevated liver enzymes and alk phos, procalcitonin 2.06, lactic acid 5.3. ED Dx: Chest x-ray shows significant bilateral pneumonia patient was found to also be positive for COVID-19. ED treatment: Zosyn, dexamethasone, doxycycline, DuoNebs, 1 L IVF's 03/31/2025 ICU consulted for sepsis, secondary COVID pneumonia complicated with hemoptysis and acute hypoxic respiratory failure requiring mechanical ventilation via tracheostomy. 04/01/2025: Patient test positive for COVID and started on Dexamethasone 6 mg Qday for the next 10 days and Remdesivir 250 mg X 1 first dose today, followed by 100 mg IV starting tomorrow. Morning chest x-ray noted for left lober pneumonia, resumed antibiotics. Holding off any food feedings. Confirmed with family, at home silvio was not using a by blow. 04/02/2025: No overnight events. Marissanet examined at bedside and continues to have diffuse rhonchi. Patient desating to spO2 of 88%. Patinet noted to not be in sync with ventilator. Patient started on Fenantly and Propofol drip. Versed 2 mg X1 given. D/C Vancomycin as Blood culture negative and urine culture negative. 04/03/2025: Overnight respiratory acidosis per ABG, now pH 7.07. Bicarbonate Added. No adjustments made on ventilator. Additional breathing treatment added. No changes in peak pressure after albuterol treatment. P/F ration 167.5, moderate ARDS. Levo 0.23, Fentantly 300 mcg/kg, Propo 50 mcg/kg/min, vasopressin 0.03 units. Nimbex D/C. 04/04/2025: Patient continues to have significant hypoxia more so hypercapnia. With significant air trapping after adjustments overnight to care evaluation with increasing requirements for vasopressors. Increased bicarbonate drip to compensate for respiratory acidosis. Patient continues to have urinary output is stable although creatinine rising. Patient's gas exchange otherwise improved after adjustments with reduction in air trapping and further optimization of IT ratio. Plateau pressure remains elevated right at 30. However I did decrease tidal volume and adjust flow to minimize peak pressures which have had minimal improvement. Patient's family at bedside. Culture data remains unchanged on appropriate antibiotic and antibiotic regimen. 04/05/2025: No overnight events. This morning Levophed rate of 0.81 mcg per kg/min, titrating down, Proofolol at 50 mcg/kg STOPPED today/reduce amount of fluids, Vasopressin 0.03 unts. Fenatly 300 mcg/r--->decreased by 25% to 225 mcg/hr and Oxycodone 20 mg PO QID. Respiratory acidosis at ABG pH 7.22, bicarbonate drip holding. Follow up on repeat ABG given serum bicarbon >40. Continue antibiotics. Repeat chest x-ray, increased lower lobe consolidation on left lung field. Lasix X 1, increased perpheral edema. Repeat ABG at 3 PM. Holding Heparin given thrombocytopenia. P/F ratio 214 (morning ABG) 04/06/2025: Patient had episode of SVT yesterday (see event note). Urine output decreased overnight to 200 for the last 12 hours. Continues to have high peak pressures in the 40s and P plateau 37. Did PEEP stress test at bedside. When PEEP pressures decreased from 8 to 5, plateau pressures decreased proportionately from 42 to 38. Therefore, will continue PEEP pressure at 5 and reassess plateau pressures throughout the day. Will continue tidal volume at 280 at current rate for hypercapnia. Will start tube feeds, stress dose steroids. Remains on moderate dose levophed. Bedside IVC did not show collapsibility. Discussed with family at bedside given patient's guarded prognosis. Explained that patient may need to have dialysis if renal function does not improve. Family felt that dialysis would be too much for patient at this time. Explained that if that felt too aggressive, then doing chest compressions/CPR/resuscitative efforts would also have limited benefit given patient's overall status. Family verbalized understanding and ultimately decided to change code status from full code to DNR. Exam Vital Signs Temp Pulse Resp BP Pulse Ox O2 Del Method O2 Flow Rate 97.8 F 102 H 19 130/55 L 88 L Mechanical Ventilation 30 04/06/25 08:00 04/06/25 10:47 04/06/25 10:40 04/06/25 10:47 04/06/25 10:40 04/06/25 08:00 03/31/25 06:16 FiO2 100 04/06/25 08:00 Narrative Exam Constitutional: Sedated. No acute distress. HEENT: NCAT. Respiratory: Diffuse bilateral crackles. Tracheal tube in place. Cardiac: Regular rate, rhythm. Abdomen: Abdomen soft, but distended. PEG tube in place. No grimmacing on palpation. MSK: 2+ bilateral edema. Contracted extremities. Skin: Warm, dry, intact. Neuro: E1 VNT MNT Objective Labs 04/06/25 06:02 04/06/25 06:02 Labs: Laboratory Results - last 24 hr 04/05/25 04/05/25 04/05/25 15:45 16:58 18:53 WBC RBC Hgb Hct MCV MCH MCHC RDW Std Deviation Plt Count Neut % (Auto) Lymph % (Auto) Doddridge % (Auto) Eos % (Auto) Baso % (Auto) Neut # (Auto) Lymph # (Auto) Doddridge # (Auto) Eos # (Auto) Baso # (Auto) Immature Gran # (Auto) Absolute Nucleated RBC Immature Gran % Nucleated RBC % Puncture Site ABG pH ABG pCO2 ABG pO2 ABG HCO3 ABG O2 Saturation ABG Base Excess VBG pH 7.26 L 7.23 L VBG pCO2 95 H 101 H VBG pO2 56 48 VBG O2 Sat (Sarika) 91 L 83 L VBG Base Excess 12 H 10 H FiO2 Sodium 160 H Potassium 3.6 Chloride 109 H Carbon Dioxide > 40.0 H Anion Gap 11 BUN 21 Creatinine 1.3 Estim Creat Clear Calc 47.7 L eGFR > 60 BUN/Creatinine Ratio 16 Glucose 88 Calculated Osmolality 318 H Lactic Acid 4.9 H* Calcium 7.1 L Corrected Calcium 8.4 L Phosphorus 3.6 Magnesium Total Bilirubin Direct Bilirubin AST ALT Alkaline Phosphatase Troponin I < 0.020 Total Protein Albumin 2.4 L Globulin Albumin/Globulin Ratio [facility] Test Result 04/05/25 04/05/25 04/06/25 21:12 21:55 00:48 WBC RBC Hgb Hct MCV MCH MCHC RDW Std Deviation Plt Count Neut % (Auto) Lymph % (Auto) Doddridge % (Auto) Eos % (Auto) Baso % (Auto) Neut # (Auto) Lymph # (Auto) Doddridge # (Auto) Eos # (Auto) Baso # (Auto) Immature Gran # (Auto) Absolute Nucleated RBC Immature Gran % Nucleated RBC % Puncture Site ABG pH ABG pCO2 ABG pO2 ABG HCO3 ABG O2 Saturation ABG Base Excess VBG pH 7.23 L VBG pCO2 95 H VBG pO2 123 H D VBG O2 Sat (Sarika) 99 H D VBG Base Excess 9 H FiO2 Sodium 158 H 155 H Potassium 4.8 D 5.2 H Chloride 110 H 107 Carbon Dioxide > 40.0 H 39.8 H Anion Gap 8 8 BUN 22 23 Creatinine 1.4 H 1.4 H Estim Creat Clear Calc 44.3 L 44.3 L eGFR > 60 > 60 BUN/Creatinine Ratio 16 16 Glucose 94 86 Calculated Osmolality 316 H 310 H Lactic Acid 4.9 H* Calcium 6.9 L 6.8 L* Corrected Calcium 8.3 L 8.2 L Phosphorus 3.7 4.1 Magnesium Total Bilirubin Direct Bilirubin Cancelled AST ALT Alkaline Phosphatase Troponin I Total Protein Albumin 2.3 L 2.2 L Globulin Albumin/Globulin Ratio Mis Test Result 04/06/25 04/06/25 04/06/25 04:50 06:02 08:23 WBC 11.8 H D RBC 3.02 L Hgb 10.5 L Hct 31.5 L MCV 104 H MCH 34.8 MCHC 33.3 RDW Std Deviation 62.1 H Plt Count 76 L D Neut % (Auto) 86 H Lymph % (Auto) 5 L Doddridge % (Auto) 8 Eos % (Auto) 0 Baso % (Auto) 0 Neut # (Auto) 10.2 H Lymph # (Auto) 0.5 L Doddridge # (Auto) 0.9 H Eos # (Auto) 0.0 Baso # (Auto) 0.0 Immature Gran # (Auto) 0.17 H Absolute Nucleated RBC 0.13 H Immature Gran % 1 H Nucleated RBC % 1 H Puncture Site Left Radial ABG pH 7.17 L* ABG pCO2 106 H* ABG pO2 80 L D ABG HCO3 39 H ABG O2 Saturation 96 ABG Base Excess 8 H VBG pH VBG pCO2 VBG pO2 VBG O2 Sat (Sarika) VBG Base Excess FiO2 100 Sodium 152 H Potassium 5.2 H Chloride 106 Carbon Dioxide 38.6 H Anion Gap 7 BUN 22 Creatinine 1.5 H Estim Creat Clear Calc 41.3 L eGFR > 60 BUN/Creatinine Ratio 15 Glucose 68 L Calculated Osmolality 303 H Lactic Acid 2.6 H Calcium 6.7 L* Corrected Calcium 8.1 L Phosphorus 4.2 Magnesium 2.2 Total Bilirubin 4.1 H D Direct Bilirubin 2.9 H AST 63 H ALT 14 Alkaline Phosphatase 179 H D Troponin I Total Protein 4.6 L Albumin 2.2 L Globulin 2.4 Albumin/Globulin Ratio 0.9 L Misc Test Result Platelets confirmed 04/06/25 09:15 WBC RBC Hgb Hct MCV MCH MCHC RDW Std Deviation Plt Count Neut % (Auto) Lymph % (Auto) Doddridge % (Auto) Eos % (Auto) Baso % (Auto) Neut # (Auto) Lymph # (Auto) Doddridge # (Auto) Eos # (Auto) Baso # (Auto) Immature Gran # (Auto) Absolute Nucleated RBC Immature Gran % Nucleated RBC % Puncture Site Right Brachial ABG pH 7.16 L* ABG pCO2 111 H* ABG pO2 65 L ABG HCO3 39 H ABG O2 Saturation 92 ABG Base Excess 8 H VBG pH VBG pCO2 VBG pO2 VBG O2 Sat (Sarika) VBG Base Excess FiO2 100 Sodium Potassium Chloride Carbon Dioxide Anion Gap BUN Creatinine Estim Creat Clear Calc eGFR BUN/Creatinine Ratio Glucose Calculated Osmolality Lactic Acid Calcium Corrected Calcium Phosphorus Magnesium Total Bilirubin Direct Bilirubin AST ALT Alkaline Phosphatase Troponin I Total Protein Albumin Globulin Albumin/Globulin Ratio Misc Test Result ABG Interpretation ABG results: 03/31/25 04/01/25 04/02/25 05: 04:20 03:30 ABG pH 7.39 7.38 7.29 L ABG pCO2 35 35 39 ABG pO2 59 L* 77 L 56 L* D ABG HCO3 21 21 19 L ABG O2 Saturation 93 97 89 L ABG Base Excess -3 -4 L -7 L VBG pH VBG pCO2 VBG pO2 VBG Base Excess 04/02/25 04/02/25 04/02/25 10:18 13:45 15:13 ABG pH 7.24 L 6.98 L* D 7.02 L* ABG pCO2 44 90 H* D 79 H* D ABG pO2 74 L 79 L 79 L ABG HCO3 19 L 21 20 ABG O2 Saturation 95 91 93 ABG Base Excess -9 L -12 L -12 L VBG pH VBG pCO2 VBG pO2 VBG Base Excess 04/02/25 04/03/25 04/03/25 19:10 04:40 18:40 ABG pH 7.07 L* 7.07 L* 7.14 L* ABG pCO2 71 H* 70 H 71 H* ABG pO2 122 H D 134 H 74 L D ABG HCO3 20 20 24 ABG O2 Saturation 99 H 100 H 96 ABG Base Excess -11 L -11 L -6 L VBG pH VBG pCO2 VBG pO2 VBG Base Excess 04/04/25 04/04/25 04/05/25 04:35 13:50 05:17 ABG pH 7.12 L* 7.18 L* ABG pCO2 85 H* D 113 H* D ABG pO2 96 D 45 L* D ABG HCO3 28 H 42 H ABG O2 Saturation 98 82 L ABG Base Excess -3 10 H VBG pH 7.14 L VBG pCO2 93 H VBG pO2 58 VBG Base Excess 0 04/05/25 04/05/25 04/05/25 09:00 11:30 15:45 ABG pH 7.22 L ABG pCO2 105 H* ABG pO2 53 L* ABG HCO3 43 H ABG O2 Saturation 96 ABG Base Excess 12 H VBG pH 7.26 L 7.26 L VBG pCO2 96 H 95 H VBG pO2 47 56 VBG Base Excess 12 H 12 H 04/05/25 04/05/25 04/06/25 16:58 21:55 04:50 ABG pH 7.17 L* ABG pCO2 106 H* ABG pO2 80 L D ABG HCO3 39 H ABG O2 Saturation 96 ABG Base Excess 8 H VBG pH 7.23 L 7.23 L VBG pCO2 101 H 95 H VBG pO2 48 123 H D VBG Base Excess 10 H 9 H 04/06/25 09:15 ABG pH 7.16 L* ABG pCO2 111 H* ABG pO2 65 L ABG HCO3 39 H ABG O2 Saturation 92 ABG Base Excess 8 H VBG pH VBG pCO2 VBG pO2 VBG Base Excess Quality Measures Quality Measures none Assessment & Plan Assessment Current Active Medications: Generic Name Dose Route Start Last Admin Trade Name Freq PRN Reason Stop Dose Admin Acetaminophen 650 mg 03/31/25 09:08 03/31/25 10:57 Acetaminophen 325 Mg Tablet PO 04/30/25 09:07 650 mg Q6H PRN Administration Fever >101.5 Acetaminophen 650 mg 03/31/25 09:14 Acetaminophen 325 Mg Tablet PO 04/30/25 09:13 Q6H PRN PAIN SCALE 1-3 (mild Albuterol/Ipratropium 3 ml 03/31/25 11:00 04/06/25 06:50 Albuterol/Ipratropium (Duoneb) Rt Naila 3 Ml Nebu INH 04/30/25 10:59 3 ml Q4HRRT KATEY Administration Artificial Tears 0 drop 04/05/25 11:42 04/05/25 12:14 Artificial Tears 225 Drop/15 Ml Btl BOTH EYES 05/05/25 11:41 1 drop PRN PRN Administration TO KEEP EYES MOIST Baclofen 40 mg 03/31/25 21:00 04/02/25 08:17 Baclofen 10 Mg Tablet PO 04/30/25 20:59 40 mg BID KATEY Administration Protocol Baclofen 30 mg 04/01/25 15:00 04/02/25 14:05 Baclofen 10 Mg Tablet PO 05/01/25 14:59 30 mg 1500 KATEY Administration Clorazepate 3.75 Mg 0 ea 03/31/25 21:00 04/02/25 20:59 Tablet PO 04/30/25 20:59 1 tablet BID KATEY Administration Docusate Sodium 100 mg 04/02/25 09:00 04/06/25 10:04 Docusate Sod Liqd 100 Mg/10 Ml Udc GT 05/01/25 08:59 100 mg QDAY KATEY Administration Protocol Heparin Sodium (Porcine) 5,000 unit 03/31/25 21:00 04/04/25 20:39 Heparin Sod Inj 5000 Unit/Ml Vial SC 04/14/25 20:59 5,000 unit BID KATEY Administration Hydrocortisone Sodium Succinate 50 mg 04/06/25 12:00 04/06/25 12:17 Hydrocortisone Sod Succ Inj 100 Mg Vial IV 05/06/25 11:59 50 mg Q6HR KATEY Administration Piperacillin/Tazobactam/Dextrose 3.375 gm in 50 mls @ 12.5 mls/hr 04/01/25 14:00 04/06/25 05:19 Zosyn IV 04/08/25 13:59 12.5 mls/hr Q8HR KATEY Administration Propofol 1,000 mg in 100 mls @ 1.332 mls/hr 04/02/25 08:22 04/05/25 07:43 Diprivan Ivpb IV 05/02/25 08:21 0 mcg/kg/min .Q24H PRN 0 mls/hr PER PROTOCOL Titration Protocol 5 MCG/KG/MIN Norepinephrine Bitartrate 16 mg in 250 mls @ 2.081 mls/hr 04/02/25 09:16 04/06/25 12:32 Levophed In Ns 16mg/250ml IV 05/02/25 09:15 1.53 mcg/kg/min .Q24H PRN 63.686 mls/hr PER protocol Titration Protocol 0.05 MCG/KG/MIN Fentanyl Citrate 2,500 mcg in 250 mls @ 2.5 mls/hr 04/02/25 12:00 04/06/25 06:00 Sublimaze Inj 2,500 Mcg/250 Ml Bag IV 04/07/25 08:06 225 mcg/hr .Q24H PRN 22.5 mls/hr PER PROTOCOL Titration Protocol 25 MCG/HR Vasopressin/Sodium Chloride 20 unit in 100 mls @ 9 mls/hr 04/02/25 17:37 04/05/25 22:38 Vasostrict/Ns Ivpb IV 05/02/25 17:36 0.03 unit/min .Q11H7M PRN 9 mls/hr PER PROTOCOL Administration Protocol 0.03 UNIT/MIN Sodium Bicarbonate 150 meq/ 500 mls @ 20 mls/hr 04/05/25 10:14 04/05/25 11:55 Dextrose IV 05/05/25 10:13 Not Given .Q24H KATEY Protocol Amiodarone HCl/Dextrose 360 mg in 200 mls @ 16.667 mls/hr 04/05/25 23:14 04/05/25 23:22 Nexterone Ivpb IV 04/06/25 23:13 16.667 mls/hr .Q12H KATEY Administration Albumin Human 25 gm in 100 mls @ 100 mls/hr 04/06/25 07:48 04/06/25 10:04 Albuminar-25 Ivpb IV 04/09/25 07:47 100 mls/hr QDAY KATEY Administration Ondansetron HCl 4 mg 03/31/25 09:14 Ondansetron Inj 2 Mg/Ml Inj 2 Ml IV 04/30/25 09:13 Q6H PRN NAUSEA OR VOMITING Protocol Pantoprazole Sodium 40 mg 04/07/25 09:00 Pantoprazole Inj 40 Mg Vial IVP 05/07/25 08:59 QDAY [facility] Pharmacy Consult 1 each 03/31/25 20:46 Pharmacy To Consult Patient XX 04/30/25 20:45 PRN PRN CONSULT Phenobarbital 32.4 mg 03/31/25 09:45 04/06/25 10:23 Phenobarbital 32.4 Mg Tablet GT 04/14/25 09:44 32.4 mg BID KATEY Administration Sennosides 1 tab 04/03/25 08:03 04/06/25 10:23 Senna Tablet GT 05/01/25 08:59 1 tab QDAY [facility] Administration Protocol Topiramate 200 mg 03/31/25 09:45 04/06/25 10:24 Topiramate 100 Mg Tablet GT 04/30/25 09:44 200 mg BID [facility] Administration Plan 35-year-old male with past medical history of cerebral palsy, seizures on phenobarbital and topiramate, status post PEG tube and tracheostomy, history of empyema and Pseudomonas pneumonia who was admitted on 03/31/2025 for sepsis secondary to acute hypoxic respiratory failure and ARDS due to pseudomonas pneumonia, COVID. 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 Start stress dose steroids hydrocortisone 50mg Q6H RRX: SVT improved with amiodarone drip (see below). Bedside POCUS for IVC did not show collapsibility, indicating not responsive to fluids Lactic acid improving, suggesting improvement from perfusion standpoint. SVT, resolved Multi-factorial due to underlying sepsis, metabolic demand, hypercapnia. On amiodarone drip. Will transition to oral amiodarone once drip completes. Respi Problem: Acute hypoxic respiratory failure, ARDS DDX: Pseudomonas pneumonia DX: P:F ratio, ABG, CXR, check Plateau pressures RX: IV Antibiotics, albuterol breathing treatment RRX: Still hypoxic at 86% despite FiO2 at 100%. Lowered PEEP from 8 to 5 with appropriate decrease in plateau pressure from 42 to 39. Peak pressure 52. Renal Problem: CASSANDRA, Hyperkalemia, hypernatremia DDX: Pre-renal, ATN DX: BUN, Cr, hourly urine output, follow renal panel RX: possible dialysis, maintain MAP > 60 for renal perfusion, albumin RRX: Patient had good response to Diamox, Lasix challenge yesterday. May consider albumin with Lasix challenge. Respiratory acidosis with metabolic alkalosis Compensating for respiratory acidosis. Allowing respiratory acidosis for permissive hypercapnia in the setting of ARDS. GI Problem: Hyperbilirubinemia DDX: Medication induced, gallstone/biliary sludge, acute acalculuous cholecystitis DX: POCUS gallbladder, direct bilirubin RX: IV antibiotics RRX: Abdominal exam Cholestatic pattern however POCUS did not show ela sludge or thickened gallbladder wall. Will review medications if hyperbilirubinemia is side effect. Endo Problem: Hypoglycemia DDX: DX: Glucose checks Q1H RX: Start tube feeds RRX: Improved with amps of D50. Will start tube feeds and check blood sugar checks Q1H until euglycemic. Heme Problem: Thrombocytopenia DDX: sepsis, medication side effect DX: RX: RRX: Continue heparin for DVT prophylaxis, hold if platelets < 50 ID Problem: Pseudomonas pneumonia DDX: DX: Sputum culture RX: Zosyn RRX: COVID positive, resolved Completed 5 days of remdesevir and dexamethasone. Health Maintenance Disposition: Admit to ICU for AHRF ARDS Pseudomonas PNA with impending renal failure Diet and fluids: tube feeds DVT prophylaxis: heparin GI prophylaxis: protonix Lines: RIJ, tracheostomy tube, Davis, PEG tube, PIV CODE STATUS: DNR/DNI I have reviewed and discussed the patient's care with my attending, Dr. Tinajero, Mackenzie Herrmann MD PGY-3
[2025-04-06] MEDS: AMIODARONE 360 MG IVPB 360 MG/200 ML BAG 16.667 MG IV (13:07)
[2025-04-06] MEDS: DEXTROSE 50%-WATER INJ 50 ML SYRINGE 25 ML IV (14:29)
[2025-04-06] MEDS: Norepinephrine/NS 16mg/250ml 16 MG/250 ML BAG 63.686 MG IV (15:09)
[2025-04-06] MEDS: ALTEPLASE RECOMB INJ 2 MG VIAL INDWELLCAT (16:10)
--- NOTE | 2025-04-06 17:56 | PC.NURSE ---
unable to flush brown port, Dr. Herrmann notified, cathflow ordered and administered into catheter, cathflow removed along with 5 ml and flushed
[2025-04-06] MEDS: FUROSEMIDE INJ 10 MG/ML 4ML VIAL 40 MG IVP (19:25)
[2025-04-06 20:09] LABS: Base Excess, Venous 5 (-3-3); O2 Saturation, Venous 94 % (96-97); PCO2, Venous 107 mmHg (36-56); PO2, Venous 76 mmHg (15-58); pH, Venous 7.14 (7.33-7.66)
[2025-04-06] MEDS: Norepinephrine/NS 16mg/250ml 16 MG/250 ML BAG 60.356 MG IV (23:22)
[2025-04-07] VITALS (97 sets, daily range): BP systolic 85–130; BP diastolic 48–88; PULSE 84–100; RESP 0–31; TEMP 36.1–36.6; O2SAT 86–90; BMI 34.7
[2025-04-07] MEDS: AMIODARONE 360 MG IVPB 360 MG/200 ML BAG 16.667 MG IV (00:56)
[2025-04-07] MEDS: DEXTROSE 50%-WATER INJ 50 ML SYRINGE IV (02:03)
[2025-04-07] MEDS: ALBUTEROL/IPRATROPIUM (Duoneb) RT SOL 3 ML NEBU INH ×5 (02:49→18:44)
[2025-04-07] MEDS: Norepinephrine/NS 16mg/250ml 16 MG/250 ML BAG 53.696 MG IV (03:56)
[2025-04-07] MEDS: PIPER/TAZO 3.375 GM PREMIX 3.375 GM/50 ML BAG IV ×2 (05:10→15:40)
[2025-04-07] MEDS: HYDROCORTISONE SOD SUCC INJ 100 MG VIAL 50 MG IV ×3 (05:10→17:42)
[2025-04-07 05:16] LABS: Base Excess 3 (-3-3); HCO3 36 mEq/L (20-26); Inspired Oxygen, FIO2 100 %; O2 Saturation 90 % (91-98); PCO2 126 mmHg (32.0-48.0); PO2 62 mmHg (83-108)
[2025-04-07 05:27] LABS: Allen Test Not Performed; Puncture Site Left Radial; pH, Arterial 7.06 (7.35-7.45)
[2025-04-07] MEDS: VASOPRESSIN IN NS IVPB 20 UNIT/100 ML BAG 9 UNIT IV (06:18)
[2025-04-07 06:55] LABS: Basophils % (Auto) 0 % (0-2.5); Eosinophils % (Auto) 0 % (0-10); Hematocrit 27.7 % (41.0-53.0); Immature Granulocytes % (Auto) 2 % (0-0); Immature Granulocytes Auto 0.24 Thou/mm3 (0.00-0.00); Lymphocytes # (Auto) 0.8 Thou/mm3 (1.0-4.8); Lymphocytes % (Auto) 7 % (10-50); Mean Corpuscular HGB Conc 31.8 g/dl (31.0-37.0); Mean Corpuscular Hemoglobin 35.1 pg (25.0-35.0); Mean Corpuscular Volume 110 fL (80-100); Monocytes # (Auto) 0.7 Thou/mm3 (0.0-0.8); Monocytes % (Auto) 6 % (0-12); Neutrophils % (Auto) 84 % (37-80); Nucleated Red Blood Cell # 0.17 Thou/mm3 (0.00-0.00); Nucleated Red Blood Cell % 2 /100 WBC (0); RDW Standard Deviation 66.7 fL (35.1-43.9); Red Blood Count 2.51 Miln/mm3 (4.50-5.90); White Blood Count 10.7 Thou/mm3 (3.8-10.6)
[2025-04-07 06:57] LABS: Hemoglobin 8.8 g/dL (13.5-16.0); Platelet Count 67 Thou/mm3 (140-440)
[2025-04-07 07:01] LABS: Alanine Aminotransferase 12 U/L (10-49); Albumin, Serum 2.5 gm/dL (3.5-5.0); Alkaline Phosphatase 175 U/L (46-116); Anion Gap 6 (7-16); Aspartate Amino Transferase 70 U/L (0-34); BUN/Creatinine Ratio 14 Ratio (12-20); Bilirubin,Total 5.4 mg/dL (0.3-1.2); Blood Urea Nitrogen 26 mg/dL (9-23); Carbon Dioxide 36.9 mMol/L (20.0-31.0); Chloride 105 mMol/L (98-107); Creatinine (Component) 1.9 mg/dL (0.6-1.3); Estimated Creatinine Clearance 32.8 mL/min (>60); Globulin 2.5 gm/dL (2.3-3.5); Glucose 121 mg/dL (74-106); Magnesium 2.1 mg/dL (1.6-2.6); Osmolality,Calculated 299 (275-295); Phosphorous 4.3 mg/dL (2.4-5.1); Potassium 4.5 mMol/L (3.4-5.1); Sodium 148 mMol/L (136-145); eGFR 47 See Note
[2025-04-07 07:03] LABS: Calcium 6.8 mg/dL (8.3-10.6)
[2025-04-07 07:45] LABS: Slide Review Platelets confirmed
[2025-04-07 07:56] LABS: Band Neutrophils (Manual) 28 % (0-6)
[2025-04-07] MEDS: Norepinephrine/NS 16mg/250ml 16 MG/250 ML BAG 48.701 MG IV ×2 (09:05→14:55)
[2025-04-07] MEDS: PANTOPRAZOLE INJ 40 MG VIAL IVP (09:06)
[2025-04-07 09:11] LABS: Path Review Blood Smear Sent to Pathologist
[2025-04-07] MEDS: PHENobarbitaL 32.4 MG TABLET GT (09:24)
[2025-04-07] MEDS: SENNA TABLET 1 TAB GT (09:24)
[2025-04-07] MEDS: TOPIRAMATE 100 MG TABLET 200 MG GT (09:25)
[2025-04-07] MEDS: DEXTROSE 50%-WATER INJ 50 ML SYRINGE 25 ML IV (09:37)
--- NOTE | 2025-04-07 10:39 | ESPR_ITS ---
<Statement entered by Isacc Tinajero MD - 04/08/25 08:01> TOTAL CC TIME: 45 MIN I saw and evaluated the patient. I reviewed the resident?s note and agree with findings and plan as documented in the resident?s note. Upon my evaluation, this patient had a high probability of imminent or life- threatening deterioration due to very severe ARDS and ATN, septic shock which required my direct attention, intervention, and personal management. This time is exclusive of time spent on procedures, which are documented separately if performed. No improvements identified. Lung compliance remains very poor. Renal failure is worsening. We discussed dialysis needs again with the family and they declined. We met with the patient's mother and father again in went through systems-based review of their son's medical problems. Ultimately they felt it was best to proceed with comfort care due to his prolonged ICU stay, persistent critical care problems, lack of significant improvement, and baseline poor functional state. Documentation for date of: 04/07/25 Subjective Subjective Interval history: 35-year-old male with past medical history of cerebral palsy, seizures on phenobarbital and topiramate, status post PEG tube and tracheostomy, history of empyema and Pseudomonas pneumonia, who presented to the ED with tachypnea and desaturation around 70%. Per the caregiver symptom onset around a week ago with associated congestion and cough with pinkish phlegm as well as fever and chills. Patient is admitted for Acute hypoxic respiratory failure secondary to Ventilator associated pneumonia + Covid pneumonia. ED course: ED vitals: BP 106 64, HR 97, RR 22, temp 97.1 ?F, O2 saturation 71%. ED labs: Thrombocytopenia, ABG with pH 7.39, with low PO2, CHEM panel mostly unremarkable aside from elevated liver enzymes and alk phos, procalcitonin 2.06, lactic acid 5.3. ED Dx: Chest x-ray shows significant bilateral pneumonia patient was found to also be positive for COVID-19. ED treatment: Zosyn, dexamethasone, doxycycline, DuoNebs, 1 L IVF's 03/31/2025 ICU consulted for sepsis, secondary COVID pneumonia complicated with hemoptysis and acute hypoxic respiratory failure requiring mechanical ventilation via tracheostomy. 04/01/2025: Patient test positive for COVID and started on Dexamethasone 6 mg Qday for the next 10 days and Remdesivir 250 mg X 1 first dose today, followed by 100 mg IV starting tomorrow. Morning chest x-ray noted for left lober pneumonia, resumed antibiotics. Holding off any food feedings. Confirmed with family, at home amber was not using a by blow. 04/02/2025: No overnight events. Amber examined at bedside and continues to have diffuse rhonchi. Patient desating to spO2 of 88%. Patichitra noted to not be in sync with ventilator. Patient started on Fenantly and Propofol drip. Versed 2 mg X1 given. D/C Vancomycin as Blood culture negative and urine culture negative. 04/03/2025: Overnight respiratory acidosis per ABG, now pH 7.07. Bicarbonate Added. No adjustments made on ventilator. Additional breathing treatment added. No changes in peak pressure after albuterol treatment. P/F ration 167.5, moderate ARDS. Levo 0.23, Fentantly 300 mcg/kg, Propo 50 mcg/kg/min, vasopressin 0.03 units. Nimbex D/C. 04/04/2025: Patient continues to have significant hypoxia more so hypercapnia. With significant air trapping after adjustments overnight to care evaluation with increasing requirements for vasopressors. Increased bicarbonate drip to compensate for respiratory acidosis. Patient continues to have urinary output is stable although creatinine rising. Patient's gas exchange otherwise improved after adjustments with reduction in air trapping and further optimization of IT ratio. Plateau pressure remains elevated right at 30. However I did decrease tidal volume and adjust flow to minimize peak pressures which have had minimal improvement. Patient's family at bedside. Culture data remains unchanged on appropriate antibiotic and antibiotic regimen. 04/05/2025: No overnight events. This morning Levophed rate of 0.81 mcg per kg/min, titrating down, Proofolol at 50 mcg/kg STOPPED today/reduce amount of fluids, Vasopressin 0.03 unts. Fenatly 300 mcg/r--->decreased by 25% to 225 mcg/hr and Oxycodone 20 mg PO QID. Respiratory acidosis at ABG pH 7.22, bicarbonate drip holding. Follow up on repeat ABG given serum bicarbon >40. Continue antibiotics. Repeat chest x-ray, increased lower lobe consolidation on left lung field. Lasix X 1, increased perpheral edema. Repeat ABG at 3 PM. Holding Heparin given thrombocytopenia. P/F ratio 214 (morning ABG) 04/06/2025: Patient had episode of SVT yesterday (see event note). Urine output decreased overnight to 200 for the last 12 hours. Continues to have high peak pressures in the 40s and P plateau 37. Did PEEP stress test at bedside. When PEEP pressures decreased from 8 to 5, plateau pressures decreased proportionately from 42 to 38. Therefore, will continue PEEP pressure at 5 and reassess plateau pressures throughout the day. Will continue tidal volume at 280 at current rate for hypercapnia. Will start tube feeds, stress dose steroids. Remains on moderate dose levophed. Bedside IVC did not show collapsibility. Discussed with family at bedside given patient's guarded prognosis. Explained that patient may need to have dialysis if renal function does not improve. Family felt that dialysis would be too much for patient at this time. Explained that if that felt too aggressive, then doing chest compressions/CPR/resuscitative efforts would also have limited benefit given patient's overall status. Family verbalized understanding and ultimately decided to change code status from full code to DNR. 04/07/2025: Overnight, tube feeds were discontinued due to high residuals at 500cc. On physical exam, patient has anasarca. He is saturating between 85-89%. His plateau pressure was 33 and driving pressure of 27. Labs show acidosis with pH of 7.06 and severe hypercapnia at 126. He was hypoglycemic requiring multiple amps of D50. He was oliguric at 300cc of urine overnight. Family updated at bedside. Patient not a candidate for dialysis due to his multiple co-morbidities, and can only do medical management at this point. Guarded prognosis relayed to family who verbalized understanding and explained option of comfort care measures. Recommended if any other family members to visit now would be the time. Family taking time to think at and decide about comfort care. Exam Vital Signs Temp Pulse Resp BP Pulse Ox O2 Del Method O2 Flow Rate 97.9 F 87 28 H 109/49 L 87 L Mechanical Ventilation 30 05/12/25 00:00 04/07/25 10:24 04/07/25 10:24 04/07/25 10:24 04/07/25 10:24 04/06/25 16:00 03/31/25 06:16 FiO2 100 04/07/25 10:24 Narrative Exam Constitutional: Sedated. No acute distress. Anasarca. HEENT: NCAT. Yellow eye discharge noted on bilateral lower lids. Respiratory: Diffuse bilateral crackles. Tracheal tube in place. Cardiac: Regular rate, rhythm. Abdomen: Abdomen firm, distended. PEG tube in place. No grimacing on palpation. MSK: 4+ bilateral edema. Contracted extremities. Neuro: E1 VNT MNT Objective Labs 04/07/25 04:49 04/07/25 04:49 Labs: Laboratory Results - last 24 hr 04/06/25 04/06/25 04/07/25 12:00 19:44 04:49 WBC 10.7 H RBC 2.51 L Hgb 8.8 L Hct 27.7 L MCV 110 H MCH 35.1 H MCHC 31.8 RDW Std Deviation 66.7 H Plt Count 67 L Neut % (Auto) 84 H Lymph % (Auto) 7 L [place] % (Auto) 6 Eos % (Auto) 0 Baso % (Auto) 0 Neut # (Auto) 9.0 H Lymph # (Auto) 0.8 L [place] # (Auto) 0.7 Eos # (Auto) 0.0 Baso # (Auto) 0.0 Immature Gran # (Auto) 0.24 H Absolute Nucleated RBC 0.17 H Immature Gran % 2 H Neutrophils % (Manual) 34 L Monocytes % (Manual) 4 Metamyelocytes % 24 H Myelocytes % 2 H Nucleated RBC % 2 H Band Neutrophils 28 H Lymphocytes (Manual) 8 L Smear Path Review Sent to Pathologist Puncture Site ABG pH ABG pCO2 ABG pO2 ABG HCO3 ABG O2 Saturation ABG Base Excess VBG pH 7.14 L VBG pCO2 107 H D VBG pO2 76 H D VBG O2 Sat (Sarika) 94 L VBG Base Excess 5 H FiO2 Sodium 148 H Potassium 4.5 D Chloride 105 Carbon Dioxide 36.9 H Anion Gap 6 L BUN 26 H Creatinine 1.9 H Estim Creat Clear Calc 32.8 L eGFR 47 L BUN/Creatinine Ratio 14 Glucose 121 H D Calculated Osmolality 299 H Lactic Acid 3.1 H Calcium 6.8 L* Corrected Calcium 8.0 L Phosphorus 4.3 Magnesium 2.1 Total Bilirubin 5.4 H D AST 70 H ALT 12 Alkaline Phosphatase 175 H Total Protein 5.0 L Albumin 2.5 L Globulin 2.5 Albumin/Globulin Ratio 1.0 L Misc Test Result Platelets confirmed 04/07/25 04:52 WBC RBC Hgb Hct MCV MCH MCHC RDW Std Deviation Plt Count Neut % (Auto) Lymph % (Auto) [place] % (Auto) Eos % (Auto) Baso % (Auto) Neut # (Auto) Lymph # (Auto) [place] # (Auto) Eos # (Auto) Baso # (Auto) Immature Gran # (Auto) Absolute Nucleated RBC Immature Gran % Neutrophils % (Manual) Monocytes % (Manual) Metamyelocytes % Myelocytes % Nucleated RBC % Band Neutrophils Lymphocytes (Manual) Smear Path Review Puncture Site Left Radial ABG pH 7.06 L* D ABG pCO2 126 H* D ABG pO2 62 L ABG HCO3 36 H ABG O2 Saturation 90 L ABG Base Excess 3 VBG pH VBG pCO2 VBG pO2 VBG O2 Sat (Sarika) VBG Base Excess FiO2 100 Sodium Potassium Chloride Carbon Dioxide Anion Gap BUN Creatinine Estim Creat Clear Calc eGFR BUN/Creatinine Ratio Glucose Calculated Osmolality Lactic Acid Calcium Corrected Calcium Phosphorus Magnesium Total Bilirubin AST ALT Alkaline Phosphatase Total Protein Albumin Globulin Albumin/Globulin Ratio Misc Test Result ABG Interpretation ABG results: 03/31/25 04/01/25 04/02/25 05:25 04:20 03:30 ABG pH 7.39 7.38 7.29 L ABG pCO2 35 35 39 ABG pO2 59 L* 77 L 56 L* D ABG HCO3 21 21 19 L ABG O2 Saturation 93 97 89 L ABG Base Excess -3 -4 L -7 L VBG pH VBG pCO2 VBG pO2 VBG Base Excess 04/02/25 04/02/25 04/02/25 10:18 13:45 15:13 ABG pH 7.24 L 6.98 L* D 7.02 L* ABG pCO2 44 90 H* D 79 H* D ABG pO2 74 L 79 L 79 L ABG HCO3 19 L 21 20 ABG O2 Saturation 95 91 93 ABG Base Excess -9 L -12 L -12 L VBG pH VBG pCO2 VBG pO2 VBG Base Excess 04/02/25 04/03/25 04/03/25 19:10 04:40 18:40 ABG pH 7.07 L* 7.07 L* 7.14 L* ABG pCO2 71 H* 70 H 71 H* ABG pO2 122 H D 134 H 74 L D ABG HCO3 20 20 24 ABG O2 Saturation 99 H 100 H 96 ABG Base Excess -11 L -11 L -6 L VBG pH VBG pCO2 VBG pO2 VBG Base Excess 04/04/25 04/04/25 04/05/25 04:35 13:50 05:17 ABG pH 7.12 L* 7.18 L* ABG pCO2 85 H* D 113 H* D ABG pO2 96 D 45 L* D ABG HCO3 28 H 42 H ABG O2 Saturation 98 82 L ABG Base Excess -3 10 H VBG pH 7.14 L VBG pCO2 93 H VBG pO2 58 VBG Base Excess 0 04/05/25 04/05/25 04/05/25 09:00 11:30 15:45 ABG pH 7.22 L ABG pCO2 105 H* ABG pO2 53 L* ABG HCO3 43 H ABG O2 Saturation 96 ABG Base Excess 12 H VBG pH 7.26 L 7.26 L VBG pCO2 96 H 95 H VBG pO2 47 56 VBG Base Excess 12 H 12 H 04/05/25 04/05/25 04/06/25 16:58 21:55 04:50 ABG pH 7.17 L* ABG pCO2 106 H* ABG pO2 80 L D ABG HCO3 39 H ABG O2 Saturation 96 ABG Base Excess 8 H VBG pH 7.23 L 7.23 L VBG pCO2 101 H 95 H VBG pO2 48 123 H D VBG Base Excess 10 H 9 H 04/06/25 04/06/25 04/07/25 09:15 19:44 04:52 ABG pH 7.16 L* 7.06 L* D ABG pCO2 111 H* 126 H* D ABG pO2 65 L 62 L ABG HCO3 39 H 36 H ABG O2 Saturation 92 90 L ABG Base Excess 8 H 3 VBG pH 7.14 L VBG pCO2 107 H D VBG pO2 76 H D VBG Base Excess 5 H Quality Measures Quality Measures none Assessment & Plan Assessment Current Active Medications: Generic Name Dose Route Start Last Admin Trade Name Freq PRN Reason Stop Dose Admin Acetaminophen 650 mg 03/31/25 09:08 03/31/25 10:57 Acetaminophen 325 Mg Tablet PO 04/30/25 09:07 650 mg Q6H PRN Administration Fever >101.5 Acetaminophen 650 mg 03/31/25 09:14 Acetaminophen 325 Mg Tablet PO 04/30/25 09:13 Q6H PRN PAIN SCALE 1-3 (mild Albuterol/Ipratropium 3 ml 03/31/25 11:00 04/07/25 10:24 Albuterol/Ipratropium (Duoneb) Rt Naila 3 Ml Nebu INH 04/30/25 10:59 3 ml Q4HRRT KATEY Administration Artificial Tears 0 drop 04/05/25 11:42 04/05/25 12:14 Artificial Tears 225 Drop/15 Ml Btl BOTH EYES 05/05/25 11:41 1 drop PRN PRN Administration TO KEEP EYES MOIST Clorazepate 3.75 Mg 0 ea 03/31/25 21:00 04/02/25 20:59 Tablet PO 04/30/25 20:59 1 tablet BID KATEY Administration Dextrose 25 ml 04/06/25 14:08 04/07/25 09:37 Dextrose 50%-Water Inj 50 Ml Syringe IV 05/06/25 14:07 25 ml Q15MIN PRN Administration BG 50-70 responsive npo pt Dextrose 50 ml 04/06/25 14:08 04/07/25 02:03 Dextrose 50%-Water Inj 50 Ml Syringe IV 05/06/25 14:07 50 ml Q15MIN PRN Administration BG <50 OR BG <70 & pt unresponsive Glucagon 1 mg 04/06/25 14:08 Glucagon Inj 1 Mg Vial IM Q15MIN PRN BG <70, and no IV access Heparin Sodium (Porcine) 5,000 unit 03/31/25 21:00 04/04/25 20:39 Heparin Sod Inj 5000 Unit/Ml Vial SC 04/14/25 20:59 5,000 unit BID KATEY Administration Hydrocortisone Sodium Succinate 50 mg 04/06/25 12:00 04/07/25 05:10 Hydrocortisone Sod Succ Inj 100 Mg Vial IV 05/06/25 11:59 50 mg Q6HR KATEY Administration Piperacillin/Tazobactam/Dextrose 3.375 gm in 50 mls @ 12.5 mls/hr 04/01/25 14:00 04/07/25 05:10 Zosyn IV 04/08/25 13:59 12.5 mls/hr Q8HR KATEY Administration Propofol 1,000 mg in 100 mls @ 1.332 mls/hr 04/02/25 08:22 04/05/25 07:43 Diprivan Ivpb IV 05/02/25 08:21 0 mcg/kg/min .Q24H PRN 0 mls/hr PER PROTOCOL Titration Protocol 5 MCG/KG/MIN Norepinephrine Bitartrate 16 mg in 250 mls @ 2.081 mls/hr 04/02/25 09:16 04/07/25 09:05 Levophed In Ns 16mg/250ml IV 05/02/25 09:15 1.17 mcg/kg/min .Q24H PRN 48.701 mls/hr PER protocol Administration Protocol 0.05 MCG/KG/MIN Vasopressin/Sodium Chloride 20 unit in 100 mls @ 9 mls/hr 04/02/25 17:37 04/07/25 06:18 Vasostrict/Ns Ivpb IV 05/02/25 17:36 0.03 unit/min .Q11H7M PRN 9 mls/hr PER PROTOCOL Administration Protocol 0.03 UNIT/MIN Sodium Bicarbonate 150 meq/ 500 mls @ 20 mls/hr 04/05/25 10:14 04/05/25 11:55 Dextrose IV 05/05/25 10:13 Not Given .Q24H KATEY Protocol Amiodarone HCl/Dextrose 360 mg in 200 mls @ 16.667 mls/hr 04/07/25 00:28 04/07/25 06:00 Nexterone Ivpb IV 16.667 mls/hr .Q12H KATEY Infusion Sodium Chloride 160 meq/ 1,040 mls @ 25 mls/hr 04/07/25 09:30 Dextrose IV 04/09/25 09:29 .Q24H KATEY Pantoprazole Sodium 40 mg 04/07/25 09:00 04/07/25 09:06 Pantoprazole Inj 40 Mg Vial IVP 05/07/25 08:59 40 mg QDAY KATEY Administration Pharmacy Consult 1 each 03/31/25 20:46 Pharmacy To Consult Patient XX 04/30/25 20:45 PRN PRN CONSULT Phenobarbital 32.4 mg 03/31/25 09:45 04/07/25 09:24 Phenobarbital 32.4 Mg Tablet GT 04/14/25 09:44 32.4 mg BID KATEY Administration Sennosides 1 tab 04/03/25 08:03 04/07/25 09:24 Senna Tablet GT 05/01/25 08:59 1 tab QDAY KATEY Administration Protocol Topiramate 200 mg 03/31/25 09:45 04/07/25 09:25 Topiramate 100 Mg Tablet GT 04/30/25 09:44 200 mg BID KATEY Administration Plan 35-year-old male with past medical history of cerebral palsy, seizures on phenobarbital and topiramate, status post PEG tube and tracheostomy, history of empyema and Pseudomonas pneumonia who was admitted on 03/31/2025 for sepsis secondary to acute hypoxic respiratory failure and ARDS due to pseudomonas pneumonia, COVID. [employer] Problem: Acute encephalopathy DDX: hypoxia, hypercapnia DX: RX: Continue fentanyl for sedation for ventilator synchrony RRX: History of Seizures - Holding phenobarbital and topiramate for hyperbilirubinemia to see if hyperiblirubienmia improves. Phenobarbital and topirimate have long half-lives. If patient starts to seize can give versed to break seizure and restart anti- epileptics. CVS Problem: Shock DDX: septic DX: RX: Continue levophed, vasopressin, hydrocortisone 50mg Q6H RRX: Levophed requirements decreasing after starting hydrocortisone. Will hold off fluids due to anasarca. SVT, resolved Multi-factorial due to underlying sepsis, metabolic demand, hypercapnia. - Holding amiodarone to minimize volume; amiodarone with long half-life. If patient goes into SVT again, can go down on levophed if BP permits or restart amiodarone. Unable to tolerate tablets via G tube due to decreased gastric motility as evidenced by high residuals. Respi Problem: Acute hypoxic respiratory failure, ARDS DDX: Pseudomonas pneumonia DX: P:F ratio, ABG, CXR, check Plateau pressures RX: IV Antibiotics, albuterol breathing treatment RRX: Minimal improvement with P:F ratio at 62, SpO2 at 90% despite FiO2 at 100%. Plateau pressures at 33 with driving pressure of 27. Overall, guarded prognosis with multiple co-morbidities. Family aware. Renal Problem: CASSANDRA DDX: Pre-renal, ATN DX: BUN, Cr, hourly urine output, follow renal panel RX: Continue pressors to maintain MAP > 60 RRX: Failed Lasix and albumin challenge. Patient not a candidate for dialysis due to multiple comorbidities. Family aware. Respiratory acidosis with metabolic alkalosis Compensating for respiratory acidosis. Allowing respiratory acidosis for permissive hypercapnia in the setting of ARDS. GI Problem: Hyperbilirubinemia, worsening DDX: Medication induced DX: POCUS gallbladder, direct bilirubin RX: IV antibiotics RRX: Cholestatic pattern however POCUS did not show ela sludge or thickened gallbladder wall. Holding phenobarbital and amiodarone as potential exacerbating medications Endo Problem: Hypoglycemia DDX: DX: Glucose checks Q1H RX: D10W at 25cc/hr RRX: Failed tube feeds. Starting D10 at low rate to minimize fluids. If continues to be hypoglycemic with hourly glucose checks, may increase rate to 30cc/hr. Heme Problem: Thrombocytopenia DDX: sepsis, medication side effect DX: RX: RRX: Continue heparin for DVT prophylaxis, hold if platelets < 50 ID Problem: Pseudomonas pneumonia DDX: DX: Sputum culture RX: Zosyn RRX: COVID positive, resolved Completed 5 days of remdesevir and dexamethasone. Health Maintenance Disposition: Admit to ICU for AHRF ARDS Pseudomonas PNA with multi-organ failure; guarded prognosis. Family aware of poor prognosis, and are thinking about comfort care. Will continue medical management until family decides to pursue comfort care. Diet and fluids: No tube feeds. DVT prophylaxis: heparin GI prophylaxis: protonix Lines: RIJ, tracheostomy tube, Davis, PEG tube, PIV CODE STATUS: DNR/DNI I have reviewed and discussed the patient's care with my attending, Dr. Tinajero, Mackenzie Herrmann MD PGY-3
[2025-04-07] MEDS: WATER IV (11:35)
[2025-04-07] MEDS: DEXTROSE 10% IV (11:35)
[2025-04-07] MEDS: SODIUM CHLOR ADDITIVE IV (11:35)
[2025-04-07] MEDS: fentaNYL 2,500 MCG/250 ML BAG 2,500 MCG/250 ML BAG 22.5 MCG IV (12:07)
--- NOTE | 2025-04-07 14:55 | PC.SS ---
SS update: patient is covid (+). Family deciding on comfort care measures, patient not a candidate for dialysis.
[2025-04-07] MEDS: BUMETANIDE INJ 0.25 MG/ML VIAL 4 ML 2 MG IVP (17:42)
[2025-04-07] MEDS: ALBUMIN HUMAN 25% IVPB 25 GM/100 ML BTL IV (17:43)
[2025-04-07] MEDS: LORazepam 2 MG/ML VIAL IVP (19:35)
[2025-04-07] MEDS: MORPHINE SULF INJ 10 MG/ML VIAL 2 MG IVP (19:35)
--- NOTE | 2025-04-07 20:14 | DES_ITS ---
<Statement entered by Isacc Tinajero MD - 04/09/25 10:14> TOTAL TIME: 45MINUTES ON DIRECT MEDICAL CARE, MANAGEMENT - COORDINATION AND COUNSELING > 50% OF TOTAL TIME I saw and evaluated the patient. I reviewed the resident?s note and agree with findings and plan as documented in the resident?s note. Documentation for date of: 04/08/25 Summary Date and Time Date of admission: 03/31/25 09:09 Summary Details: Summary: Patient was initially admitted for acute hypoxic respiratory failure secondary to Pseudomonas pneumonia on right pulmonary lung field and complicated by COVID pneumonia with diffuse bilateral infiltrates on chest x-ray on 03/31/2025 to [facility] with past medical history of cerebral palsy, history seizures on phenobarbital and topiramate, as status post PEG tube and tracheostomy (not on by blow at home), and history of empyema secondary to Pseudomonas pneumonia. Patient initially admitted on to floors and subsequently upgraded to ICU given concern for sepsis secondary to COVID-pneumonia complicated by hemoptysis and acute hypoxic respiratory failure requiring mechanical ventilation via tracheostomy. ER Course: ED course: ED vitals: BP 106 64, HR 97, RR 22, temp 97.1 ?F, O2 saturation 71%. ED labs: Thrombocytopenia, ABG with pH 7.39, with low PO2, CHEM panel mostly unremarkable aside from elevated liver enzymes and alk phos, procalcitonin 2.06, lactic acid 5.3. ED Dx: Chest x-ray shows significant bilateral pneumonia patient was found to also be positive for COVID-19. ED treatment: Zosyn, dexamethasone, doxycycline, DuoNebs, 1 L [facility] Course: In the ICU, patient arrived septic secondary to COVID-pneumonia requiring mechanical ventilation and was started on dexamethasone 6 mg daily with loading dose of remdesivir 200 mg x 1, followed by remdesivir 100 mg IV daily from 04/02/2025 through 04/05/2025. Initial P/F ratio of 92.25. Central venous Right IJ placed. Patient completed course of remdesivir. Zosyn started empirically given past medical history of pneumonia, Pseudomonas aeruginosa in 2023 blood cultures obtained, negative after 48 hours. Sputum cultures obtained noted for Pseudomonas aeruginosa resistant to several antibiotics but sensitive to Zosyn, thus continued. CTA chest negative for pulmonary artery emboli, extensive bilateral pneumonia, and incidental finding of atrophic right kidney with multiple staghorn calculi. Despite complete course of Remdesivir, patient's acute hypoxic respiratory failure did not improve as ABGs pO2 to be low, elevated HCO3, and noted to have respiratory acidosis with metabolic alkalosis compensation. Lasix and dimox both given during hospital course. Patient eventually developed septic shock secondary to pneumonia and respiratory acidosis requiring Levophed, Vasopressin, and sedation with Fentantly and Propofol. Anti-seizure medication held when patient was placed under sedation. Despite aggressive medical management, patient did not have improved respiratory function and chest x-rays continued to show severe ARDS and left upper lobe pneumonia. On April 05, 2025 patient required cardioversion as he developed SVT likely multi-factorial given multiple organ failure, metabolic disturbances and worsening respiratory function. Decision was made with family to transition patient to comfort care and stop all medical management. Patient on ?04/07/2025 at approximately 20:14. Patient was surrounded by parents and sibilings when comfort care measures were initiated. Please see pronoucement. #Comfort Care #Acute encphalopathy secondary Hypoxia & Hypercapnia #History of Seizures #Shock, septic #SVT #Acute Hypoxic Respiratory failure, ARDS #Pseudomonas Pneumonia #COVID Pneumonia, resolved. #CASSANDRA, likely pre-renal #Respiratory Acidosis w/ metabolic alkalosis #Hyperbilirubinemia #Hypoglycemia #Thrombocytopenia - The patient's plan was discussed with attending Dr. Tanvi Ohara MD PGY1 Internal Medicine Additional Data Confirmation of as documented by pronouncing clinician: no pulse, no respirations, no heart sounds and pupils fixed and dilated Family: at bedside and contacted Attending/PCP notified?: No Attending physician: Isacc Tinajero MD Was code activated?: No Visit Providers Provider Primary care physician: Puja Strickland PA-C Consults: 03/31/25 04:34 Referral Respiratory Therapy Stat Comment: 03/31/25 18:43 Referral Registered Dietitian Stat Comment: Instructions: Patient uses a peg tube at baseline for feedings. 03/31/25 20:52 Referral Infection Control Routine Comment: Reason for Infection Control Referral: Patient In Isolation 04/07/25 10:05 Referral Clemencia Routine Comment: Discharge Plan Plan Patient Disposition: Prescriptions/Referrals Referrals: Em,Chelsie, PA-C [Primary Care Provider] - Patient/Caregiver Discharge Instructions Education Materials: 2019-nCoV, Respiratory Distress Syndrome ... Print Language: Argentine Discharge Order Discharge Orders: Discharge (Routine); Ordered 04/07/25 Ordered By: Radha Barreto
--- NOTE | 2025-04-07 20:42 | DES_ITS ---
Documentation for date of: 04/07/25 Pronouncement Note Date and Time of Date of : 04/07/25 Time of : 20:14 PCOD Preliminary cause of : Cardiorespiratory arrest Summary Additional details: Mr. Garrison is a 35-year-old male with past medical history of cerebral palsy, seizures, PEG tube and tracheostomy placement who was admitted to [facility] for the management of Pseudomonas pneumonia. Patient had a lengthy stay in the ICU where he was found to have COVID-pneumonia and developed ARDS. Patient's respiratory status continued to worsen during his hospitalization and he developed septic shock. Goals of care discussion was had with the family and initially he was changed to DNR status. Later after further care and further declination in his condition family decided to change the patient to comfort care measures only. Patient was transition to comfort care measures around 6:45 PM on April 07 and at 8:14 PM patient without difficulty. He was comfortable and without agitation. Condolences were offered to the family. Additional Data Confirmation of : no pulse, no respirations, no heart sounds and pupils fixed and dilated Family: at bedside Attending/PCP notified?: Yes Attending physician: Isacc Tinajero MD Was code activated?: No Autopsy requested?: No latent fingerprint examiner notified?: No Organ bank notified?: No Advance directives: No
[2025-04-08 12:23] LABS: Neutrophils (Manual) 63 % (50-70)
[2025-04-08 12:24] LABS: Lymphocytes (Manual) 6 % (20-44); Metamyelocytes (Manual) 2 % (0-0); Monocytes (Manual) 0 % (2-9); Myelocytes (Manual) 1 % (0-0)
== END 2025-04-07 20:14 | disposition expired | DRG 720 ==
LOC: SERX 06:08 → SERHOLD 09:30 → S2SX 04-01 06:26 → SERHOLD 04-07 10:05
PROVIDERS: Emergency Medicine; Internal Medicine Critical Care Medicine; Student in an Organized Health Care Education/Training Program; Admitting Provider Internal Medicine; Emergency Provider Emergency Medicine; PCP Specialist; Visit Provider Internal Medicine
DX: A41.89 Other specified sepsis (principal); U07.1 COVID-19; R56.9 Unspecified convulsions; Z93.1 Gastrostomy status; G80.9 Cerebral palsy, unspecified; Z93.0 Tracheostomy status; J96.21 Acute and chronic respiratory failure with hypoxia; J12.82 Pneumonia due to coronavirus disease 2019; Z74.01 Bed confinement status; J96.01 Acute respiratory failure with hypoxia; J95.851 Ventilator associated pneumonia; Y84.8 Other medical procedures as the cause of abnormal reaction of the patient, or of later complication, without mention of misadventure at the time of the procedure; R04.2 Hemoptysis; D69.6 Thrombocytopenia, unspecified; R74.8 Abnormal levels of other serum enzymes; N26.1 Atrophy of kidney (terminal); N20.0 Calculus of kidney; E86.9 Volume depletion, unspecified; E87.0 Hyperosmolality and hypernatremia; E87.4 Mixed disorder of acid-base balance; E87.5 Hyperkalemia; J47.1 Bronchiectasis with (acute) exacerbation; J47.0 Bronchiectasis with acute lower respiratory infection; I47.10 Supraventricular tachycardia, unspecified; G93.41 Metabolic encephalopathy; J15.1 Pneumonia due to Pseudomonas; N17.9 Acute kidney failure, unspecified; I46.8 Cardiac arrest due to other underlying condition; R65.21 Severe sepsis with septic shock; D64.9 Anemia, unspecified; J86.9 Pyothorax without fistula; E16.2 Hypoglycemia, unspecified; Z51.5 Encounter for palliative care; Z91.199 Patient's noncompliance with other medical treatment and regimen due to unspecified reason; Z66 Do not resuscitate; Z79.899 Other long term (current) drug therapy
CPT/HCPCS: 36415; 36600; 71045; 71275; 80048; 80053; 80061; 80069; 80202; 81001; 82248; 82550; 82803; 83605; 83735; 84100; 84145; 84478; 84484; 85025; 85610; 86331; 86635; 87040; 87077; 87081; 87186; 87205; 87400; 87811; 93005; 94002; 94003; 94640; 94667; 96361; 96365; 96366; 96367; 96368; 96375; 99285; A4649; A9270; J0248; J0283; J0613; J1100; J1120; J1644; J1720; J1938; J1953; J2060; J2250; J2270; J2470; J2543; J2598; J2704; J2997; J3010; J3370; J3475; J3480; J3490; J7030; J7040; J7050; J7060; J7120; J7131; P9047; Q9967